=== PATIENT | male | born 1950 | race Two or more races ===

== ENCOUNTER 2024-09-10 15:09 | Inpatient (IN) | payer OTHER ==
[~2024-09-10] VITALS: Ht 167.6 cm; Wt 66.7 kg
[~2024-09-10 15:09] MED LIST: AMIT25TA19; CLON0.5T54; DOCU-94; GABA-1308; LAMO200T4; LISI-275; METH-1182; METO25TA5; NAPR-476; SIMV40TA18; TEMA30CA5; TRAM-411; [UNRECOGNIZED DRUG - CODE]
[2024-09-10 15:10] VITALS: RESP 18; O2SAT 100
[2024-09-10] MEDS: ATROPINE SULF 1 MG/10ml SYR IV ONE ×3 (15:39→18:45)
[2024-09-10] MEDS: ATROPINE SULFATE 1 MG/1 ML VIAL ONE (15:44)
[2024-09-10 15:49] LABS: Basophils # (auto) 0 10 ^3/uL (0-0.2); Eosinophils # (auto) 0 10 ^3/uL (0-0.8); Hematocrit 37.8 % (41.0-53.0); Hemoglobin 12.6 g/dL (13.5-17.5); Lymphocytes # (auto) 0.7 10 ^3/uL (0.4-5.4); Lymphocytes % (auto) 7.4 % (10.0-50.0); Mean Corpuscular Hemoglobin 31.7 pg (28.0-32.0); Mean Corpuscular Hgb Conc. 33.2 g/dL (32.0-36.0); Mean Corpuscular Volume 95.3 fL (80.0-100.0); Monocytes # (auto) 0.7 10 ^3/uL (0-1.3); Monocytes % (auto) 7.2 % (0.0-12.0); Neutrophils # (auto) 8.2 10 ^3/uL (1.6-8.6); Neutrophils % (auto) 85.4 % (37.0-80.0); Nucleated Red Blood Cells % 0.1 %; Platelet Count (auto) 79 10^3/uL (140-450); Red Blood Cells 3.97 10^6/uL (4.5-5.90); Red Cell Distribution Width 14.4 % (11.8-14.3); White Blood Cell 9.7 10^3/uL (4.4-10.8)
--- NOTE | 2024-09-10 15:55 | ED.PDOC ---
History of Present Illness HPI Comments 73 y/o M is BIBA for c/o lightheadedness, dizziness, nausea, and vomiting, today. Per EMS report, patient's spouse called on patient's behalf after endorsing symptoms for the past 3-4x days and, suddenly, began mumbling his speech, turning pale, and then sustaining a fall w/o injury or LOC, today. Patient, at time of assessment, informs onset of symptoms after consuming a "[employer]" at [place], while out with his , prior to [facility] along with additional endorsement of chills sensations, currently. EMS states on patient being bradycardic on scene and en route, with a rate within the 40's range, in addition to him having a blood glucose of 544 (patient reports being unable to take his insulin due to him vomiting). Patient denies any chest pain, shortness of breath, abdominal pain, fever, chills, or other associated symptoms or modifiers at this time. Per EMS, patient has a history of DM, HLD, HTN, WI, and CABG. Chief Complaint: Dizziness Time Seen by MD: 15:10 Reviewed Notes: Nurses Notes, Computer Equipment Repairer Notes, Medications, Allergies Allergies: Uncoded Allergies: TYPHOID (Allergy, Unknown, 09/10/24) Home Meds Reported Medications Venlafaxine Hcl (Venlafaxine Hcl Er) 75 Mg Tab 05/31/12 Tramadol Hcl (Rybix Odt) 50 Mg Tab 05/31/12 Temazepam (Restoril) 30 Mg Cap 05/31/12 Simvastatin (Simvastatin) 40 Mg Tab 05/31/12 Naproxen (Naproxen Dr) 500 Mg Tab 05/31/12 Metoprolol Tartrate (Metoprolol Tartrate) 25 Mg Tab 05/31/12 Methocarbamol (Methocarbamol) 750 Mg Tab 05/31/12 Lisinopril (Lisinopril) 5 Mg Tab 05/31/12 Lamotrigine (Lamictal Odt) 200 Mg Tab 05/31/12 Gabapentin (Gabapentin) 100 Mg Cap 05/31/12 Docusate Sodium (Colace) 100 Mg Cap 05/31/12 Clonazepam (Clonazepam Orally Disinte) 0.5 Mg Tab 05/31/12 Amitriptyline Hcl (Elavil) 25 Mg Tb 05/31/12 Information Source: Patient, Emergency Med Personnel Mode of Arrival: EMS Severity: Moderate Timing: Days Duration: Since onset Prehospital treatment: 12 Lead EKG, Accucheck, Tree Marker Past Medical History PAST MEDICAL HISTORY: DM (insulin dependent ), High Lipids, HTN, WI ( 2018) Surgical History: Appendectomy, CABG (2019) Family History Family History: Unobtainable Social History Smoker: Non-Smoker Alcohol: Denies ETOH Use Drugs: Denies Drug Use Lives In: Home All Other Systems: Reviewed and Negative (Comprehensive systems review obtained and negative except for what is stated in the HPI.) Physical Exam General Appearance: No Apparent Distress, Normal HEENT: Normal ENT Inspection, Pharynx Normal, TMs Normal Neck: Full Range of Motion, Non-Tender, Normal, Normal Inspection Respiratory: Chest Non-Tender, Lungs Clear, No Accessory Muscle Use, No Respiratory Distress, Normal Breath Sounds Cardiovascular: Bradycardia, No Edema, No JVD, No Murmur, No Gallop, Normal Per ipheral Pulses, Other (regular rhythm) Breast Exam: Deferred Gastrointestinal: No Organomegaly, Non Tender, No Pulsatile Mass, Normal Bowel Sounds, Soft Genitalia: Deferred Pelvic: Deferred Rectal: Deferred Extremities: No calf tenderness, Normal capillary refill, Normal inspection, Normal range of motion, Non-tender, No pedal edema Musculoskeletal : Apperance: Normal Neurologic: Alert, technologies division chair II-XII nml as Tested, No Motor Deficits, Normal Affect, Normal Mood, No Sensory Deficits Cerebellar Function: Normal Reflexes: Normal Skin: Dry, Normal Color, Warm Lymphatic: No Adenopathy Was a procedure done? Was a procedure done?: Yes Sedation Sedation?: No Informed consent obtained: No Central Line Recorder of insertion practice: Film Processing Shift Supervisor Occupation of label folder: Attending Physician Indication: Other (Transvenous Pacing) Room prepared for procedure: Yes Film Processing Shift Supervisor performed hand hygien: Yes Maximal sterile barrier precau: Mask/Eye shield, Sterlie gloves, Large sterlie drape Skin Preparation: Chlorhexidine gluconate Skin preparation completely dr: Yes Insertion site: Right, Internal jugular Central line catheter type: Other (Transvenous Pacer) Number of lumens: 1 Central line exchanged over a: Yes Antiseptic ointment applied to: Yes Post Assessment: Chest X-Ray, Proper placement, No Pneumothorax Informed consent obtained: No Risks/benefits/alt described: No Notes Patient with symptomatic bradycardia. Transvenous pacer was placed in the ER. Intubation Indication: Respiratory Insufficiency, Airway Protection Prep: Preoxygenation Pretreated with: Other (Versed) Medicated with: Other (Rocuronium) Intubation Approach: Orotracheal Intubation size: cm (8) Informed consent obtained: No Risks/benefits/alt described: No Differential Dx Considerations may include: anemia, viral syndrome, electrolyte imbalance, spoiled food, vertigo, sepsis, among others X-Ray, Labs, Meds, VS Vital Signs Date Time Temp Pulse Resp B/P (MAP) Pulse Ox O2 Delivery O2 Flow Rate FiO2 09/10/24 18:15 53 16 120/70 (87) 100 09/10/24 17:45 109 16 129/82 (98) 100 09/10/24 17:37 127/89 09/10/24 17:35 122/86 09/10/24 17:34 122/86 09/10/24 17:32 124/86 09/10/24 17:30 122 16 124/86 (99) 100 09/10/24 17:30 124/86 09/10/24 17:29 116/89 09/10/24 17:26 116/89 09/10/24 17:25 116/89 09/10/24 17:22 123/66 09/10/24 17:15 70 16 116/58 (77) 100 09/10/24 17:00 27 16 74/43 (53) 100 09/10/24 17:00 74/43 09/10/24 16:58 74/43 09/10/24 16:57 76/40 09/10/24 16:57 76/40 09/10/24 16:56 70/40 09/10/24 16:55 76/40 09/10/24 16:55 76/40 09/10/24 16:54 76/40 09/10/24 16:49 91/56 09/10/24 16:45 94 16 91/61 (71) 100 09/10/24 16:41 89 09/10/24 16:40 92 16 106/68 (81) 100 100 09/10/24 16:36 134/83 09/10/24 16:35 134/83 09/10/24 16:30 100 17 130/80 (97) 99 09/10/24 16:15 40 16 81/47 (58) 100 09/10/24 16:00 43 17 85/36 (52) 100 09/10/24 15:45 43 17 95/63 (74) 89 09/10/24 15:30 95 18 95/63 (74) 100 09/10/24 15:21 94 09/10/24 15:10 97.8 41 20 86/42 (57) 100 97.8 09/10/24 15:10 18 100 Room Air* 0 21 Lab Test 09/10/24 18:08 09/10/24 15:47 09/10/24 15:32 09/10/24 11:53 Range/Units Blood Gas Specimen Type Arterial Blood Gas Sample Site Left radial Blood Gas Patient Temperature 37.0 Arterial Blood Date Drawn [id number] Arterial Blood pH 7.275 L 7.350-7.450 Arterial Blood Partial Pressure CO2 32.7 L 35.0-48.0 mmHg Arterial Blood Partial Pressure O2 183.9 H 83.0-108.0 mmHg Arterial Blood HCO3 14.8 L 21.0-28.0 mmol/L Arterial Blood Oxygen Saturation 98.8 H 94.0-98.0 % Arterial Blood Base Excess -10.8 L -2.0-3.0 mmol/L Arterial Blood Oxyhemoglobin 98.2 H 94.0-98.0 % Arterial Blood Carboxyhemoglobin 0.3 L 0.5-1.5 % Arterial Blood Methemoglobin 0.3 0.0-1.5 % Bruno Test Modified Blood Gas Total Hemoglobin 12.90 L 13.5-17.5 g/dL Blood Gas Set Respiration Rate 16.0 Blood Gas Modality Vent - ac FiO2 % 60.0 Blood Gas Tidal Volume 500.0 Blood Gas PEEP or CPAP 5.0 Urine Color Yellow Yellow Urine Clarity Clear Clear Urine pH 5.0 5.0-9.0 Urine Specific [place] 1.019 1.001-1.035 Urine Protein Negative Negative Urine Ketones 1+ H Negative Urine Blood Negative Negative /uL Urine Nitrite Negative Negative Urine Bilirubin Negative Negative Urine Urobilinogen Normal Negative mg/dL Urine Leukocyte Esterase Negative Negative /uL Urine RBC 1 0 - 3 /hpf Urine Microscopic WBC 2 0-3 /HPF Urine Squamous Epithelial Cells Few <5 /hpf Urine Bacteria None seen None Seen /hpf Urine Hyaline Casts Many 0 - 2 /lpf Urine Mucus Few None Seen Urine Glucose 4+ H Normal mg/dL White Blood Count 9.7 4.4-10.8 10^3/uL Red Blood Count 3.97 L 4.5-5.90 10^6/uL Hemoglobin 12.6 L 13.5-17.5 g/dL Hematocrit 37.8 L 41.0-53.0 % Mean Corpuscular Volume 95.3 80.0-100.0 fL Mean Corpuscular Hemoglobin 31.7 28.0-32.0 pg Mean Corpuscular Hemoglobin Concent 33.2 32.0-36.0 g/dL Red Cell Distribution Width 14.4 H 11.8-14.3 % Platelet Count 79 L 140-450 10^3/uL Mean Platelet Volume 10.2 6.9-10.8 fL Neutrophils (%) (Auto) 85.4 H 37.0-80.0 % Lymphocytes (%) (Auto) 7.4 L 10.0-50.0 % Monocytes (%) (Auto) 7.2 0.0-12.0 % Eosinophils (%) (Auto) 0.0 0.0-7.0 % Basophils (%) (Auto) 0.0 0.0-2.0 % Neutrophils # (Auto) 8.2 1.6-8.6 10 ^3/uL Lymphocytes # (Auto) 0.7 0.4-5.4 10 ^3/uL Monocytes # (Auto) 0.7 0-1.3 10 ^3/uL Eosinophils # (Auto) 0 0-0.8 10 ^3/uL Basophils # (Auto) 0 0-0.2 10 ^3/uL Nucleated Red Blood Cells 0.1 % Platelet Estimate Decreased Red Blood Cell Morphology Normal Prothrombin Time 14.6 H 9.3-11.8 sec Prothrombin Time INR 1.43 H 0.9-1.15 Activated Partial Thromboplast Time 27.9 24.5-34.5 SEC Sodium Level 132 L 136-145 mmol/L Potassium Level 4.9 3.5-5.1 mmol/L Chloride Level 97 L 98-107 mmol/L Carbon Dioxide Level 19 L 20-31 mmol/L Anion Gap 16 H 5-15 Blood Urea Nitrogen 75 H 9-23 mg/dL Creatinine 2.25 H 0.700-1.30 mg/dL Glomerular Filtration Rate Calc 30 >90 mL/min BUN/Creatinine Ratio 33.3 H 10.0-20.0 Serum Glucose 540 *H 74-106 mg/dL Lactic Acid Level 8.7 *H 0.4-2.0 mmol/L Calcium Level 8.7 8.7-10.4 mg/dL Magnesium Level 2.6 1.6-2.6 mg/dL Total Bilirubin 2.2 H 0.2-1.0 mg/dL Aspartate Amino Transferase (AST) 865 H 13-40 U/L Alanine Aminotransferase (ALT) 805 H 7-40 U/L Alkaline Phosphatase 79 46-116 U/L Ammonia < 10 L 11-32 umol/L Troponin I High Sensitivity > 83680 *H </=54 ng/L Total Protein 6.0 5.7-8.2 g/dL Albumin 3.9 3.2-4.8 g/dL Triglycerides Level 92 < 150 mg/dL Cholesterol Level 87 < 200 mg/dL LDL Cholesterol 34 < 100 mg/dL HDL Cholesterol 35 L 40-59 mg/dL Beta-Hydroxybutyric Acid 0.325 < 0.4 mmol/L Thyroid Stimulating Hormone (TSH) 4.76 0.55-4.78 uIU/mL Hemoglobin A1c 7.8 H <5.7 % A1C Current Medications Medications (Trade) Dose Ordered Sig/Mervat Route Start Time Stop Time Status Last Admin Atropine Sulfate (Atropine Sulfate) 1 mg ONCE ONCE IV 09/10/24 15:35 09/10/24 15:43 DC 09/10/24 15:39 Rocuronium [place] 100 mg ONCE ONCE IV 09/10/24 16:30 09/10/24 16:40 DC 09/10/24 16:35 Midazolam HCl (Versed Injection) 10 mg ONCE ONCE IV 09/10/24 16:30 09/10/24 16:40 DC 09/10/24 16:34 Dopamine HCl/ Dextrose 250 ml @ 13.631 mls/ hr [id number] ONCE IV 09/10/24 16:45 09/11/24 11:05 09/10/24 16:49 Sodium Chloride 1,000 ml @ 1,000 mls/hr Q1H ONCE IV 09/10/24 16:45 09/10/24 17:44 DC 09/10/24 16:45 Epinephrine HCl 250 ml @ 7.5 mls/hr Q24H IV 09/10/24 17:00 09/10/24 16:54 Norepinephrine Bitartrate 250 ml @ 3.75 mls/hr Q24H IV 09/10/24 17:00 09/10/24 16:55 Atropine Sulfate (Atropine Sulfate) 1 mg ONCE ONCE IV 09/10/24 18:45 09/10/24 18:44 DC 09/10/24 16:48 Fentanyl Citrate 250 ml @ 2.5 mls/hr Q24H IV 09/10/24 19:00 09/10/24 16:36 Time of 1ST Reevaluation: 15:40 Reevaluation 1ST: Unchanged Patient Education/Counseling: Diagnosis, Treatment Family Education/Counseling: No Family Present Additional Information Previous medical encounters reviewed: May 31, 2012 encounter for black stool The following tests were ordered, and results were reviewed by me: CXR, EKG, ammonia, troponin, UA, lactic acid w/reflex, CMP, CBC Additional Information was gathered from interviewing the following independent historians: EMS I reviewed and agreed with the following test results read by other providers: CXR I discussed treatment and results with medical personnel and: Patient Departure 1 Departure Time of Disposition: 19:56 (Patient presented from home with symptomatic bradycardia. Patient was hypotensive becoming unresponsive. Patient then began aspirating. Patient was emergently intubated. Right IJ transvenous pacer was placed. Patient was placed appropriately. Patient was started on pressors. Discussed the case emergently with Dr. Galo who recommended once stabilized he will take the patient to dye lab technician. Patient went to dye lab technician) Impression: Primary Impression: Symptomatic bradycardia Additional Impressions: Acute chest pain Metabolic encephalopathy Cardiogenic shock Disposition: ADMITTED INPATIENT Admit to: ICU Condition: Critical Critical Care Note Critical Care Time?: Yes Critical care comment: Cardiogenic shock Authorized and Performed by: Lindsey Guardado MD Total critical care time: Approximately 122 minutes Due to a high probability of clinically significant, life threatening deterioration, the patient required my highest level of preparedness to intervene emergently and I personally spent this critical care time directly and personally managing the patient. This critical care time included obtaining a history; examining the patient; pulse oximetry; ordering and review of studies; arranging urgent treatment with development of a management plan; evaluation of patient's response to treatment; frequent reassessment; and, discussions with o ther providers. This critical care time was performed to assess and manage the high probability of imminent, life-threatening deterioration that could result in multi-organ failure. It was exclusive of separately billable procedures and treating other patients and teaching time. Please see my other sections and the rest of the note for further information on patient assessment and treatment. Stability Stability form required: No Heart Score Heart Score: Heart Score Response (Comments) Value History N/A 0 EKG N/A 0 Age N/A 0 Risk Factors N/A 0 Troponin N/A 0 Total 0 I personally scribed for LINDSEY GUARDADO MD ([email or web address]) on 09/10/24 at 15:55. Electronically submitted by Fran Pate ([email or web address]). LINDSEY GUARDADO MD Sep 10, 2024 15:55
[2024-09-10 15:56] LABS: Urine Bacteria None Seen /hpf (None Seen)
--- NOTE | 2024-09-10 15:59 | DVH ---
EXAM: XY CHEST PORTABLE TECHNIQUE: Single frontal chest radiograph CLINICAL HISTORY: sob COMPARISON: None Findings/Impression: Frontal chest radiograph demonstrates no acute osseous or superficial soft tissue abnormalities. The trachea is midline. The cardiac silhouette and mediastinum are within normal limits. No pneumothorax, pleural effusions, or consolidations.
[2024-09-10 16:07] LABS: Albumin 3.9 g/dL (3.2-4.8); Alkaline Phosphatase 79 U/L (46-116); Anion Gap 16 (5-15); BUN/Creatinine Ratio 33.3 (10.0-20.0); Potassium 4.9 mmol/L (3.5-5.1)
[2024-09-10 16:08] LABS: Alanine Aminotransferase 805 U/L (7-40); Aspartate Aminotransferase 865 U/L (13-40); Blood Urea Nitrogen 75 mg/dL (9-23); Calcium 8.7 mg/dL (8.7-10.4); Carbon Dioxide 19 mmol/L (20-31); Chloride 97 mmol/L (98-107); Sodium 132 mmol/L (136-145)
[2024-09-10 16:13] LABS: Bilirubin, Total 2.2 mg/dL (0.2-1.0); Glucose 540 mg/dL (74-106); Lactic Acid w/Reflex 8.7 mmol/L (0.4-2.0)
[2024-09-10 16:22] LABS: Urine Blood Negative /uL (Negative); Urine Clarity Clear (Clear); Urine Color Yellow (Yellow); Urine Hyaline Cast MANY /lpf (0 - 2); Urine Mucus FEW (None Seen); Urine Protein, UAD Negative (Negative); Urine Specific Gravity 1.019 (1.001-1.035); Urine Squamous Epithelial Cell FEW /hpf (<5); Urine Urobilinogen Normal (Negative); Urine WBC 2 /HPF (0-3)
[2024-09-10] MEDS: ROCURONIUM 10MG/ML 10ML VIAL IV ONE ×2 (16:27→16:35)
[2024-09-10] MEDS: SODIUM BICARB 8.4% 50Meq/50ml SYR INJ ONE (16:30)
[2024-09-10] MEDS: MIDAZOLAM DRIP 50 mg/50mL 50 ML IV ONE ×2 (16:34→19:33)
[2024-09-10] MEDS: MIDAZOLAM HCL 5 MG/ML-1ML VIAL IV ONE (16:34)
[2024-09-10] MEDS: fentaNYL Drip 2500mCg/250mlNS 250 ML IV ONE (16:36)
[2024-09-10] MEDS: fentaNYL Drip 2500mCg/250mlNS 250 ML IV SCH (16:36)
[2024-09-10] MEDS: DOPamine 1600MCG/ML D5W 250 ML IV ONE ×2 (16:39→16:49)
--- NOTE | 2024-09-10 16:41 | DVHINCON2 ---
Date Seen: Sep 10, 2024 Referring Physician MD Debby Reason for Consultation NSTEMI History of Present Illness This is a 73-year-old man who presented to the emergency room via EMS with a chief complaint of dizziness. At time of assessment, the patient was being endotracheally intubated, on single vasopressor, and chemically sedated. Information obtained from medical staff and who stated the patient has dete riorated including multiple events of dizziness, lightheadedness, chest pain, intermittent confusion, fall injuries, and seizure-like activity for the past week. States the patient was clenching over his chest and holding over his throat and jaw area which prompted her to call EMS. Prior to endotracheal intubation the patient displayed a sinus rhythm with intermittent bradycardia and sinus pauses for approximately 6 sec at a time for which the patient was initiated on an Epinephrine and Dopamine drip and a bedside temporary transvenous pacer placed by ED physician. He underwent multiple twelve lead electrocardiograms revealing a sinus rhythm with an associated right bundle branch block, left anterior fascicular block, and diffuse non-specific ST segment changes. Troponin levels were found >25,000 ng/L. Blood glucose level at 540 mg/dL. Dr. Guardado communicated directly with Dr. Galo, repairer controller tester STEMI, with recommendations for an urgent cardiac catheterization and coronary angiogram. Significant medical history includes coronary artery disease status post quadruple vessel coronary artery bypass graft in 2020 at [facility], hypertension, dyslipidemia, diabetes mellitus type 2, GERD, and chronic back pain. Past Medical History Past medical history reviewed. No other significant than mentioned above. Past Surgical History Quadruple vessel CABG, 2020 Family History Family history reviewed. Social History Denies the use of illicit drugs, alcohol, or tobacco use. Allergies: Uncoded Allergies: TYPHOID (Allergy, Unknown, 09/10/24) Home Meds Reported Medications Venlafaxine Hcl (Venlafaxine Hcl Er) 75 Mg Tab 05/31/12 Tramadol Hcl (Rybix Odt) 50 Mg Tab 05/31/12 Temazepam (Restoril) 30 Mg Cap 05/31/12 Simvastatin (Simvastatin) 40 Mg Tab 05/31/12 Naproxen (Naproxen Dr) 500 Mg Tab 05/31/12 Metoprolol Tartrate (Metoprolol Tartrate) 25 Mg Tab 05/31/12 Methocarbamol (Methocarbamol) 750 Mg Tab 05/31/12 Lisinopril (Lisinopril) 5 Mg Tab 05/31/12 Lamotrigine (Lamictal Odt) 200 Mg Tab 05/31/12 Gabapentin (Gabapentin) 100 Mg Cap 05/31/12 Docusate Sodium (Colace) 100 Mg Cap 05/31/12 Clonazepam (Clonazepam Orally Disinte) 0.5 Mg Tab 05/31/12 Amitriptyline Hcl (Elavil) 25 Mg Tb 05/31/12 Home Meds Home medications reviewed. Review of Systems Constitutional: No symptom reported Ears, Nose, & Throat: No symptom reported Eyes: No symptom reported Neurological: Dizziness, confusion Pulmonary/Respiratory: No symptom reported Cardiovascular: Chest pain Gastrointestinal: No symptom reported Genitourinary: No symptom reported Musculoskeletal: No symptom reported Skin: No symptom reported Psychiatric: No symptom reported Endocrine: No symptom reported Hemotologic/Lymphatic: No symptom reported Vital Signs Vital Signs Date Time Temp Pulse Resp B/P (MAP) Pulse Ox O2 Delivery O2 Flow Rate FiO2 09/10/24 15:21 94 09/10/24 15:10 97.8 20 86/42 (57) 100 97.8 Physical Exam General Appearance: Endotracheally intubated 100% FiO2. Chemically sedated. On multiple vasopressors Head Exam: Normal inspection Neck Exam: Normal inspection. Normal alignment Pulmonary/Respiratory: Clear bilateral breath sounds Cardiovascular/Chest: Regular rate and rhythm. S1, S2. Sinus rhythm with a associated RBBB, LAFB, and diffuse ischemia. No murmurs. No JVD. Peripheral Pulses: 2+ Radial (R). 2+ Radial (L). 2+ Pedal (R). 2+ Pedal (L) Abdominal Exam: Normal bowel sounds. Soft. Nontender. No hepatospenomegaly. No masses Ankle Exam: Negative ankle edema Lower extremities: Negative lower extremity edema Neuro/Mental Status: Chemically sedated Thoughts/Psych: Unable to assess Appearance: Withdrawn Skin Exam: Normal inspection. Normal color. Warm. Dry Labs/Diagnostic Data Labs Test 09/10/24 15:47 09/10/24 15:32 Range/Units Urine Color Yellow Yellow Urine Clarity Clear Clear Urine pH 5.0 5.0-9.0 Urine Specific [place] 1.019 1.001-1.035 Urine Protein Negative Negative Urine Ketones 1+ H Negative Urine Blood Negative Negative /uL Urine Nitrite Negative Negative Urine Bilirubin Negative Negative Urine Urobilinogen Normal Negative mg/dL Urine Leukocyte Esterase Negative Negative /uL Urine RBC 1 0 - 3 /hpf Urine Microscopic WBC 2 0-3 /HPF Urine Squamous Epithelial Cells Few <5 /hpf Urine Bacteria None seen None Seen /hpf Urine Hyaline Casts Many 0 - 2 /lpf Urine Mucus Few None Seen Urine Glucose 4+ H Normal mg/dL White Blood Count 9.7 4.4-10.8 10^3/uL Red Blood Count 3.97 L 4.5-5.90 10^6/uL Hemoglobin 12.6 L 13.5-17.5 g/dL Hematocrit 37.8 L 41.0-53.0 % Mean Corpuscular Volume 95.3 80.0-100.0 fL Mean Corpuscular Hemoglobin 31.7 28.0-32.0 pg Mean Corpuscular Hemoglobin Concent 33.2 32.0-36.0 g/dL Red Cell Distribution Width 14.4 H 11.8-14.3 % Platelet Count 79 L 140-450 10^3/uL Mean Platelet Volume 10.2 6.9-10.8 fL Neutrophils (%) (Auto) 85.4 H 37.0-80.0 % Lymphocytes (%) (Auto) 7.4 L 10.0-50.0 % Monocytes (%) (Auto) 7.2 0.0-12.0 % Eosinophils (%) (Auto) 0.0 0.0-7.0 % Basophils (%) (Auto) 0.0 0.0-2.0 % Neutrophils # (Auto) 8.2 1.6-8.6 10 ^3/uL Lymphocytes # (Auto) 0.7 0.4-5.4 10 ^3/uL Monocytes # (Auto) 0.7 0-1.3 10 ^3/uL Eosinophils # (Auto) 0 0-0.8 10 ^3/uL Basophils # (Auto) 0 0-0.2 10 ^3/uL Nucleated Red Blood Cells 0.1 % Sodium Level 132 L 136-145 mmol/L Potassium Level 4.9 3.5-5.1 mmol/L Chloride Level 97 L 98-107 mmol/L Carbon Dioxide Level 19 L 20-31 mmol/L Anion Gap 16 H 5-15 Blood Urea Nitrogen 75 H 9-23 mg/dL Creatinine 2.25 H 0.700-1.30 mg/dL Glomerular Filtration Rate Calc 30 >90 mL/min BUN/Creatinine Ratio 33.3 H 10.0-20.0 Serum Glucose 540 *H 74-106 mg/dL Lactic Acid Level 8.7 *H 0.4-2.0 mmol/L Calcium Level 8.7 8.7-10.4 mg/dL Total Bilirubin 2.2 H 0.2-1.0 mg/dL Aspartate Amino Transferase (AST) 865 H 13-40 U/L Alanine Aminotransferase (ALT) 805 H 7-40 U/L Alkaline Phosphatase 79 46-116 U/L Ammonia < 10 L 11-32 umol/L Troponin I High Sensitivity > 57583 *H </=54 ng/L Total Protein 6.0 5.7-8.2 g/dL Albumin 3.9 3.2-4.8 g/dL Assessment High-risk non ST-elevation myocardial infarction Sick sinus syndrome with severe bradycardia and sinus pauses s/p TV pacer Rule out progressive coronary artery disease Rule out structural heart disease Coronary artery disease status post quadruple CABG, 2020 Diabetes mellitus with diabetic ketoacidosis HX of hypertension Dyslipidemia Thrombocytopenia Likely AVA on CKD Plan/Recommendation (Dr. Galo) Dr. Guardado discussed case with Dr. Galo. Patient deemed to be a high risk NSTEMI for which he has been scheduled for an urgent cardiac catheterization and coronary angiogram at first available. All risks and benefits of the procedure were discussed with at bedside who agrees to proceed with intervention. Anticoagulation therapy held at this time given thrombocytopenia. We will obta in a transthoracic echocardiogram to evaluate cardiac function. In the meantime, continue vasopressors for hemodynamic support. Transvenous pacemaker set for a HR of 70 bpm. Obtain nephrology consult given likely AVA with high risk for KEVIN. Rest of plan per clinical course. Thank you for allowing us to participate in this patient's care. Please call if you have any questions or concerns. Critical care time: 73 min. This medical document was created using an electronic medical record system with voice recognition software and computerized dictation system. Although this document has been carefully reviewed, there might still be some phonetic and typographical errors. Occasional wrong-word or ``sound-alike substitutions may have occurred due to the inherent limitations of voice recognition software. These areas are purely typographical due to imperfections of the software programs and do not reflect any compromise in the patient's medical care. Please read the chart carefully and recognize, using context, where these substitutions have occurred. Plan discussed with: Spouse, Other NYHA Physical activity limitations: NA Date of Service: Sep 10, 2024 Billing Provider: GAYATHRI DOWNING Cardiology Common Codes: 16071-PIDAKOEV CARE 30-74 MIN GAYATHRI DOWNING Sep 10, 2024 16:41
[2024-09-10] MEDS: SODIUM CHLORIDE 0.9% 1,000 ML IV ONE ×2 (16:45→19:00)
--- NOTE | 2024-09-10 16:48 | ECG ---
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
[2024-09-10] MEDS: EPINEPHrine HCL 250 ML IV ONE (16:49)
[2024-09-10 16:53] LABS: Platelet Estimate Decreased; RBC Morphology Normal
[2024-09-10] MEDS: EPINEPHrine HCL 250 ML IV SCH (16:54)
[2024-09-10] MEDS: NOREPINEPHRINE 8 MG/250ML KIT 250 ML IV SCH (16:55)
[2024-09-10] MEDS: PHENYLEPHRINE IV 250 ML IV ONE (17:05)
--- NOTE | 2024-09-10 17:24 | DVH ---
EXAM: XY CHEST PORTABLE TECHNIQUE: Single frontal chest radiograph CLINICAL HISTORY: Post-intubation COMPARISON: XY CHEST PORTABLE on DOS: 09/10/24 Findings/Impression: Frontal chest radiograph demonstrates no acute osseous or superficial soft tissue abnormalities. Endotracheal tube terminates 5.2 cm from the raffi. The trachea is midline. The cardiac silhouette and mediastinum are within normal limits. No pneumothorax, pleural effusions, or consolidations.
[2024-09-10 17:26] LABS: Triglycerides 92 mg/dL (< 150)
[2024-09-10 17:27] LABS: LDL Cholesterol 34 mg/dL (< 100)
[2024-09-10 17:28] LABS: Cholesterol 87 mg/dL (< 200)
[2024-09-10 17:29] LABS: HDL Cholesterol 35 mg/dL (40-59)
[2024-09-10 17:34] LABS: INR 1.43 (0.9-1.15); Partial Thromboplastin Time 27.9 SEC (24.5-34.5); Prothrombin Time 14.6 sec (9.3-11.8)
--- NOTE | 2024-09-10 17:58 | DVHHP2 ---
History of Present Illness History of Present Illness 73 y/o M pmh dm, hld, htn, mi, cabg cc pt was brought in by ambulance cc per patient had chest pain he has been having chest pain for four years. But Tuesday they went to [employer] and he has a fist for lay she felt bad after eating the fish related but her was doing okay but he ended up eating one fistula laid in the later on the afternoon he ate the second one and 30 minutes after that he started vomiting he vomited all day Tuesday and Tuesday. He also started coughing violently on Tuesday. She also state he started cough in his morning with a weird sound and she was concerned she thought it was a dog but when she went to check on her he was putting his hand on his stroke and he was moving his tongue back and forth in his mouth. She was concerned so she called 911 for evaluation. When nursing was speaking with the patient he states he felt dizziness nausea and vomiting has been going on for Tuesday after he ate the fish for lay from [employer]. Patient was doing fine but later in the ER he had bradycardic and became hypotensive. So they intubated him for airway protection. He also was so bradycardia that he had to be trans paced. [place] [address] so Cardiology was called and we will sent directly to the [facility] lab[facility] but according to his he had questionable episode of falling. So she was concerned maybe he hit his head since patient has altered so they wanted to make sure CT scan of the brain showed no bleed which was negative. Patient was taken to the [facility] lab[facility] and we will be admitted to ICU after they had catheterization. When looking at labs CBC was unremarkable hemoglobin was 12.6 37.8 platelet count was [address] lactate was 8.7 ammonia was less than 10 troponin [place] 91120 TSH was 4.76 INR was 1.43 chest x-ray showed intubation. Past Medical History Diabetes hyperlipidemia hypertension [place] four years ago along with a CABG Past Surgical History Appendectomy and CABG Family History Unable to assess due to current mental status Past Social History Unable to assess due to current mental status Review of Systems Review of Systems Unable to assess due to current mental status intubated Respiratory: Cough Gastrointestinal: Nausea, Vomiting Allergies: Uncoded Allergies: TYPHOID (Allergy, Unknown, 09/10/24) Medications Current Medications Medications Dose Ordered Sig/Mervat Route Start Time Stop Time Status Last Admin Dose Admin Epinephrine HCl 250 ml @ 7.5 mls/hr Q24H IV 09/10/24 17:00 Norepinephrine Bitartrate 250 ml @ 3.75 mls/hr Q24H IV 09/10/24 17:00 Phenylephrine HCl 250 ml @ 30 mls/hr Q8H20M IV 09/10/24 17:15 Exam Vital Signs Vital Signs Date Time Temp Pulse Resp B/P (MAP) Pulse Ox O2 Delivery O2 Flow Rate FiO2 09/10/24 17:45 109 16 129/82 (98) 100 09/10/24 16:40 100 09/10/24 15:10 97.8 97.8 09/10/24 15:10 Room Air* 0 General Appearance: Other (Intubated) Respiratory: Other (Intubated lung sounds) Cardiovascular: Other (Bradycardia paced) Abdominal: Normal bowel sounds, Soft, No tenderness, No hepatospenomegaly, No masses Extremities: No clubbing, No cyanosis, No edema, Normal pulses, No tenderness/swelling Labs/Xrays Chest x-ray intubated at this time Labs Test 09/10/24 15:47 09/10/24 15:32 Range/Units Urine Color Yellow Yellow Urine Clarity Clear Clear Urine pH 5.0 5.0-9.0 Urine Specific [place] 1.019 1.001-1.035 Urine Protein Negative Negative Urine Ketones 1+ H Negative Urine Blood Negative Negative /uL Urine Nitrite Negative Negative Urine Bilirubin Negative Negative Urine Urobilinogen Normal Negative mg/dL Urine Leukocyte Esterase Negative Negative /uL Urine RBC 1 0 - 3 /hpf Urine Microscopic WBC 2 0-3 /HPF Urine Squamous Epithelial Cells Few <5 /hpf Urine Bacteria None seen None Seen /hpf Urine Hyaline Casts Many 0 - 2 /lpf Urine Mucus Few None Seen Urine Glucose 4+ H Normal mg/dL White Blood Count 9.7 4.4-10.8 10^3/uL Red Blood Count 3.97 L 4.5-5.90 10^6/uL Hemoglobin 12.6 L 13.5-17.5 g/dL Hematocrit 37.8 L 41.0-53.0 % Mean Corpuscular Volume 95.3 80.0-100.0 fL Mean Corpuscular Hemoglobin 31.7 28.0-32.0 pg Mean Corpuscular Hemoglobin Concent 33.2 32.0-36.0 g/dL Red Cell Distribution Width 14.4 H 11.8-14.3 % Platelet Count 79 L 140-450 10^3/uL Mean Platelet Volume 10.2 6.9-10.8 fL Neutrophils (%) (Auto) 85.4 H 37.0-80.0 % Lymphocytes (%) (Auto) 7.4 L 10.0-50.0 % Monocytes (%) (Auto) 7.2 0.0-12.0 % Eosinophils (%) (Auto) 0.0 0.0-7.0 % Basophils (%) (Auto) 0.0 0.0-2.0 % Neutrophils # (Auto) 8.2 1.6-8.6 10 ^3/uL Lymphocytes # (Auto) 0.7 0.4-5.4 10 ^3/uL Monocytes # (Auto) 0.7 0-1.3 10 ^3/uL Eosinophils # (Auto) 0 0-0.8 10 ^3/uL Basophils # (Auto) 0 0-0.2 10 ^3/uL Nucleated Red Blood Cells 0.1 % Platelet Estimate Decreased Red Blood Cell Morphology Normal Prothrombin Time 14.6 H 9.3-11.8 sec Prothrombin Time INR 1.43 H 0.9-1.15 Activated Partial Thromboplast Time 27.9 24.5-34.5 SEC Sodium Level 132 L 136-145 mmol/L Potassium Level 4.9 3.5-5.1 mmol/L Chloride Level 97 L 98-107 mmol/L Carbon Dioxide Level 19 L 20-31 mmol/L Anion Gap 16 H 5-15 Blood Urea Nitrogen 75 H 9-23 mg/dL Creatinine 2.25 H 0.700-1.30 mg/dL Glomerular Filtration Rate Calc 30 >90 mL/min BUN/Creatinine Ratio 33.3 H 10.0-20.0 Serum Glucose 540 *H 74-106 mg/dL Lactic Acid Level 8.7 *H 0.4-2.0 mmol/L Calcium Level 8.7 8.7-10.4 mg/dL Total Bilirubin 2.2 H 0.2-1.0 mg/dL Aspartate Amino Transferase (AST) 865 H 13-40 U/L Alanine Aminotransferase (ALT) 805 H 7-40 U/L Alkaline Phosphatase 79 46-116 U/L Ammonia < 10 L 11-32 umol/L Troponin I High Sensitivity > 91394 *H </=54 ng/L Total Protein 6.0 5.7-8.2 g/dL Albumin 3.9 3.2-4.8 g/dL Triglycerides Level 92 < 150 mg/dL Cholesterol Level 87 < 200 mg/dL LDL Cholesterol 34 < 100 mg/dL HDL Cholesterol 35 L 40-59 mg/dL Thyroid Stimulating Hormone (TSH) 4.76 0.55-4.78 uIU/mL Assessment/Plan Assessment/Plan Assessment/Plan nstemi metabolic encephalopathy needing intubation Acute sepsis Metabolic acidosis (sepsis likely from cardiogenic shock) needing intubation Acute lactic acidosis Severe leukocytosis Severe elevation in troponin consistent with NSTemi uncontrolled type 2 dm rule out dka acute thrombocytopenia chronic problems hld htn mi 4yrs ago cabg 4 yrs ago 1.Admit to intensive care unit 2.Breathing treatment as per respiratory, continue vent per abg curent abg shows metabolic acidosis ordered follow-up ABG, 3.Pain control management continue Versed drip 4.IV antibiotic management for sepsis source unknown ordered vanco and zosyn for now pt with elevated lactic and wbc elevated 5.Management of fluids and electrolytes, continue Aguayo catheter, OG tube strict IO's continue cont triple lumen, follow-up labs in am, ordered ivf ns for now 6.Consultation for cardiology post cath instruction per cards recs appears Dr. Galo will assist with procedure ct brain negative for bleed will start heparin for now monitor plt count currently low 79,000 cards consult follow recs for grossly elevated trop x3, will need to r/o NSTEMi pulmonary for vent management ordered heparin drip for now 7.Diagnostic test follow-up ordered echocardiogram fu results chest x-ray shows endotracheal tube in place ct brain negative for bleed pt send directly to [facility] 8.DVT prophylaxis, ordered heparin drip (will need to confirm with cards since thrombocytopenia) scd for now 9.Repeat labs now follow-up labs in a.m. ordered blood culture and lactic fu results order hemoglobin a1c in am ordered beta OH ordered accucheck q1h if with dka start of insulin drip 10.Continue with current medical management npo for now strict IO's 11.Treatment plan discussed and goals of care with and asuncion [id number] want full code for now Plan Admit to ICU Plan discussed with: Spouse, and son Plan discussed with: Spouse, Son Date of Service: Sep 10, 2024 Billing Provider: SADIE SARKAR DNP Common Visit Codes: 92440-[id number] INP/OBS CARE (HIGH), [id number] CARE 30- 74 MIN SADIE SARKAR DNP Sep 10, 2024 17:58
--- NOTE | 2024-09-10 17:58 | DVH ---
EXAM: XY CHEST XRAY 1 VIEW TECHNIQUE: Single frontal chest radiograph CLINICAL HISTORY: s/p transvenous pacemaker COMPARISON: XY CHEST PORTABLE on DOS: 09/10/24, XY CHEST PORTABLE on DOS: 09/10/24 Findings/Impression: Frontal chest radiograph demonstrates no acute osseous or superficial soft tissue abnormalities. Endotracheal tube terminates 3.5 cm from the raffi. Interval transvenous pacemaker terminates near t he right atrium. The trachea is midline. The cardiac silhouette and mediastinum are within normal limits. No pneumothorax, pleural effusions, or consolidations.
[2024-09-10 18:08] VITALS: BP 122/83; PULSE 107; RESP 16; O2SAT 98
[2024-09-10 18:15] LABS: Base Excess -10.8 mmol/L (-2.0-3.0)
--- NOTE | 2024-09-10 18:24 | DVH ---
EXAM: CT HEAD WITHOUT CONTRAST DATE OF SERVICE: 09/10/2024 05:52 PM ORDERING PHYSICIAN: LINDSEY VU REASON FOR EXAM: Confusion with fall injuries TECHNIQUE: COMPARISON: None FINDINGS: There is very slight cortical atrophy. There is no midline shift or focal mass effect the h ippocampal structures are symmetric there is no intracranial fluid collection or signs of hemorrhage. Midline structures are unremarkable Paranasal sinuses and mastoid air cells are clear calvarium is intact IMPRESSION: 1. . Mild cortical atrophy otherwise unremarkable study
[2024-09-10] MEDS: MIDAZOLAM HCL 10 ML IV ONE (18:40)
[2024-09-10] MEDS: NOREPINEPHRINE 8 MG/250ML KIT 250 ML IV ONE ×2 (18:41→21:15)
[2024-09-10] MEDS: LIDOCAINE 2%HCL (LOCAL ANESTH.) INJ 20ML MDV ONE ×2 (18:45→20:41)
[2024-09-10] MEDS: PHENYLEPHRINE IV 250 ML IV SCH (18:50)
--- NOTE | 2024-09-10 18:56 | ECG ---
[facility] Test Date: 2024-09-10 Test Time: 16:41:35 Pat Name: FABIO KNUTSON Department: ED Room: [address] [place] [address] Gender: M [employer]: AUREA : 1950 Requested By: SADIE SARKAR Order Number: [id number] Reading MD: Piter Peacock Measurements Intervals [place] Rate: 89 P: 18 AK: 170 QRS: -88 QRSD: 177 T: 97 QT: 468 QTc: 570 Interpretive Statements Sinus rhythm RBBB and LAFB Electronically Signed On 09-13-2024 20:40:50 PDT by Piter Peacock Please click the below link to view image of tracing.
[2024-09-10] MEDS: PIPERACILLIN-TAZOB 3.375GM 100 ML IV ONE (19:00)
[2024-09-10] MEDS ORDERED: DEXTROSE (50%) 50ML SYRG IV PRN (19:00)
[2024-09-10] MEDS ORDERED: VANCOMYCIN PER PHARMACY 0 MG IV SCH (19:00)
[2024-09-10] MEDS ORDERED: NITROGLYCERIN 0.4 MG SL TAB SL PRN (19:00)
[2024-09-10] MEDS: VANCOMYCIN 1GM/200ML PM 250 ML IV ONE ×2 (19:30→20:41)
[2024-09-10] MEDS: VANCOMYCIN HCL 1000 MG VL ONE ×2 (20:41→22:17)
--- NOTE | 2024-09-10 21:50 | DVHOP ---
DATE OF SURGERY: 09/10/2024 TECHNIQUE PERFORMED: * Emergency case. * Management of conscious sedation. * Fluoroscopic guidance and supervision. * Fluoroscopic guided insertion of a 6-[place] Islander arterial line from the right femoral artery. * Left heart catheterization. * Left ventriculogram. * [place] selective left and right coronary angiography. * Ascending aortogram. * Selective venous bypass graft angiography x3. * Venous bypass graft angiography to right coronary artery -- posterior descending artery. * Left subclavian vein angiography. * Left internal mammary artery angiography and right iliofemoral artery angiography, arteriotomy and Angio-Seal of the right coronary artery. * Right femoral venous central line placement. * Insertion of transcutaneous transvenous temporary pacemaker wire from right femoral vein to the right ventricle. COMPLICATIONS: None. ASSISTANTS: Assisted by Akil Garcia. Other assistants are Faith Jimenez Adriana. INDICATIONS: The patient to have an acute myocardial infarction, troponin 25,000. DESCRIPTION OF PROCEDURE: The patient have complete heart block, heart rate dropping down to 20. The patient was put on dopamine drip and dobutamine drip. Inotropic support was given. Atropine IV was given, stabilized, brought to labor specialist. Family informed. Indication, risks and benefits discussed. Right femoral artery had been punctured. A 6-[place] Islander arterial line also had been placed in a standard manner. Under fluoroscopy and at the end of the procedure, we also put a right femoral venous line 6-[place] Islander. Initially, we put a JL4 catheter and the left coronary angio done. With the help of a JR4 catheter, able to do the bypass graft angiography to posterior descending artery. With the help of similar catheter, went into the left subclavian, left subclavian angiography was done. Internal mammary angiography was done and we have put AL1 catheter. After putting the AL1 catheter, we noted that it did not go into any of the stump even, so now we did pigtail catheter. Complete left heart catheterization had been done. The left ventriculogram was done in the right anterior oblique view, total of 15 mL dye. Post-LV gram, left ventricular angiography had been performed with the help of pull-through technique. Aortic pressure was also performed. Procedure completed. Right iliofemoral artery angiography was done. CONCLUSION: * There is a left main which is 90% plus blocked in the mid region. * Left anterior descending artery 100% blocked in the mid region. * The patient's circumflex artery has an ostial stenosis in the range of 80%. The obtuse marginal artery completely blocked down. * The right coronary artery completely blocked down. descending artery is open. * The posterolateral branch arising from distal region of the right coronary artery has 90% narrowed, but ISHMAEL grade III flow has been noted. * The patient's left internal mammary artery graft to left anterior descending artery is widely open. * The bypass graft to obtuse marginal artery had been 100% blocked down. * The left ventricular ejection fraction is in the range of 15%, dilated left ventricle, severe global hypokinesis. PLAN OF ACTION: At this time, the patient needs a permanent pacemaker. He is not a candidate for any coronary intervention at this time and I think we were able to secure his electricity and we are going to put a permanent pacemaker wire, which I discussed with almost more than 10 family members waiting in lobby. He understands very well and I with the risks and benefits. Reid Galo MD MP/FAREED/ROBERT/MAUREEN TID: [id number] RECEIPT: [id number] MTDD
[2024-09-10] MEDS ORDERED: ATROPINE SULF 1 MG/10ml SYR IM ONE (22:44)
[2024-09-10 23:15] VITALS: BP 108/49; PULSE 62; RESP 16; O2SAT 98
--- NOTE | 2024-09-10 23:20 | DVH ---
CHEST RADIOGRAPH Indication: S/P PACEMAKER Technique: Single frontal view of the chest was obtained COMPARISON: XY CHEST XRAY 1 VIEW on DOS: 09/10/24, XY CHEST PORTABLE on DOS: 09/10/24, XY CHEST PORTABLE on DOS: 09/10/24 FINDINGS: Lines and Tubes: Interval insertion of dual-lead pacemaker overlying left chest wall with leads proj ecting over right atrium and ventricle. ETT in satisfactory position. Lungs: Clear Pleura: No effusion.No pneumothorax. Cardiomediastinal contours: Unremarkable Bones: Sternotomy. IMPRESSION: No acute abnormality demonstrated.
--- NOTE | 2024-09-10 23:28 | DVHOP ---
DATE OF SURGERY: 09/10/2024 TECHNIQUE PERFORMED: * Emergency case. * Left subclavian venography. * Ultrasound of the left subclavian vein. * Implantation of a dual chamber permanent pacemaker from the left subclavian region ([employer]tr[employer] device MRI proof). * Fluoroscopic guidance and supervision and management of conscious sedation, interrogation of the device. COMPLICATIONS: None. ASSISTANTS: Assisted by Kei Tanner Janice, and Kristen. The procedure done at approximately after 8:00 p.m. on 09/10/2024. INDICATIONS: The patient has complete heart block, heart rate dropping down to 20, patient was put on dopamine drip and also the Levophed drip and the patient was given doses of atropine and also temporary pacemaker wire was also placed. 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 Left chest was thoroughly cleaned with soap and Betadine and lidocaine was given. Ultrasound was done. Left subclavian venography was done under aseptic precaution under local anesthesia, the left subclavicular line was obtained. Wire was passed, needle was removed. Incision was made 2 inches horizontally. Subsequently, now we have put a 9-Turkmen venous sheath, difficult to get in, so we put a Cook dilator. Subsequently, we changed to Amplatz wire. Subsequently, we were able to get a 9-Turk[place] venous sheath. Dilator was removed and subsequently now we tried to put a ventricular lead. Ventricular lead was difficult to get in there, so now we put to the 9-Turkmen long venous sheath. Subsequently, the ventricular lead was put into the ventricle, screwed in very well at the lower portion of the interventricular septum. Sensing and capturing very well. Subsequently, we put a 7-Turkmen long venous sheath and the patient's atrial lead was passed, adjusted in a standard manner, screwed in very well. Both atrial and ventricular leads functioning very well. Both have been individually sutured with the help of the Ethibond and subsequently now we also put a pulse generator, screwed in very well, and put under the subpectoralis groove. The whole area was thoroughly cleaned with antibiotic solution, antibiotic vancomycin powder applied. Antibiotic sleeve was applied. Subsequently, with the help of 2-0 Vicryl followed by 3-0, the whole wound had been very well sutured for 2 times with the same suture. Subsequently, we also put a staple was applied. Tincture of benzoin, Steri-Strip, Telfa, Op-Site applied. Procedure went well without any complication. Levophed and dopamine have been turned off. We have following a report available at this time the patient's right atrial P-wave is 1.9, pacing impedance 589, threshold is 1.2 volt at 0.4 milliseconds. The R-wave is 6.3, impedance 608, the patient's threshold is 1.25 at 0.4 millisecond. Procedure went well. 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 Reid Galo MD MP/LUCÍA TID: [id number] RECEIPT: [id number]
[2024-09-10 23:30] VITALS: BP 109/42; PULSE 61; PULSE 80; RESP 16; RESP 20; TEMP 99.9; O2SAT 100; O2SAT 99
[2024-09-10 23:45] VITALS: BP 105/52; PULSE 60; RESP 17; TEMP 99.5; O2SAT 100
[2024-09-10] MEDS: MIDAZOLAM DRIP 50 mg/50mL 50 ML IV SCH (23:48)
--- NOTE | 2024-09-10 23:50 | DVH ---
CHEST RADIOGRAPH Indication: s/p permanent pacemaker r/o pneumothorx Technique: Single frontal view of the chest was obtained Comparison: XY CHEST PORTABLE on DOS: 09/10/24, XY CHEST XRAY 1 VIEW on DOS: 09/10/24, XY CHEST PORTABLE on DOS: 09/10/24 FINDINGS: Patient has a bipolar pacemaker with leads in standard positions. Heart size remains within normal limits there is prominent interstitium and prominent pulmonary vasculature endotracheal tube is just below the clavicles level of the aortic arch. Patient has had open thoracotomy.. There is a l eft pacer pads over the left lung base IMPRESSION: Mild pulmonary vascular congestion endotracheal tube is level of the aortic arch 1.
--- NOTE | 2024-09-10 23:55 | DVHINCON2 ---
Date Seen: Sep 10, 2024 Referring Physician MD Debby Reason for Consultation NSTEMI History of Present Illness This is a 73-year-old male with a significant medical history of coronary artery disease status post quadruple vessel coronary artery bypass graft in 2020 at [facility], hypertension, dyslipidemia, diabetes mellitus type 2, GERD, and chronic back pain who presented to the ED by EMS with complaints of di zziness. At time of assessment, the patient was endotracheally intubated, on single vasopressor, and chemically sedated. Information was obtained from medical staff and who stated the patient has deteriorated including multiple events of dizziness, lightheadedness, chest pain, intermittent confusion, fall injuries, and seizure-like activity for the past week. States the patient was clenching over his chest and holding over his throat and jaw area which prompted her to call EMS. Prior to endotracheal intubation the patient displayed a sinus rhythm with intermittent bradycardia and sinus pauses for approximately 6 sec at a time for which the patient was initiated on an Epinephrine and Dopamine drip and a bedside temporary transvenous pacer placed by ED physician. He underwent multiple twelve lead electrocardiograms revealing a sinus rhythm with an associated right bundle branch block, left anterior fascicular block, and diffuse non-specific ST segment changes. Troponin levels were found >25,000 ng/L. Blood glucose level at 540 mg/dL. Code STEMI was called. Patient will be going for urgent cardiac catheterization and coronary angiogram. Past Medical History Past medical history reviewed. No other significant than mentioned above. Past Surgical History Past medical history reviewed. No other significant than mentioned above. Allergies: Uncoded Allergies: TYPHOID (Allergy, Unknown, 09/10/24) Home Meds Reported Medications Venlafaxine Hcl (Venlafaxine Hcl Er) 75 Mg Tab 05/31/12 Tramadol Hcl (Rybix Odt) 50 Mg Tab 05/31/12 Temazepam (Restoril) 30 Mg Cap 05/31/12 Simvastatin (Simvastatin) 40 Mg Tab 05/31/12 Naproxen (Naproxen Dr) 500 Mg Tab 05/31/12 Metoprolol Tartrate (Metoprolol Tartrate) 25 Mg Tab 05/31/12 Methocarbamol (Methocarbamol) 750 Mg Tab 05/31/12 Lisinopril (Lisinopril) 5 Mg Tab 05/31/12 Lamotrigine (Lamictal Odt) 200 Mg Tab 05/31/12 Gabapentin (Gabapentin) 100 Mg Cap 05/31/12 Docusate Sodium (Colace) 100 Mg Cap 05/31/12 Clonazepam (Clonazepam Orally Disinte) 0.5 Mg Tab 05/31/12 Amitriptyline Hcl (Elavil) 25 Mg Tb 05/31/12 Current Medications Current Medications Medications (Trade) Dose Ordered Sig/Mervat Route PRN Reason Start Time Stop Time Status Last Admin Epinephrine HCl 250 ml @ 7.5 mls/hr Q24H IV 09/10/24 17:00 09/10/24 16:54 Norepinephrine Bitartrate 250 ml @ 3.75 mls/hr Q24H IV 09/10/24 17:00 09/10/24 16:55 Phenylephrine HCl 250 ml @ 30 mls/hr Q8H20M IV 09/10/24 17:15 Fentanyl Citrate 250 ml @ 2.5 mls/hr Q24H IV 09/10/24 19:00 09/10/24 16:36 Nitroglycerin (Ntrostat Sublingual) 0.4 mg Q5MINP PRN SL FOR CHEST PAIN 09/10/24 19:00 Diagnostic Test (Pha) (Accu-Chek Comfort Curve T) 1 strip Q1HR 09/10/24 19:00 Insulin Human Regular (InsuLIN R) Q6HR SC 09/11/24 00:00 Dextrose 50 ml UD PRN IV Blood Sugar LESS THAN 60 09/10/24 19:00 Midazolam HCl 50 ml @ 1 mls/hr Q24H IV 09/10/24 19:00 Vancomycin HCl 0 ml @ 0 mls/hr UD IV 09/10/24 19:00 Piperacillin Sod/ Tazobactam Sod 100 ml @ 25 mls/hr Q8H IV 09/11/24 03:00 Review of Systems Constitutional: No symptom reported Ears, Nose, & Throat: No symptom reported Eyes: No symptom reported Neurological: Dizziness, confusion Pulmonary/Respiratory: No symptom reported Cardiovascular: Chest pain Gastrointestinal: No symptom reported Genitourinary: No symptom reported Musculoskeletal: No symptom reported Skin: No symptom reported Psychiatric: No symptom reported Endocrine: No symptom reported Hemotologic/Lymphatic: No symptom reported Vital Signs Vital Signs Date Time Temp Pulse Resp B/P (MAP) Pulse Ox O2 Delivery O2 Flow Rate FiO2 09/10/24 18:15 53 16 120/70 (87) 100 09/10/24 16:40 100 09/10/24 15:10 97.8 97.8 09/10/24 15:10 Room Air* 0 Physical Exam GENERAL: Ill appearing, intubated on ventilator. EYES: PERRL, EOMI. Anicteric. HENT: Moist mucous membranes. LUNGS: Clear to auscultation bilaterally. CARDIOVASCULAR: Regular rate and rhythm. ABDOMEN: Soft, non-tender and non-distended. EXTREMITIES: No edema. NEUROLOGIC: Chemically sedated. SKIN: Warm, dry. Labs/Diagnostic Data Labs Test 09/10/24 18:08 09/10/24 15:47 09/10/24 15:32 09/10/24 11:53 Range/Units Blood Gas Specimen Type Arterial Blood Gas Sample Site Left radial Blood Gas Patient Temperature 37.0 Arterial Blood Date Drawn [id number] Arterial Blood pH 7.275 L 7.350-7.450 Arterial Blood Partial Pressure CO2 32.7 L 35.0-48.0 mmHg Arterial Blood Partial Pressure O2 183.9 H 83.0-108.0 mmHg Arterial Blood HCO3 14.8 L 21.0-28.0 mmol/L Arterial Blood Oxygen Saturation 98.8 H 94.0-98.0 % Arterial Blood Base Excess -10.8 L -2.0-3.0 mmol/L Arterial Blood Oxyhemoglobin 98.2 H 94.0-98.0 % Arterial Blood Carboxyhemoglobin 0.3 L 0.5-1.5 % Arterial Blood Methemoglobin 0.3 0.0-1.5 % Bruno Test Modified Blood Gas Total Hemoglobin 12.90 L 13.5-17.5 g/dL Blood Gas Set Respiration Rate 16.0 Blood Gas Modality Vent - ac FiO2 % 60.0 Blood Gas Tidal Volume 500.0 Blood Gas PEEP or CPAP 5.0 Urine Color Yellow Yellow Urine Clarity Clear Clear Urine pH 5.0 5.0-9.0 Urine Specific [place] 1.019 1.001-1.035 Urine Protein Negative Negative Urine Ketones 1+ H Negative Urine Blood Negative Negative /uL Urine Nitrite Negative Negative Urine Bilirubin Negative Negative Urine Urobilinogen Normal Negative mg/dL Urine Leukocyte Esterase Negative Negative /uL Urine RBC 1 0 - 3 /hpf Urine Microscopic WBC 2 0-3 /HPF Urine Squamous Epithelial Cells Few <5 /hpf Urine Bacteria None seen None Seen /hpf Urine Hyaline Casts Many 0 - 2 /lpf Urine Mucus Few None Seen Urine Glucose 4+ H Normal mg/dL White Blood Count 9.7 4.4-10.8 10^3/uL Red Blood Count 3.97 L 4.5-5.90 10^6/uL Hemoglobin 12.6 L 13.5-17.5 g/dL Hematocrit 37.8 L 41.0-53.0 % Mean Corpuscular Volume 95.3 80.0-100.0 fL Mean Corpuscular Hemoglobin 31.7 28.0-32.0 pg Mean Corpuscular Hemoglobin Concent 33.2 32.0-36.0 g/dL Red Cell Distribution Width 14.4 H 11.8-14.3 % Platelet Count 79 L 140-450 10^3/uL Mean Platelet Volume 10.2 6.9-10.8 fL Neutrophils (%) (Auto) 85.4 H 37.0-80.0 % Lymphocytes (%) (Auto) 7.4 L 10.0-50.0 % Monocytes (%) (Auto) 7.2 0.0-12.0 % Eosinophils (%) (Auto) 0.0 0.0-7.0 % Basophils (%) (Auto) 0.0 0.0-2.0 % Neutrophils # (Auto) 8.2 1.6-8.6 10 ^3/uL Lymphocytes # (Auto) 0.7 0.4-5.4 10 ^3/uL Monocytes # (Auto) 0.7 0-1.3 10 ^3/uL Eosinophils # (Auto) 0 0-0.8 10 ^3/uL Basophils # (Auto) 0 0-0.2 10 ^3/uL Nucleated Red Blood Cells 0.1 % Platelet Estimate Decreased Red Blood Cell Morphology Normal Prothrombin Time 14.6 H 9.3-11.8 sec Prothrombin Time INR 1.43 H 0.9-1.15 Activated Partial Thromboplast Time 27.9 24.5-34.5 SEC Sodium Level 132 L 136-145 mmol/L Potassium Level 4.9 3.5-5.1 mmol/L Chloride Level 97 L 98-107 mmol/L Carbon Dioxide Level 19 L 20-31 mmol/L Anion Gap 16 H 5-15 Blood Urea Nitrogen 75 H 9-23 mg/dL Creatinine 2.25 H 0.700-1.30 mg/dL Glomerular Filtration Rate Calc 30 >90 mL/min BUN/Creatinine Ratio 33.3 H 10.0-20.0 Serum Glucose 540 *H 74-106 mg/dL Lactic Acid Level 8.7 *H 0.4-2.0 mmol/L Calcium Level 8.7 8.7-10.4 mg/dL Magnesium Level 2.6 1.6-2.6 mg/dL Total Bilirubin 2.2 H 0.2-1.0 mg/dL Aspartate Amino Transferase (AST) 865 H 13-40 U/L Alanine Aminotransferase (ALT) 805 H 7-40 U/L Alkaline Phosphatase 79 46-116 U/L Ammonia < 10 L 11-32 umol/L Troponin I High Sensitivity > 42123 *H </=54 ng/L Total Protein 6.0 5.7-8.2 g/dL Albumin 3.9 3.2-4.8 g/dL Triglycerides Level 92 < 150 mg/dL Cholesterol Level 87 < 200 mg/dL LDL Cholesterol 34 < 100 mg/dL HDL Cholesterol 35 L 40-59 mg/dL Beta-Hydroxybutyric Acid 0.325 < 0.4 mmol/L Thyroid Stimulating Hormone (TSH) 4.76 0.55-4.78 uIU/mL Hemoglobin A1c 7.8 H <5.7 % A1C Assessment High-risk non ST-elevation myocardial infarction. Sick sinus syndrome with severe bradycardia and sinus pauses s/p TV pacer. Rule out progressive coronary artery disease. Rule out structural heart disease. Coronary artery disease status post quadruple CABG, 2020. Diabetes mellitus with diabetic ketoacidosis. HX of hypertension. Dyslipidemia. Thrombocytopenia. Likely AVA on CKD. Plan/Recommendation I agree with your ongoing assessment and care of plan. Patient has been seen by Trice Boyer NP on my behalf. We have discussed the plan with the patient. I discussed the case with Dr. Guardado. Patient deemed to be a high risk NSTEMI for which he has been scheduled for an urgent cardiac catheterization and coronary angiogram at first available. All risks and benefits of the procedure were discussed with at bedside who agrees to proceed with intervention. Anticoagulation therapy held at this time given thrombocytopenia. We will obtain a transthoracic echocardiogram to evaluate cardiac function. In the meantime, continue vasopressors for hemodynamic support. Transvenous pacemaker set for a HR of 70 bpm. Obtain nephrology consult given likely AVA with high risk for KEVIN. Additional plan as per the hospital course. Plan discussed with: Other NYHA Physical activity limitations: NA Date of Service: Sep 10, 2024 Billing Provider: AVELINO GREWAL MD Cardiology Common Codes: [id number] INP/OBS CARE (High), [id number] CARE 30-74 MIN AVELINO GREWAL MD Sep 10, 2024 23:55
[2024-09-11] VITALS (109 sets, daily range): BP systolic 80–173; BP diastolic 20–86; PULSE 60–105; RESP 13–22; TEMP 94.3–100.9; O2SAT 98–100
[2024-09-11] MEDS: ACCU-CHEK COMFORT CURVE STRIP VI SCH ×3 (00:17→12:21)
[2024-09-11] MEDS: InsuLIN REG 1unit/0.01ml Soln (100units/ml) SC SCH ×3 (00:26→12:23)
[2024-09-11] MEDS ORDERED: DEXTROSE (50%) 50ML SYRG IV PRN ×2 (00:45→10:00)
[2024-09-11] MEDS: INSULIN LANTUS (GLARGINE) 1 /0.01ml (100units/ml) SC ONE (01:03)
[2024-09-11] MEDS: FUROSEMIDE 20 MG/2 ML VIAL IV ONE (02:12)
[2024-09-11] MEDS: PIPERACILLIN-TAZOB 3.375GM 100 ML IV SCH (03:00)
[2024-09-11 03:55] LABS: Basophils # (auto) 0 10 ^3/uL (0-0.2); Basophils % (auto) 0.1 % (0.0-2.0); Eosinophils # (auto) 0 10 ^3/uL (0-0.8); Hematocrit 33.9 % (41.0-53.0); Hemoglobin 11.7 g/dL (13.5-17.5); Lymphocytes # (auto) 0.8 10 ^3/uL (0.4-5.4); Lymphocytes % (auto) 7.1 % (10.0-50.0); Mean Corpuscular Hemoglobin 32.6 pg (28.0-32.0); Mean Corpuscular Hgb Conc. 34.6 g/dL (32.0-36.0); Mean Corpuscular Volume 94.1 fL (80.0-100.0); Monocytes # (auto) 0.7 10 ^3/uL (0-1.3); Monocytes % (auto) 6.3 % (0.0-12.0); Neutrophils # (auto) 9.4 10 ^3/uL (1.6-8.6); Neutrophils % (auto) 86.5 % (37.0-80.0); Nucleated Red Blood Cells % 0.5 %; Platelet Count (auto) 70 10^3/uL (140-450); White Blood Cell 10.8 10^3/uL (4.4-10.8)
[2024-09-11 04:07] LABS: Chloride 100 mmol/L (98-107); Potassium 4.1 mmol/L (3.5-5.1)
[2024-09-11 04:08] LABS: Anion Gap 12 (5-15); Calcium 8.1 mg/dL (8.7-10.4); Carbon Dioxide 22 mmol/L (20-31); Sodium 134 mmol/L (136-145)
[2024-09-11 04:16] LABS: BUN/Creatinine Ratio 38.8 (10.0-20.0); Blood Urea Nitrogen 78 mg/dL (9-23)
[2024-09-11 04:18] LABS: Glucose 497 mg/dL (74-106)
[2024-09-11 04:24] LABS: Lactic Acid w/Reflex 3.7 mmol/L (0.4-2.0)
[2024-09-11] MEDS ORDERED: FUROSEMIDE 40 MG/4 ML VIAL IV SCH (06:00)
[2024-09-11] MEDS: FUROSEMIDE 20 MG/2 ML VIAL IV SCH (06:09)
[2024-09-11 07:27] LABS: Base Excess -5.5 mmol/L (-2.0-3.0)
[2024-09-11] MEDS ORDERED: cefTRIAXone 1GM/50ML D5W 50 ML IV SCH (09:00)
--- NOTE | 2024-09-11 10:11 | DVHPN2 ---
Consult Progress Note Date Seen: Sep 11, 2024 Subjective Other Systems: No overnight cardiac events. Reported weak pedal pulses Objective vital signs Vital Sign Date Time Temp Pulse Resp B/P (MAP) Pulse Ox O2 Delivery O2 Flow Rate FiO2 09/11/24 09:15 96.6 80 17 121/37 (65) 100 205.9 09/11/24 08:00 Mechanical Ventilator+ 30 30 09/10/24 15:10 0 Total Intake and Output 09/10/24 09/10/24 09/11/24 15:00 23:00 07:00 Intake Total 1000 ml 158.0 ml Output Total 700 ml Balance 1000 ml -542.0 ml medications Current Medications Medications Dose Ordered Sig/Mervat Route Start Time Stop Time Status Last Admin Dose Admin Epinephrine HCl 250 ml @ 7.5 mls/hr Q24H IV 09/10/24 17:00 09/10/24 16:54 11.25 MLS/HR Norepinephrine Bitartrate 250 ml @ 3.75 mls/hr Q24H IV 09/10/24 17:00 09/11/24 02:34 3.75 MLS/HR Phenylephrine HCl 250 ml @ 30 mls/hr Q8H20M IV 09/10/24 17:15 Fentanyl Citrate 250 ml @ 2.5 mls/hr Q24H IV 09/10/24 19:00 09/10/24 16:36 2.5 MLS/HR Nitroglycerin 0.4 mg Q5MINP PRN SL 09/10/24 19:00 Midazolam HCl 50 ml @ 1 mls/hr Q24H IV 09/10/24 19:00 09/10/24 23:48 6 MLS/HR Vancomycin HCl 0 ml @ 0 mls/hr UD IV 09/10/24 19:00 Piperacillin Sod/ Tazobactam Sod 100 ml @ 25 mls/hr Q8H IV 09/11/24 03:00 09/11/24 03:00 25 MLS/HR Insulin Glargine 25 units HS SC 09/11/24 22:00 Diagnostic Test (Pha) 1 strip IQ4HR 09/11/24 04:00 09/11/24 07:39 1 STRIP Insulin Human Regular IQ4HR SC 09/11/24 04:00 09/11/24 07:45 10 UNITS Dextrose 50 ml UD PRN IV 09/11/24 00:45 Ceftriaxone Sodium 50 ml @ 100 mls/hr DAILY@09 IV 09/11/24 09:00 Hold Furosemide 20 mg TID IV 09/11/24 06:00 09/11/24 06:09 20 MG Examination: GENERAL:Abnormal, LUNGS:Abnormal (Endotracheally intubated 30% FiO2), CVS:Abnormal (Paced rhythm. On single-vasopressor), MSK:Abnormal (RUE swelling), NEURO:Abnormal (Chemically sedated) laboratory and microbiology Laboratory Tests 09/11/24 03:15 Test 09/11/24 03:15 Range/Units Serum Glucose 497 *H 74-106 mg/dL Problem List/Assessment/Plan Problem List/Assessment/Plan High-risk non ST-elevation myocardial infarction with progressive coronary artery disease Sick sinus syndrome with severe bradycardia and sinus pauses s/p TV pacemaker s/p permanent dual-chamber pacemaker Coronary artery disease status post quadruple CABG, 2020 Diabetes mellitus with diabetic ketoacidosis Rule out structural heart disease HX of hypertension Dyslipidemia Thrombocytopenia Elevated LFTs Likely AVA on CKD Plan/Recommendation (Dr. Galo) Continue with transthoracic echocardiogram to evaluate cardiac function, preliminary LVEF 10-15% by visual estimate. Obtain a bilateral lower extremity arterial duplex given reported diminished pedal pulses. Obtain a RUE venous US rule out DVT. Continue vasopressor for hemodynamic support. Preload reduction as tolerated. DVT/VTE prophylaxis: SCDs. Hold antiplatelet/anticoagulation given thrombocytopenia. The patient may be a candidate for a pacemaker upgrade to ICD given decreased LV function. Continue Nephrology recommendations. Rest of plan per clinical course. Thank you for allowing us to participate in this patient's care. Please call if you have any questions or concerns. Critical care time: 35 min. This medical document was created using an electronic medical record system with voice recognition software and computerized dictation system. Although this document has been carefully reviewed, there might still be some phonetic and typographical errors. Occasional wrong-word or ``sound-alike substitutions may have occurred due to the inherent limitations of voice recognition software. These areas are purely typographical due to imperfections of the software programs and do not reflect any compromise in the patient's medical care. Please read the chart carefully and recognize, using context, where these substitutions have occurred. Plan discussed with: Other Date of Service: Sep 11, 2024 Billing Provider: GAYATHRI DOWNING Cardiology Common Codes: [id number] INP/OBS CARE (High) GAYATHRI DOWNING Sep 11, 2024 10:11
[2024-09-11] MEDS: PANTOPRAZOLE 40 MG/10 ML VIAL INJ IV ONE (10:15)
[2024-09-11 10:42] LABS: Magnesium 2.9 mg/dL (1.6-2.6)
[2024-09-11] MEDS: INSULIN LANTUS (GLARGINE) 1 /0.01ml (100units/ml) SC SCH (11:02)
--- NOTE | 2024-09-11 11:38 | DVHPNRES ---
Progress Note Date Seen: Sep 11, 2024 Resident Creating Document: ISAIAH CARIAS RESIDENT Medical Necessity Reason Pt with a Central, PICC or Fol: Yes The following are medically ne: Central Line, Aguayo Catheter Subjective Review of Systems This is a 73-year-old male who was brought into the ED with chief complain of chest pain, dizziness, lightheadedness, vomiting, mumbling speech. Past Medical History: Diabetes, hyperlipidemia, hypertension, CABG- quad vessel. Past Surgical History: Appendectomy and CABG, vocal cord surgery one month ago Past Social History: Quit smoking 22 years ago, was a heavy smoker for 15 years. She also quit drinking 22 year, unknown alcohol intake. Denied illicit drug use. Lives at home with the spouse. Home medications: Amitriptyline, clonazepam, docusate, gabapentin, lamotrigine, lisinopril 5 mg, methocarbamol, metoprolol 25 mg, naproxen 500 mg, simvastatin 40 mg, temazepam, tramadol, venlafaxine Patient was initially brought in by ambulance, history was gathered per . She stated that the patient has been experiencing lightheadedness, dizziness, nausea, vomiting for the last 3-4 days. She also stated that she has been falling frequently for the last couple of months. She also stated that he has been experiencing chest pain since he had the CABG procedure in 2020. However in the last couple of days this chest pain became unbearable. Z that the patient was also experiencing coughing, having chills. When she brought her to the hospital she noticed that his speech was mumbling. stated that the patient has a start any new medications in the last 4-6 weeks and denied any sick contacts in the last month. However the patient was indeed sick with the influenza a couple of weeks ago. stated that the patient has a bright red blood in the stools. In the ER patient was found to be bradycardic, hypotensive, he was also altered, they had to intubate him due to airway protection and they also started him on vasopressors, dopamine. Patient was having sinus rhythm with intermittent bradycardia episodes which will lead to sinus pauses up to 6 seconds. A transvenous pacer was also placed.Patient was taken to the laboratory animal facility supervisor, angiogram was done, diffuse vessel disease was appreciated, no stents placed. Permanent pacemaker was placed. Objective vital signs Vital Sign Date Time Temp Pulse Resp B/P (MAP) Pulse Ox O2 Delivery O2 Flow Rate FiO2 09/11/24 10:01 81 16 121/38 (65) 100 30 09/11/24 09:15 96.6 205.9 09/11/24 08:00 Mechanical Ventilator+ 09/10/24 15:10 0 Total Intake and Output 09/10/24 09/10/24 09/11/24 15:00 23:00 07:00 Intake Total 1000 ml 158.0 ml Output Total 700 ml Balance 1000 ml -542.0 ml medications Current Medications Medications Dose Ordered Sig/Mervat Route Start Time Stop Time Status Last Admin Dose Admin Norepinephrine Bitartrate 250 ml @ 3.75 mls/hr Q24H IV 09/10/24 17:00 09/11/24 02:34 3.75 MLS/HR Fentanyl Citrate 250 ml @ 2.5 mls/hr Q24H IV 09/10/24 19:00 09/10/24 16:36 2.5 MLS/HR Nitroglycerin 0.4 mg Q5MINP PRN SL 09/10/24 19:00 Midazolam HCl 50 ml @ 1 mls/hr Q24H IV 09/10/24 19:00 09/10/24 23:48 6 MLS/HR Vancomycin HCl 0 ml @ 0 mls/hr UD IV 09/10/24 19:00 Insulin Glargine 25 units HS SC 09/11/24 22:00 Furosemide 20 mg TID IV 09/11/24 06:00 09/11/24 06:09 20 MG Insulin Glargine 14 units DAILY@1000 SC 09/11/24 10:00 09/11/24 11:02 14 UNITS Diagnostic Test (Pha) 1 strip Q6HR 09/11/24 12:00 Insulin Human Regular Q6HR SC 09/11/24 12:00 Dextrose 50 ml UD PRN IV 09/11/24 10:15 Cefepime HCl 50 ml @ 12.5 mls/hr Q12HR IV 09/11/24 22:00 UNV Pantoprazole Sodium 40 mg DAILY IV 09/12/24 10:00 Examination Physical examination as below: General: Mechanically ventilated, intubated HEENT: Head is normocephalic and atraumatic. Pupils are sluggish Neck: Supple with no cervical lymphadenopathy. Heart: Regular rate without murmur, rub, or gallop. Surgical side due to pacemaker placement on left side, no signs of infections Lungs: Mild diffuse crackles Abdomen: No external sign of injury. Bowel sounds are present. Abdomen is soft, nontender. Extremities: Faint peripheral pulses. There is no clubbing, no cyanosis, and no edema. Skin: No rash. Neurologic: Sedated laboratory and microbiology Laboratory Tests 09/11/24 03:15 Test 09/11/24 03:15 Range/Units Serum Glucose 497 *H 74-106 mg/dL Labs and/or images reviewed: Labs reviewed by me, Image(s) reviewed by me Problem List/Assessment/Plan Problem List/Assessment/Plan Neurology #Metabolic encephalopathy Head CT unremarkable Cardiovascular #Acute on chronic systolic CHF #Cardiogenic shock #Sick sinus syndrome status post permanent pacemaker placement, [employer] #CAD, status post CABG #Ischemic cardiomyopathy #History of hypertension #NSTEMI type 1 #Dyslipidemia #Possible PAD #Superficial venous thrombosis on right cephalic vein Lasix 20 mg IV t.i.d. Gave an extra dose of 40mg iv once Pending echo Arterial duplex ultrasound ordered, pending Pulmonology #Acute hypoxic respiratory failure, on mechanical ventilator #Pneumonia, Gram-positive versus Gram-negative, aspiration pneumonia Cefepime IV Vancomycin IV MV: FIO2: 30% TV: 500 RR: 16 PEEP: 5 Pending cultures Nephrology #AVA due to VMN, likely hemodynamically mediated IV fluids given Continue Lasix Endocrinology #Type 2 diabetes mellitus, uncontrolled SSI aggressive q.6 hours Lantus 14 units q.a.m. Gastroenterology #Transaminitis, likely liver shock Monitor H/o GERD Protonix IV Start tube feedings: Nepro Hematology and Oncology #Anemia normocytic normochromic #Thrombocytopenia, moderate Monitor Infectious Disease #Septic shock #Lactic acidosis #Pneumonia, Gram-positive versus Gram-negative, aspiration pneumonia Pending pancultures On cefepime and vancomycin Dermatology x Psychiatry History of depression DVT ppx Held Lovenox due to thrombocytopenia PUD ppx Protonix Drips Levophed Fentanyl Versed Lines Right femoral line, 09/10/24, placed Right IJ TLC on 09/11/24 ET tube, 09/10/24 Aguayo, 09/10/24 Updated patient's family member on current status Goals of care were discussed for over 30 minutes. FULL CODE. Critical care time spent outside of procedures: 91 mins Case was discussed with Dr. Aparicio Plan discussed with: Spouse, Other (RN) My Orders My Orders Orders - ISAIAH CARIAS RESIDENT Procedure Category Date Status Time Insulin Lantus PHA 09/11/24 In Process (Glargine) (Lantus) 10:00 Lactic Acid W/ Reflex LAB 09/11/24 Logged Order 09:48 Covid19 Antigen Arlet LAB 09/11/24 Logged Rapid Influenza A&B LAB 09/11/24 Logged 09:48 Glucose Blood PHA 09/11/24 In Process (Accu-Chek Comfort 12:00 Insulin R (Human) PHA 09/11/24 In Process (Insulin R) 12:00 Dextrose 50% Syringe PHA 09/11/24 In Process 10:15 Cefepime 1gm/ 50ml PHA 09/11/24 Logged (Maxipime 1gm/50ml) 22:00 Pantoprazole PHA 09/12/24 In Process (Protonix) 10:00 Iron Panel LAB 09/11/24 In Process 10:04 Ferritin LAB 09/11/24 In Process 10:04 Drug Screen LAB 09/11/24 Logged 10:04 Urine Bacterial LESLY 09/11/24 Logged Culture 10:04 Chest Portable XY 09/11/24 Taken 10:04 Acute Hepatitis Panel LAB 09/11/24 Logged 10:24 Hepatitis C Antibody LAB 09/11/24 Logged 10:24 Hepatic Panel LAB 09/11/24 In Process 10:24 Strict I & O TUNG 09/11/24 In Process 10:43 Stool Occult Blood LAB 09/11/24 Logged 10:53 LIVER US 09/11/24 Logged 10:53 Date of Service: Sep 11, 2024 Billing Provider: MARC APARICIO MD Common Visit Codes: [id number] CARE 30-74 MIN, [id number] CARE-EACH +30MIN ISAIAH CARIAS RESIDENT Sep 11, 2024 11:37 MARC APARICIO MD Sep 12, 2024 16:44
[2024-09-11 11:44] LABS: % Iron Saturation 34.9 % (20-55)
[2024-09-11 11:45] LABS: Albumin 3.5 g/dL (3.2-4.8); Total Protein 5.8 g/dL (5.7-8.2)
[2024-09-11 11:49] LABS: Bilirubin, Direct 1.1 mg/dL (<0.3); Bilirubin, Total 2.4 mg/dL (0.2-1.0)
--- NOTE | 2024-09-11 11:58 | DVH ---
EXAM: XY CHEST PORTABLE Indication: sob Technique: Single frontal view of the chest was obtained Comparison: XY CHEST XRAY 1 VIEW on DOS: 09/10/24, XY CHEST PORTABLE on DOS: 09/10/24, XY CHEST XRAY 1 EW on DOS: 09/10/24, XY CHEST PORTABLE on DOS: 09/10/24, XY CHEST PORTABLE on DOS: 09/10/24 FINDINGS: Lines and Tubes: Endotracheal tube projects 3.6 cm above the raffi. Cardiac pacemaker projects over left chest wall. Lungs: Pulmonary vascular congestion. Pleura: No effusion. No pneumothorax. Cardiomediastinal contours: Unremarkable Bones: No acute osseous abnormality. IMPRESSION: Pulmonary vascular congestion.
[2024-09-11] MEDS: CALCIUM ACETATE 667 MG CAP PO SCH (12:00)
[2024-09-11] MEDS ORDERED: ACCU-CHEK COMFORT CURVE STRIP VI SCH (12:00)
[2024-09-11] MEDS ORDERED: InsuLIN REG 1unit/0.01ml Soln (100units/ml) SC SCH (12:00)
--- NOTE | 2024-09-11 13:03 | DVH ---
INDICATION: transaminitis TECHNIQUE: Multiple real-time sonographic images were obtained of the right upper quadrant. COMPARISON: None FINDINGS: The liver demonstrates heterogeneous echotexture without focal mass lesions. The liver reza ures 15cm. There is no intrahepatic or extrahepatic ductal dilatation. The common duct measures 10 mm. The gallbladder is without evidence of stone or sludge. The gallbladder wall measures 0.2 mm and is within normal limits. The right kidney measures 9 cm. The right kidney is normal in contour, size, and shape. The echogeni city is normal. There is no hydronephrosis. The pancreas is not well visualized due to overlying bowel gas. IMPRESSION: No sonographic evidence of gallstones or acute cholecystitis. Hepatic steatosis
[2024-09-11] MEDS: VANCOMYCIN 500mg/100mL 100 ML IV ONE (13:16)
--- NOTE | 2024-09-11 13:34 | DVH ---
BILATERAL Lower Extremity Arterial Duplex Date: 09/11/2024 10:26 AM Clinical History: Weak pedal pulses r/o PAD Comparison: None Technique: Duplex Doppler evaluation including color Doppler and spectral/pulsed waveform analysis of the lower extremity arteries was performed. Finding: RIGHT: Peak systolic velocities are as follows: [employer] not visualized due to central. Deep femoral not visualized due to central line. SFA not visualized due to central line. SFA mid-portion 47 cm/s SFA distal 46 cm/s Popliteal 44 cm/s Posterior tibial 48 cm/s Dorsalis pedis 31 cm/s The waveforms are within normal limits. 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 REFERENCE VALUES, [facility]) vascular Imaging Lab Criteria: Peak systolic velocity ranges (in cm/sec) are as follows: <150 cm/s - <20 % stenosis 150-200 cm/s - 20-49% stenosis 200-300 cm/s - 50-75% stenosis >300 cm/s -> 75% stenosis There is atherosclerotic vascular disease of the bilateral lower extremities. IMPRESSION: Evaluation is limited as right common femoral artery, right deep femoral artery, right proximal super ficial femoral artery could not be evaluated due to central line. No obvious evidence of hemodynamica lly significant stenosis or occlusion in the right lower extremity. There is no evidence for peripheral vascular insufficiency in the left lower extremity. No significant focal stenosis is identified.
--- NOTE | 2024-09-11 13:34 | DVH ---
Upper Extremity Venous Duplex Clinical History: Swelling r/o DVT Comparison: None Technique: Duplex Doppler evaluation of the venous system of the RIGHT lower neck and upper extremity including color Doppler and spectral/pulsed waveform analysis was performed. Findings: The internal jugular vein demonstrates appropriate compressibility and waveform variability. The subclavian vein is patent on color Doppler evaluation without intraluminal thrombus and demonstra funmilayo waveform variability. The visualized portion of the brachiocephalic vein is patent on color Doppler evaluation without intr aluminal thrombus and demonstrates waveform variability. The axillary vein demonstrates appropriate compressibility and waveform variability. The brachial veins demonstrate appropriate compressibility and patency on Doppler evaluation. The basilic vein demonstrates appropriate compressibility and patency on Doppler evaluation. The cephalic vein is not compressible.. Impression: Thrombus in the right cephalic vein is visualized.
[2024-09-11 13:43] LABS: INR 1.66 (0.9-1.15); Partial Thromboplastin Time 32.5 SEC (24.5-34.5); Prothrombin Time 16.7 sec (9.3-11.8)
[2024-09-11 14:02] LABS: Lactic Acid w/Reflex 2.6 mmol/L (0.4-2.0)
[2024-09-11] MEDS: FUROSEMIDE 40 MG/4 ML VIAL IV ONE (15:02)
--- NOTE | 2024-09-11 15:21 | ECG ---
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
--- NOTE | 2024-09-11 15:45 | DVHCONRES ---
Date Seen: Sep 11, 2024 Resident Creating Document: PILAR ERICKSON RESIDENT Referring Physician Trice Boyer NP Reason for Consultation AVA on CKD s/p [facility] History of Present Illness 53-year-old male patient with known history of coronary artery disease status post CABG x4 in 2020, hypertension, type 2 diabetes, dyslipidemia, GERD who presented to the emergency department with a chief complaint of dizziness and intermittent episodes of confusion. History was obtained from the who reports the symptoms were progressively getting worse for the past week. Upon arrival to the emergency department the patient was hypotensive and bradycardic, experienced sinus pauses lasting 6 seconds for which the patient underwent a bedside transvenous pacemaker for presumed sick sinus syndrome. EKG showed sinus rhythm with RBBB and LAD FT and diffuse non ST changes. Troponins was critically elevated more [place] [id number] concerning for high risk NSTEMI . Blood glucose was also elevated >500 and lactic acidat 8.7 on admission now trending down to 2.6. Patient is currently in the ICU and remains intubated and sedated. Nephrology was consulted due to acute kidney injury, after the patient's evaluation we recommend continue IV fluids cautiously and continue monitoring renal function post angiogram closely. Monitor urine output, strict I&Os. Monitor for electrolytes especially potassium, magnesium and phosphorous Continue monitoring glucose levels, currently improving Patient presents hyperphosphatemia which is mild likely due to AVA, consider phosphate binder if phosphorus level continue raising up or if the patient develops hypercalcemia symptoms. Recheck ionized calcium phosphorus, magnesium daily. Continue monitoring LFTs and lactate daily. Past Medical History coronary artery disease status post CABG x4 in 2020, hypertension, type 2 diabetes, dyslipidemia, GERD Past Surgical History Sick sinus syndrome with severe bradycardia and sinus pauses s/p TV pacemaker s/p permanent dual-chamber pacemaker Coronary artery disease status post quadruple CABG, 2020 Allergies: Uncoded Allergies: TYPHOID (Allergy, Unknown, 09/10/24) Home Meds Reported Medications Venlafaxine Hcl (Venlafaxine Hcl Er) 75 Mg Tab 05/31/12 Tramadol Hcl (Rybix Odt) 50 Mg Tab 05/31/12 Temazepam (Restoril) 30 Mg Cap 05/31/12 Simvastatin (Simvastatin) 40 Mg Tab 05/31/12 Naproxen (Naproxen Dr) 500 Mg Tab 05/31/12 Metoprolol Tartrate (Metoprolol Tartrate) 25 Mg Tab 05/31/12 Methocarbamol (Methocarbamol) 750 Mg Tab 05/31/12 Lisinopril (Lisinopril) 5 Mg Tab 05/31/12 Lamotrigine (Lamictal Odt) 200 Mg Tab 05/31/12 Gabapentin (Gabapentin) 100 Mg Cap 05/31/12 Docusate Sodium (Colace) 100 Mg Cap 05/31/12 Clonazepam (Clonazepam Orally Disinte) 0.5 Mg Tab 05/31/12 Amitriptyline Hcl (Elavil) 25 Mg Tb 05/31/12 Current Medications Current Medications Medications (Trade) Dose Ordered Sig/Mervat Route PRN Reason Start Time Stop Time Status Last Admin Epinephrine HCl 250 ml @ 7.5 mls/hr Q24H IV 09/10/24 17:00 09/11/24 10:23 DC 09/10/24 16:54 Norepinephrine Bitartrate 250 ml @ 3.75 mls/hr Q24H IV 09/10/24 17:00 09/11/24 02:34 Phenylephrine HCl 250 ml @ 30 mls/hr Q8H20M IV 09/10/24 17:15 09/11/24 10:23 DC Fentanyl Citrate 250 ml @ 2.5 mls/hr Q24H IV 09/10/24 19:00 09/10/24 16:36 Nitroglycerin (Ntrostat Sublingual) 0.4 mg Q5MINP PRN SL FOR CHEST PAIN 09/10/24 19:00 Diagnostic Test (Pha) (Accu-Chek Comfort Curve T) 1 strip Q1HR 09/10/24 19:00 09/11/24 00:56 DC 09/11/24 00:17 Insulin Human Regular (InsuLIN R) Q6HR SC 09/11/24 00:00 09/11/24 00:56 DC 09/11/24 00:26 Dextrose 50 ml UD PRN IV Blood Sugar LESS THAN 60 09/10/24 19:00 09/11/24 00:57 DC Midazolam HCl 50 ml @ 1 mls/hr Q24H IV 09/10/24 19:00 09/10/24 23:48 Vancomycin HCl 0 ml @ 0 mls/hr UD IV 09/10/24 19:00 Piperacillin Sod/ Tazobactam Sod 100 ml @ 25 mls/hr Q8H IV 09/11/24 03:00 09/11/24 10:14 DC 09/11/24 03:00 Insulin Glargine (Lantus) 25 units HS SC 09/11/24 22:00 Diagnostic Test (Pha) (Accu-Chek Comfort Curve T) 1 strip IQ4HR 09/11/24 04:00 09/11/24 10:14 DC 09/11/24 07:39 Insulin Human Regular (InsuLIN R) IQ4HR SC 09/11/24 04:00 09/11/24 10:14 DC 09/11/24 07:45 Dextrose 50 ml UD PRN IV Blood Sugar LESS THAN 60 09/11/24 00:45 09/11/24 10:14 DC Ceftriaxone Sodium 50 ml @ 100 mls/hr DAILY@09 IV 09/11/24 09:00 09/11/24 10:14 DC Furosemide (Lasix Injection) 20 mg TID IV 09/11/24 06:00 09/11/24 02:10 DC Furosemide (Lasix Injection) 20 mg TID IV 09/11/24 06:00 09/11/24 13:42 Diagnostic Test (Pha) (Accu-Chek Comfort Curve T) 1 strip Q6HR 09/11/24 12:00 09/11/24 10:14 DC Insulin Human Regular (InsuLIN R) Q6HR SC 09/11/24 12:00 09/11/24 10:14 DC Dextrose 50 ml UD PRN IV Blood Sugar LESS THAN 60 09/11/24 10:00 09/11/24 10:14 DC Insulin Glargine (Lantus) 14 units DAILY@1000 SC 09/11/24 10:00 09/11/24 11:02 Diagnostic Test (Pha) (Accu-Chek Comfort Curve T) 1 strip Q6HR 09/11/24 12:00 09/11/24 12:21 Insulin Human Regular (InsuLIN R) Q6HR SC 09/11/24 12:00 09/11/24 12:23 Dextrose 50 ml UD PRN IV Blood Sugar LESS THAN 60 09/11/24 10:15 Cefepime HCl 50 ml @ 12.5 mls/hr Q12HR IV 09/11/24 22:00 Pantoprazole Sodium (Protonix) 40 mg DAILY IV 09/12/24 10:00 Calcium Acetate (Phoslo Capsule) 667 mg TIDWMEALS PO 09/11/24 12:00 Vital Signs Vital Signs Date Time Temp Pulse Resp B/P (MAP) Pulse Ox O2 Delivery O2 Flow Rate FiO2 09/11/24 14:22 88 16 105/35 (58) 100 30 09/11/24 14:15 100.0 212.0 09/11/24 14:00 Mechanical Ventilator+ 09/10/24 15:10 0 Physical Exam General: on mechanical ventilation, sedated and intubated HEENT: Pupils are sluggish Heart: Regular rate , paced rhythm without murmur, rub, or gallop. Lungs: Mild diffuse crackles Abdomen: No external sign of injury. Bowel sounds are present. Abdomen is soft, nontender. Extremities: Faint peripheral pulses. There is no clubbing, no cyanosis, and no edema. Neurologic: Sedated Labs/Diagnostic Data Labs Test 09/11/24 13:01 09/11/24 12:19 09/11/24 10:35 09/11/24 07:16 Range/Units Prothrombin Time 16.7 H 9.3-11.8 sec Prothrombin Time INR 1.66 H 0.9-1.15 Activated Partial Thromboplast Time 32.5 24.5-34.5 SEC Lactic Acid Level 2.6 *H 0.4-2.0 mmol/L POC Glucose 251 H 70-106 mg/dl Iron Level 82 65-175 ug/dL Total Iron Binding Capacity 235 L 250-425 ug/dL Percent Iron Saturation 34.9 20-55 % Total Bilirubin 2.4 H 0.2-1.0 mg/dL Direct Bilirubin 1.1 H <0.3 mg/dL Aspartate Amino Transferase (AST) 2380 H 13-40 U/L Alanine Aminotransferase (ALT) 2861 H 7-40 U/L Alkaline Phosphatase 84 46-116 U/L Total Protein 5.8 5.7-8.2 g/dL Albumin 3.5 3.2-4.8 g/dL Vitamin D 25-Hydroxy 43.0 30.0-100 ng/mL Blood Gas Specimen Type Arterial Blood Gas Sample Site Right radial Blood Gas Patient Temperature 37.0 Arterial Blood Date Drawn [id number] Arterial Blood pH 7.391 7.350-7.450 Arterial Blood Partial Pressure CO2 31.0 L 35.0-48.0 mmHg Arterial Blood Partial Pressure O2 102.6 83.0-108.0 mmHg Arterial Blood HCO3 18.4 L 21.0-28.0 mmol/L Arterial Blood Oxygen Saturation 97.1 94.0-98.0 % Arterial Blood Base Excess -5.5 L -2.0-3.0 mmol/L Arterial Blood Oxyhemoglobin 96.6 94.0-98.0 % Arterial Blood Carboxyhemoglobin 0.2 L 0.5-1.5 % Arterial Blood Methemoglobin 0.3 0.0-1.5 % Bruno Test Modified Blood Gas Total Hemoglobin 12.30 L 13.5-17.5 g/dL Blood Gas Set Respiration Rate 16.0 Blood Gas Modality Vent - ac FiO2 % 30.0 Blood Gas Tidal Volume 500.0 Blood Gas PEEP or CPAP 5.0 Test 09/11/24 03:15 09/10/24 15:47 09/10/24 15:32 09/10/24 11:53 Range/Units White Blood Count 10.8 4.4-10.8 10^3/uL Red Blood Count 3.60 L 4.5-5.90 10^6/uL Hemoglobin 11.7 L 13.5-17.5 g/dL Hematocrit 33.9 #L 41.0-53.0 % Mean Corpuscular Volume 94.1 80.0-100.0 fL Mean Corpuscular Hemoglobin 32.6 H 28.0-32.0 pg Mean Corpuscular Hemoglobin Concent 34.6 32.0-36.0 g/dL Red Cell Distribution Width 14.0 11.8-14.3 % Platelet Count 70 L 140-450 10^3/uL Mean Platelet Volume 9.4 6.9-10.8 fL Neutrophils (%) (Auto) 86.5 H 37.0-80.0 % Lymphocytes (%) (Auto) 7.1 L 10.0-50.0 % Monocytes (%) (Auto) 6.3 0.0-12.0 % Eosinophils (%) (Auto) 0.0 0.0-7.0 % Basophils (%) (Auto) 0.1 0.0-2.0 % Neutrophils # (Auto) 9.4 H 1.6-8.6 10 ^3/uL Lymphocytes # (Auto) 0.8 0.4-5.4 10 ^3/uL Monocytes # (Auto) 0.7 0-1.3 10 ^3/uL Eosinophils # (Auto) 0 0-0.8 10 ^3/uL Basophils # (Auto) 0 0-0.2 10 ^3/uL Nucleated Red Blood Cells 0.5 % Sodium Level 134 L 136-145 mmol/L Potassium Level 4.1 3.5-5.1 mmol/L Chloride Level 100 98-107 mmol/L Carbon Dioxide Level 22 20-31 mmol/L Anion Gap 12 5-15 Blood Urea Nitrogen 78 H 9-23 mg/dL Creatinine 2.01 H 0.700-1.30 mg/dL Glomerular Filtration Rate Calc 34 >90 mL/min BUN/Creatinine Ratio 38.8 H 10.0-20.0 Serum Glucose 497 *H 74-106 mg/dL Calcium Level 8.1 L 8.7-10.4 mg/dL Phosphorus Level 5.2 H 2.4-5.1 mg/dL Magnesium Level 2.9 H 1.6-2.6 mg/dL Creatine Kinase 1056 H 46-171 U/L Troponin I High Sensitivity > 51688 *H </=54 ng/L B-Type Natriuretic Peptide 3744.56 0-100 pg/mL Parathyroid Hormone (Intact) 154.1 H 18.4-80.1 pg/mL Random Vancomycin Level 13.6 H 5-10 ug/mL Urine Color Yellow Yellow Urine Clarity Clear Clear Urine pH 5.0 5.0-9.0 Urine Specific [place] 1.019 1.001-1.035 Urine Protein Negative Negative Urine Ketones 1+ H Negative Urine Blood Negative Negative /uL Urine Nitrite Negative Negative Urine Bilirubin Negative Negative Urine Urobilinogen Normal Negative mg/dL Urine Leukocyte Esterase Negative Negative /uL Urine RBC 1 0 - 3 /hpf Urine Microscopic WBC 2 0-3 /HPF Urine Squamous Epithelial Cells Few <5 /hpf Urine Bacteria None seen None Seen /hpf Urine Hyaline Casts Many 0 - 2 /lpf Urine Mucus Few None Seen Urine Glucose 4+ H Normal mg/dL Platelet Estimate Decreased Red Blood Cell Morphology Normal Ammonia < 10 L 11-32 umol/L Triglycerides Level 92 < 150 mg/dL Cholesterol Level 87 < 200 mg/dL LDL Cholesterol 34 < 100 mg/dL HDL Cholesterol 35 L 40-59 mg/dL Beta-Hydroxybutyric Acid 0.325 < 0.4 mmol/L Thyroid Stimulating Hormone (TSH) 4.76 0.55-4.78 uIU/mL Hemoglobin A1c 7.8 H <5.7 % A1C Assessment Assessment: # Acute kidney injury likely multifactorial due to hypoperfusion state due to Cardiogenic shock #Contrast induced nephropathy #Lactic acidosis #?CK elevation likely due to mild rhabdomyolysis #Acute on chronic heart failure exacerbation #Hyperphosphatemia likely due to acute kidney injury #Hypocalcemia #Transaminitis likely shock liver due to ? Ischemic hepatitis due to poor perfusion #Uncontrolled type 2 diabetes #Superficial venous thrombosis on right cephalic vein #Acute hypoxic respiratory failure, on mechanical ventilator #Pneumonia, Gram-positive versus Gram-negative, aspiration pneumonia #Anemia normocytic normochromic #Thrombocytopenia, moderate #Metabolic encephalopathy #Sick sinus syndrome status post permanent pacemaker placement, [employer] #CAD, status post CABG Plan: Continue IV fluids cautiously Maintain map over 65 to preserved renal function Avoid nephrotoxic medication Trend daily renal panel, urine output and lactate Monitor liver function tests Hyperphosphatemia likely due to acute kidney injury no need for binders unless continue rising or developed hypocalcemia symptoms Hypocalcemia likely related to phosphate retention and high PTH, monitor for now Discussed with Dr. Benson Goals of care discussed with the patient for 21 minutes Code status: Full code Patient seen and examined by myself today around with the medicine resident, I agree with the assessment and plan Plan discussed with: Spouse PILAR ERICKSON RESIDENT Sep 11, 2024 15:45 COLEMAN BENSON MD Sep 12, 2024 09:46
[2024-09-11 16:18] LABS: COVID19 ANTIGEN SOFIA FIA NEGATIVE (NEGATIVE); Rapid Influenza A Negative (Negative); Rapid Influenza B Negative (Negative)
[2024-09-11 16:40] LABS: Protein, Urine 33.5 mg/dL (1-14)
[2024-09-11 16:43] LABS: Creatinine, Urine 51.07 mg/dL (30.0-125.0); Urine Protein/Creatinine Ratio 0.66
[2024-09-11 16:47] LABS: Phencyclidine Screen, Urine Neg (NEGATIVE)
[2024-09-11 16:48] LABS: Amphetamine Screen, Urine Neg (NEGATIVE); Barbiturate Scree,Urine Neg (NEGATIVE); Benzodiazephine Screen, Urine Pos (NEGATIVE); Cannabinoid Screen, Urine Neg (NEGATIVE); Cocaine Screen, Urine Neg (NEGATIVE); Opiate Scree,Urine Pos (NEGATIVE)
--- NOTE | 2024-09-11 17:01 | DVHPN2 ---
Consult Progress Note Date Seen: Sep 11, 2024 Subjective Other Systems: Patient was seen and evaluated in follow up in the ICU. Patient is intubated and sedated on ventilator. 30% Fi02. Patient is s/p cardiac cath, temporary trans venous pacemaker, permanent dual chamber pacemaker implanted. Covid is negative. LA 2.6, Troponin 404 > 433. Creatinine kinase 1056, BUN 78, Ski Edge Painter 2.01, AST 2380, ALT 2861. UDS is pending. Objective vital signs Vital Sign Date Time Temp Pulse Resp B/P (MAP) Pulse Ox O2 Delivery O2 Flow Rate FiO2 09/11/24 16:00 89 09/11/24 16:00 100.4 15 117/59 (78) 100 212.7 09/11/24 16:00 30 09/11/24 16:00 Mechanical Ventilator+ 09/10/24 15:10 0 Total Intake and Output 09/10/24 09/10/24 09/11/24 15:00 23:00 07:00 Intake Total 1000 ml 158.0 ml Output Total 700 ml Balance 1000 ml -542.0 ml medications Current Medications Medications Dose Ordered Sig/Mervat Route Start Time Stop Time Status Last Admin Dose Admin Norepinephrine Bitartrate 250 ml @ 3.75 mls/hr Q24H IV 09/10/24 17:00 09/11/24 02:34 3.75 MLS/HR Fentanyl Citrate 250 ml @ 2.5 mls/hr Q24H IV 09/10/24 19:00 09/10/24 16:36 2.5 MLS/HR Nitroglycerin 0.4 mg Q5MINP PRN SL 09/10/24 19:00 Midazolam HCl 50 ml @ 1 mls/hr Q24H IV 09/10/24 19:00 09/10/24 23:48 6 MLS/HR Vancomycin HCl 0 ml @ 0 mls/hr UD IV 09/10/24 19:00 Insulin Glargine 25 units HS SC 09/11/24 22:00 Furosemide 20 mg TID IV 09/11/24 06:00 09/11/24 13:42 20 MG Insulin Glargine 14 units DAILY@1000 SC 09/11/24 10:00 09/11/24 11:02 14 UNITS Diagnostic Test (Pha) 1 strip Q6HR 09/11/24 12:00 09/11/24 12:21 1 STRIP Insulin Human Regular Q6HR SC 09/11/24 12:00 09/11/24 12:23 12 UNITS Dextrose 50 ml UD PRN IV 09/11/24 10:15 Cefepime HCl 50 ml @ 12.5 mls/hr Q12HR IV 09/11/24 22:00 Pantoprazole Sodium 40 mg DAILY IV 09/12/24 10:00 Calcium Acetate 667 mg TIDWMEALS PO 09/11/24 12:00 Examination: GENERAL:Abnormal (Ill appearing, intubated on ventilator), HEENT:Normal, NECK:Normal, LUNGS:Abnormal (Decreased breath sounds), ABDOMEN:Normal, SKIN:Normal, NEURO:Abnormal (Chemically sedated.) laboratory and microbiology Laboratory Tests 09/11/24 03:15 Test 09/11/24 03:15 Range/Units Serum Glucose 497 *H 74-106 mg/dL Problem List/Assessment/Plan Problem List/Assessment/Plan Problem List/Assessment/Plan High-risk non ST-elevation myocardial infarction with progressive coronary artery disease. Sick sinus syndrome with severe bradycardia and sinus pauses s/p TV pacemaker s/p permanent dual-chamber pacemaker. Coronary artery disease status post quadruple CABG, 2020. Diabetes mellitus with diabetic ketoacidosis. Rule out structural heart disease. History of hypertension. Dyslipidemia. Thrombocytopenia. Elevated LFTs. Likely AVA on CKD. Plan/Recommendation Continued all current supportive medical care. Patient has been seen by Trice Boyer NP on my behalf. We have discussed the plan with the patient. Continue with transthoracic echocardiogram to evaluate cardiac function, preliminary LVEF 10-15% by visual estimate. Obtain a bilateral lower extremity arterial duplex given reported diminished pedal pulses. Obtain a RUE venous US rule out DVT. Continue vasopressor for hemodynamic support. Preload reduction as tolerated. DVT/VTE prophylaxis: SCDs. Hold antiplatelet/anticoagulation given thrombocytopenia. The patient may be a candidate for a pacemaker upgrade to ICD given decreased LV function. Continue Nephrology recommendations. Additional plan as per the hospital course. Plan discussed with: Other Date of Service: Sep 11, 2024 Billing Provider: AVELINO GREWAL MD Cardiology Common Codes: 57355-AAKZMLH INP/OBS CARE (High), 18968-[id number] CARE 30-74 MIN AVELINO RGEWAL MD Sep 11, 2024 17:01
--- NOTE | 2024-09-11 17:21 | DVH ---
EXAM: XY CHEST PORTABLE TECHNIQUE: Single frontal chest radiograph CLINICAL HISTORY: NGT VERIFICATION COMPARISON: XY CHEST PORTABLE on DOS: 09/11/24, XY CHEST XRAY 1 VIEW on DOS: 09/10/24, XY CHEST PORTABLE on DOS: 09/10/24 Findings/Impression: Frontal chest radiograph demonstrates no acute osseous or superficial soft tissue abnormalities. Endotracheal tube terminates 2.9 cm from the raffi. Enteric tube is seen descending down into the st omach with the distal tip not visualized. The trachea is midline. The cardiac silhouette and mediastinum are within normal limits. No pneumothorax, pleural effusions, or consolidations.
[2024-09-11] MEDS ORDERED: ACETAMINOPHEN 325 MG TAB PO ONE (17:30)
--- NOTE | 2024-09-11 19:01 | DVH ---
CHEST RADIOGRAPH Indication: central line placemement Technique: Single frontal view of the chest was obtained Comparison: XY CHEST PORTABLE on DOS: 09/11/24, XY CHEST PORTABLE on DOS: 09/11/24, XY CHEST XRAY 1 VIEW on DOS: 09/10/24 FINDINGS: There is a right-sided central venous line with tip in the superior vena cava at the right atrial caval junction. Patient has a bipolar pacemaker with leads in the right atrium and right ventricle. Patient appears o f had a coronary artery bypass graft Endotracheal tube at the level of the clavicles. There is a left-sided pacer paddle. There is a probable left basilar effusion. There is pulmonary vascular congestion. IMPRESSION: 1. Central venous line is in good position. There is pulmonary vascular congestion probable effusion in the left lung base
--- NOTE | 2024-09-11 20:36 | DVHNC2 ---
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 Lopez) Indication: Hypotension Room prepared for procedure: Yes Respooler performed hand hygien: Yes Maximal sterile barrier precau: Mask/Eye shield, Sterile gown, Cap, Sterlie gloves, Large sterlie drape Skin Preparation: Providine iodine Skin preparation completely dr: Yes Insertion site: Right, Internal jugular Central line catheter type: [id number] dialysis Number of lumens: 3 Central line exchanged over a: Yes Antiseptic ointment applied to: Yes Post Assessment: Chest X-Ray, Proper placement, No Pneumothorax Informed consent obtained: Yes Risks/benefits/alt described: Yes Notes Supervised by Dr. Aparicio Date of Service: Sep 11, 2024 Billing Provider: MARC APARICIO MD Common Visit Codes: PROCEDURE ONLY Procedure Codes: 47001-TQSBNP NON-TUNNEL CV CATH ISAIAH CARIAS Sep 11, 2024 20:36 MARC APARICIO MD Sep 15, 2024 20:23
[2024-09-11] MEDS: DEXTROSE (50%) 50ML SYRG IV PRN (20:39)
[2024-09-11] MEDS: CEFEPIME 1GM/ 50ML 50 ML IV SCH (21:52)
[2024-09-11] MEDS ORDERED: INSULIN LANTUS (GLARGINE) 1 /0.01ml (100units/ml) SC SCH (22:00)
[2024-09-12] VITALS (104 sets, daily range): BP systolic 84–157; BP diastolic 17–54; PULSE 68–91; RESP 15–22; TEMP 98.4–100.3; O2SAT 99–100
[2024-09-12] MEDS: Nepro With Carb Steady 1 Liter Bottle GT SCH (00:46)
[2024-09-12 03:58] LABS: Basophils # (auto) 0 10 ^3/uL (0-0.2); Basophils % (auto) 0.1 % (0.0-2.0); Eosinophils # (auto) 0 10 ^3/uL (0-0.8); Neutrophils # (auto) 8.9 10 ^3/uL (1.6-8.6)
[2024-09-12 04:00] LABS: Hemoglobin 12.5 g/dL (13.5-17.5); Lymphocytes # (auto) 0.8 10 ^3/uL (0.4-5.4); Lymphocytes % (auto) 7.9 % (10.0-50.0); Mean Corpuscular Hemoglobin 31.7 pg (28.0-32.0); Mean Corpuscular Hgb Conc. 33.9 g/dL (32.0-36.0); Mean Corpuscular Volume 93.6 fL (80.0-100.0); Monocytes # (auto) 0.7 10 ^3/uL (0-1.3); Monocytes % (auto) 7.1 % (0.0-12.0); Neutrophils % (auto) 84.9 % (37.0-80.0); Nucleated Red Blood Cells % 1.7 %; Platelet Count (auto) 58 10^3/uL (140-450); Red Blood Cells 3.95 10^6/uL (4.5-5.90); Red Cell Distribution Width 14.5 % (11.8-14.3); White Blood Cell 10.5 10^3/uL (4.4-10.8)
[2024-09-12 04:12] LABS: Alkaline Phosphatase 77 U/L (46-116); Anion Gap 8 (5-15); BUN/Creatinine Ratio 57.3 (10.0-20.0); Carbon Dioxide 27 mmol/L (20-31); Sodium 143 mmol/L (136-145)
[2024-09-12 04:13] LABS: Albumin 3.2 g/dL (3.2-4.8)
[2024-09-12 04:37] LABS: Alanine Aminotransferase 2416 U/L (7-40); Aspartate Aminotransferase 1426 U/L (13-40); Blood Urea Nitrogen 67 mg/dL (9-23); Calcium 8.4 mg/dL (8.7-10.4); Chloride 108 mmol/L (98-107); Glucose 112 mg/dL (74-106); Magnesium 2.8 mg/dL (1.6-2.6); Potassium 3.3 mmol/L (3.5-5.1); Total Protein 5.4 g/dL (5.7-8.2)
--- NOTE | 2024-09-12 05:29 | DVH ---
EXAM: XR Chest, 1 View CLINICAL INDICATION: sob TECHNIQUE: Frontal view of the chest. COMPARISON: XY CHEST PORTABLE on DOS: 09/11/24, XY CHEST PORTABLE on DOS: 09/11/24, XY CHEST PORTABLE o n DOS: 09/11/24, XY CHEST XRAY 1 VIEW on DOS: 09/10/24, XY CHEST PORTABLE on DOS: 09/10/24 FINDINGS: LUNGS AND PLEURAL SPACES: Bibasilar atelectasis or pneumonia. Pulmonary venous congestion. No pne umothorax. HEART: Unremarkable. No cardiomegaly. MEDIASTINUM: Unremarkable. Normal mediastinal contour. BONES/JOINTS: Unremarkable. No acute fracture. TUBES, LINES AND DEVICES: Right internal jugular central venous catheter tip in the superior vena c claude. The endotracheal tube (ETT) is in satisfactory position. Enteric tube tip in the stomach. Lef t-sided cardiac pacemaker. OTHER FINDINGS: . . .. IMPRESSION: 1. Bibasilar atelectasis or pneumonia. 2. Pulmonary venous congestion.
[2024-09-12] MEDS: POTASSIUM CHL 20MEQ/50ML 50 ML IV ONE (06:08)
[2024-09-12 07:10] LABS: Base Excess -2.6 mmol/L (-2.0-3.0)
[2024-09-12] MEDS: PANTOPRAZOLE 40 MG/10 ML VIAL INJ IV SCH (10:31)
[2024-09-12 10:45] LABS: Hepatitis A Ab IgM Negative; Hepatitis B Core IgM Negative (Negative); Hepatitis B Surface Antigen Negative (Negative); Hepatitis C Antibody Negative (Negative)
[2024-09-12] MEDS: VANCOMYCIN 750MG KIT 100 ML IV ONE (12:23)
[2024-09-12] MEDS: POTASSIUM EFFERVESENT TAB 25 MEQ GT ONE (13:00)
[2024-09-12] MEDS ORDERED: DEXTROSE (50%) 50ML SYRG IV PRN (13:00)
[2024-09-12] MEDS: CEFEPIME 1GM/ 50ML 50 ML IV SCH (17:02)
[2024-09-12] MEDS: ACCU-CHEK COMFORT CURVE STRIP VI SCH (17:02)
[2024-09-12] MEDS: InsuLIN REG 1unit/0.01ml Soln (100units/ml) SC SCH (17:10)
--- NOTE | 2024-09-12 17:18 | DVHPN2 ---
Progress Note Date Seen: Sep 12, 2024 Resident Creating Document: PILAR ERICKSON RESIDENT Medical Necessity Reason Pt with a Central, PICC or Fol: Yes The following are medically ne: Central Line, Aguayo Catheter Subjective Review of Systems Patient is seen and examined at bedside, currently intubated under mechanical ventilation with the ongoing sedative and vasopressor support. Improving renal function and electrolyte status. No further diagnostic workup indicated at this time, we recommend to continue current supportive management and recommend primary team to continue monitoring labs and hemodynamic status. Patient reports: No new complaints Changes from previous H/P or p: No Changes Other Systems: Patient seen and examined by myself today in follow-up with the medicine resident, I agree with the assessment and plan Objective vital signs Vital Sign Date Time Temp Pulse Resp B/P (MAP) Pulse Ox O2 Delivery O2 Flow Rate FiO2 09/12/24 16:15 121/22 09/12/24 16:00 30 09/12/24 16:00 72 09/12/24 16:00 16 100 Mechanical Ventilator+ 09/12/24 15:15 98.9 98.9 09/10/24 15:10 0 Total Intake and Output 09/11/24 09/11/24 09/12/24 14:59 22:59 06:59 Intake Total 298.75 ml 289.75 ml 447.75 ml Output Total 1150 ml 975 ml Balance 298.75 ml -860.25 ml -527.25 ml medications Current Medications Medications Dose Ordered Sig/Mervat Route Start Time Stop Time Status Last Admin Dose Admin Norepinephrine Bitartrate 250 ml @ 3.75 mls/hr Q24H IV 09/10/24 17:00 09/12/24 08:05 18.75 MLS/HR Fentanyl Citrate 250 ml @ 2.5 mls/hr Q24H IV 09/10/24 19:00 09/12/24 02:31 10 MLS/HR Nitroglycerin 0.4 mg Q5MINP PRN SL 09/10/24 19:00 Midazolam HCl 50 ml @ 1 mls/hr Q24H IV 09/10/24 19:00 09/12/24 12:42 3 MLS/HR Vancomycin HCl 0 ml @ 0 mls/hr UD IV 09/10/24 19:00 Furosemide 20 mg TID IV 09/11/24 06:00 09/12/24 14:00 20 MG Pantoprazole Sodium 40 mg DAILY IV 09/12/24 10:00 09/12/24 10:31 40 MG Calcium Acetate 667 mg TIDWMEALS PO 09/11/24 12:00 09/12/24 17:02 667 MG Enteral Nutritional Formula 1,000 ml 30ML/HR GT 09/11/24 17:30 09/12/24 00:46 1,000 ML Diagnostic Test (Pha) 1 strip Q6HR 09/12/24 18:00 09/12/24 17:02 1 STRIP Insulin Human Regular Q6HR SC 09/12/24 18:00 09/12/24 17:10 6 UNITS Dextrose 50 ml UD PRN IV 09/12/24 13:00 Cefepime HCl 50 ml @ 12.5 mls/hr Q8H IV 09/12/24 18:00 09/12/24 17:02 12.5 MLS/HR Examination General: Patient intubated, sedated on mechanical ventilation. Cardiovascular: Paced rhythm, regular rate no murmurs rubs or gallops. Peripheral pulses are present but diminished in lower extremities. Respiratory: Intubated, breath sounds present bilaterally. GI: Abdomen soft, nondistended. : Aguayo catheter in place Extremities: Bilateral upper extremity swelling noted, pitting edema present no erythema or warmth. laboratory and microbiology Laboratory Tests 09/12/24 11:30 09/12/24 03:18 Test 09/12/24 03:18 Range/Units Serum Glucose 112 #H 74-106 mg/dL Microbiology Date/Time Source Procedure Growth Status 09/11/24 14:54 Voided Urine Urine Culture - Preliminary Resulted 09/10/24 23:47 Blood Blood Culture - Preliminary NO GROWTH AFTER 24 HOURS OF INCUBATION. Resulted 09/10/24 23:30 Nose MRSA Screen - Final Complete 09/10/24 23:16 Sputum Gram Stain - Final Resulted 09/10/24 23:16 Sputum Respiratory Culture - Preliminary Resulted Problem List/Assessment/Plan Problem List/Assessment/Plan # Acute kidney injury likely multifactorial due to hypoperfusion state due to Cardiogenic shock #Contrast induced nephropathy #Acute on chronic heart failure exacerbation #Transaminitis likely shock liver due to ? Ischemic hepatitis due to poor perfusion #Uncontrolled type 2 diabetes #Superficial venous thrombosis on right cephalic vein #Acute hypoxic respiratory failure, on mechanical ventilator #Pneumonia, Gram-positive versus Gram-negative, aspiration pneumonia #Anemia normocytic normochromic #Thrombocytopenia, moderate #Metabolic encephalopathy s/p intubation #Sick sinus syndrome status post permanent pacemaker placement #CAD, status post CABG Plan: Continue IV fluids cautiously Maintain map over 65 to preserved renal function Avoid nephrotoxic medication Trend daily renal panel, urine output and lactate Monitor liver function tests Recommend primary team to continue monitoring labs and hemodynamics status. No further diagnostic workup indicated, we are signing off at this time. Discussed with Dr. Benson Goals of care discussed with the patient for 21 minutes Code status: Full code Plan discussed with: Spouse Dietary Evaluation Review Comments: 1. Current TF nepro support pt's estimated needs 89% pro, and 92% energy if running FS. 2. Reassess protein and energy needs when pt is off vent. Expected Outcomes/Goals: maintain wt, PILAR ERICKSON RESIDENT Sep 12, 2024 17:18 COLEMAN BENSON MD Sep 13, 2024 10:14
--- NOTE | 2024-09-12 17:38 | DVHPN2 ---
Progress Note - Dictate Date Seen: Sep 12, 2024 Medical Necessity Reason Pt with a Central, PICC or Fol: Yes The following are medically ne: Central Line, Aguayo Catheter Subjective Patient was seen and evaluated in follow up in the ICU. Patient is intubated and sedated on ventilator. 30% FiO2. K 3.3, BUN 67, CA 8.4, AST 1426, ALT 2416. Chest x-ray shows bibasilar atelectasis or pneumonia, pulmonary venous congestion. BLE arterial duplex evaluation is limited as right common femoral artery, right deep femoral artery, right proximal superficial femoral artery could not be evaluated due to central line. No obvious evidence of hemodynamically significant stenosis or occlusion in the right lower extremity. There is no evidence for peripheral vascular insufficiency in the left lower extremity. No significant focal stenosis is identified. Upper Extremity Venous Duplex showed a thrombus in the right cephalic vein is visualized. Liver US: no sonographic evidence of gallstones or acute cholecystitis. Hepatic steatosis vital signs Vital Sign Date Time Temp Pulse Resp B/P (MAP) Pulse Ox O2 Delivery O2 Flow Rate FiO2 09/12/24 12:42 130/27 09/12/24 12:02 71 16 100 30 09/12/24 06:00 Mechanical Ventilator+ 09/12/24 04:00 98.4 98.4 09/10/24 15:10 0 Total Intake and Output 09/11/24 09/11/24 09/12/24 15:00 23:00 07:00 Intake Total 215.00 ml 318.00 ml 442.50 ml Output Total 1150 ml 975 ml Balance 215.00 ml -832.00 ml -532.50 ml medications Current Medications Medications Dose Ordered Sig/Mervat Route Start Time Stop Time Status Last Admin Dose Admin Norepinephrine Bitartrate 250 ml @ 3.75 mls/hr Q24H IV 09/10/24 17:00 09/12/24 08:05 18.75 MLS/HR Fentanyl Citrate 250 ml @ 2.5 mls/hr Q24H IV 09/10/24 19:00 09/12/24 02:31 10 MLS/HR Nitroglycerin 0.4 mg Q5MINP PRN SL 09/10/24 19:00 Midazolam HCl 50 ml @ 1 mls/hr Q24H IV 09/10/24 19:00 09/12/24 12:42 3 MLS/HR Vancomycin HCl 0 ml @ 0 mls/hr UD IV 09/10/24 19:00 Furosemide 20 mg TID IV 09/11/24 06:00 09/12/24 06:02 20 MG Insulin Glargine 14 units DAILY@1000 SC 09/11/24 10:00 09/11/24 11:02 14 UNITS Cefepime HCl 50 ml @ 12.5 mls/hr Q12HR IV 09/11/24 22:00 09/12/24 10:50 12.5 MLS/HR Pantoprazole Sodium 40 mg DAILY IV 09/12/24 10:00 09/12/24 10:31 40 MG Calcium Acetate 667 mg TIDWMEALS PO 09/11/24 12:00 09/12/24 12:28 667 MG Enteral Nutritional Formula 1,000 ml 30ML/HR GT 09/11/24 17:30 09/12/24 00:46 1,000 ML Diagnostic Test (Pha) 1 strip Q6HR 09/12/24 18:00 Insulin Human Regular Q6HR SC 09/12/24 18:00 Dextrose 50 ml UD PRN IV 09/12/24 13:00 objective GENERAL: Intubated on ventilator. EYES: PERRL, EOMI. Anicteric. HENT: Moist mucous membranes. LUNGS: Decreased breath sounds. CARDIOVASCULAR: Regular rate and rhythm. ABDOMEN: Soft, nontender and nondistended. EXTREMITIES: No edema. SKIN: Warm, dry. laboratory and microbiology Laboratory Tests 09/12/24 11:30 09/12/24 03:18 Test 09/12/24 03:18 Range/Units Serum Glucose 112 #H 74-106 mg/dL Problem List High-risk non ST-elevation myocardial infarction. Sick sinus syndrome with severe bradycardia and sinus pauses s/p TV pacer. Coronary artery disease status post quadruple CABG, 2020. Diabetes mellitus with diabetic ketoacidosis. History of hypertension. Dyslipidemia. Thrombocytopenia. Likely AVA on CKD. Metabolic encephalopathy. Lactic acidosis. Hyperphosphatemia. Hypocalcemia. Transaminitis. Superficial venous thrombosis on right cephalic vein. Acute hypoxic respiratory failure, on mechanical ventilator. Pneumonia. Anemia normocytic normochromic. Assessment/Plan Continued all current supportive medical care. IV antibiotics as ordered. Diuretics with Lasix. Nitro SL. Vasopressors for hemodynamic support. GI prophylactics. Additional plan as per the hospital course. Critical care time of 45 minutes provided to include time spent evaluation of patient at bedside, when appropriate patient/family education for diagnosis, treatment plan, review of pertinent medical information and discussion of care with specialty providers and PCP. Mechanical ventilator parameters, treatment and adjustments have personally been reviewed by me and treatment plan by industrial maintenance instructor has also been reviewed. Plan discussed with: Other AVELINO GREWAL MD Sep 12, 2024 13:21
--- NOTE | 2024-09-12 19:46 | DVHPNRES ---
Progress Note Date Seen: Sep 12, 2024 Resident Creating Document: ISAIAH CARIAS RESIDENT Medical Necessity Reason Pt with a Central, PICC or Fol: Yes The following are medically ne: Central Line, Aguayo Catheter Subjective Review of Systems On my assessment, patient was seen and examined at bedside. Currently on mechanical ventilator. Levo at 6. On sedation and analgesia. Objective vital signs Vital Sign Date Time Temp Pulse Resp B/P (MAP) Pulse Ox O2 Delivery O2 Flow Rate FiO2 09/12/24 19:11 109/20 09/12/24 18:30 73 16 100 30 09/12/24 18:00 Mechanical Ventilator+ 09/12/24 17:30 98.4 98.4 09/10/24 15:10 0 Total Intake and Output 09/11/24 09/11/24 09/12/24 15:00 23:00 07:00 Intake Total 215.00 ml 318.00 ml 442.50 ml Output Total 1150 ml 975 ml Balance 215.00 ml -832.00 ml -532.50 ml medications Current Medications Medications Dose Ordered Sig/Mervat Route Start Time Stop Time Status Last Admin Dose Admin Norepinephrine Bitartrate 250 ml @ 3.75 mls/hr Q24H IV 09/10/24 17:00 09/12/24 08:05 18.75 MLS/HR Fentanyl Citrate 250 ml @ 2.5 mls/hr Q24H IV 09/10/24 19:00 09/12/24 02:31 10 MLS/HR Nitroglycerin 0.4 mg Q5MINP PRN SL 09/10/24 19:00 Midazolam HCl 50 ml @ 1 mls/hr Q24H IV 09/10/24 19:00 09/12/24 12:42 3 MLS/HR Vancomycin HCl 0 ml @ 0 mls/hr UD IV 09/10/24 19:00 Furosemide 20 mg TID IV 09/11/24 06:00 09/12/24 14:00 20 MG Pantoprazole Sodium 40 mg DAILY IV 09/12/24 10:00 09/12/24 10:31 40 MG Calcium Acetate 667 mg TIDWMEALS PO 09/11/24 12:00 09/12/24 17:02 667 MG Enteral Nutritional Formula 1,000 ml 30ML/HR GT 09/11/24 17:30 09/12/24 00:46 1,000 ML Diagnostic Test (Pha) 1 strip Q6HR 09/12/24 18:00 09/12/24 17:02 1 STRIP Insulin Human Regular Q6HR SC 09/12/24 18:00 09/12/24 17:10 6 UNITS Dextrose 50 ml UD PRN IV 09/12/24 13:00 Cefepime HCl 50 ml @ 12.5 mls/hr Q8H IV 09/12/24 18:00 09/12/24 17:02 12.5 MLS/HR Examination Physical examination as below: General: Mechanically ventilated, intubated HEENT: Head is normocephalic and atraumatic. Pupils are sluggish Neck: Supple with no cervical lymphadenopathy. Heart: Regular rate without murmur, rub, or gallop. Surgical side due to pacemaker placement on left side, no signs of infections Lungs: Mild diffuse crackles Abdomen: No external sign of injury. Bowel sounds are present. Abdomen is soft, nontender. Extremities: Faint peripheral pulses. There is no clubbing, no cyanosis, and no edema. Skin: No rash. Neurologic: Sedated laboratory and microbiology Laboratory Tests 09/12/24 11:30 09/12/24 03:18 Test 09/12/24 03:18 Range/Units Serum Glucose 112 #H 74-106 mg/dL Microbiology Date/Time Source Procedure Growth Status 09/11/24 17:24 Blood Blood Culture - Preliminary NO GROWTH AFTER 24 HOURS OF INCUBATION. Resulted 09/11/24 14:54 Voided Urine Urine Culture - Preliminary Resulted 09/10/24 23:30 Nose MRSA Screen - Final Complete 09/10/24 23:16 Sputum Gram Stain - Final Resulted 09/10/24 23:16 Sputum Respiratory Culture - Preliminary Resulted Labs and/or images reviewed: Labs reviewed by me, Image(s) reviewed by me Problem List/Assessment/Plan Problem List/Assessment/Plan Neurology #Metabolic encephalopathy Head CT unremarkable Cardiovascular #Acute on chronic systolic CHF #Cardiogenic shock #Sick sinus syndrome status post permanent pacemaker placement, [employer] #CAD, status post CABG #Ischemic cardiomyopathy #History of hypertension #NSTEMI type 1 #Dyslipidemia #Possible PAD #Superficial venous thrombosis on right cephalic vein Lasix 20 mg IV t.i.d. Gave an extra dose of 40mg iv once Pending echo Arterial duplex ultrasound ordered, pending Pulmonology #Acute hypoxic respiratory failure, on mechanical ventilator #Pneumonia, Gram-positive versus Gram-negative, aspiration pneumonia Cefepime IV Vancomycin IV MV: FIO2: 30% TV: 500 RR: 16 PEEP: 5 Pending cultures CPAP trial tomorrow 09/12/24 Nephrology #AVA due to VMN, likely hemodynamically mediated IV fluids given Continue Lasix Endocrinology #Type 2 diabetes mellitus, uncontrolled SSI mod q.6 hours dc Lantus 14 units q.a.m. Gastroenterology #Transaminitis, likely liver shock Monitor H/o GERD Protonix IV Start tube feedings: Nepro Hematology and Oncology #Anemia normocytic normochromic #Thrombocytopenia, moderate Monitor Infectious Disease #Septic shock #Lactic acidosis #Pneumonia, Gram-positive versus Gram-negative, aspiration pneumonia Pending pancultures On cefepime and vancomycin Dermatology x Psychiatry History of depression DVT ppx Held Lovenox due to thrombocytopenia PUD ppx Protonix Drips Levophed 6 Fentanyl Versed will start precedex Lines Right femoral line, 09/10/24, placed Right IJ TLC on 09/11/24 ET tube, 09/10/24 Aguayo, 09/10/24 Updated patient's family member on current status Goals of care were discussed for over 30 minutes. FULL CODE. Critical care time spent outside of procedures: 84 mins Case was discussed with Dr. Aparicio Plan discussed with: Spouse, Other (RN) My Orders My Orders Orders - ISAIAH CARIAS RESIDENT Procedure Category Date Status Time Chest Portable XY 09/12/24 Resulted 04:00 Abg W/ Co-Ox RT 09/12/24 Logged 04:00 Glucose Blood PHA 09/12/24 In Process (Accu-Chek Comfort 18:00 Insulin R (Human) PHA 09/12/24 In Process (Insulin R) 18:00 Dextrose 50% Syringe PHA 09/12/24 In Process 13:00 Cefepime 1gm/ 50ml PHA 09/12/24 In Process (Maxipime 1gm/50ml) 18:00 Code Status CODE 09/12/24 Transmitted 19:24 Dietary Evaluation Review Comments: 1. Current TF nepro support pt's estimated needs 89% pro, and 92% energy if running FS. 2. Reassess protein and energy needs when pt is off vent. Expected Outcomes/Goals: maintain wt, Date of Service: Sep 12, 2024 Billing Provider: MARC APARICIO MD Common Visit Codes: 11547-[id number] CARE 30-74 MIN, [id number] CARE-EACH +30MIN ISAIAH CARIAS RESIDENT Sep 12, 2024 19:46 MARC APARICIO MD Sep 13, 2024 15:39
[2024-09-13] VITALS (108 sets, daily range): BP systolic 88–147; BP diastolic 19–77; PULSE 60–74; RESP 11–23; TEMP 97.6–99; O2SAT 99–100
[2024-09-13] MEDS: DEXMEDETOMIDINE HCL IN D5W 100 ML IV SCH (01:48)
[2024-09-13 04:04] LABS: Basophils # (auto) 0 10 ^3/uL (0-0.2); Eosinophils # (auto) 0.1 10 ^3/uL (0-0.8); Eosinophils % (auto) 0.6 % (0.0-7.0); Mean Corpuscular Volume 93.4 fL (80.0-100.0)
[2024-09-13 04:06] LABS: Basophils % (auto) 0.5 % (0.0-2.0); Hemoglobin 11.5 g/dL (13.5-17.5); Lymphocytes # (auto) 1.2 10 ^3/uL (0.4-5.4); Lymphocytes % (auto) 12.8 % (10.0-50.0); Mean Corpuscular Hemoglobin 32.6 pg (28.0-32.0); Mean Corpuscular Hgb Conc. 34.9 g/dL (32.0-36.0); Monocytes # (auto) 0.6 10 ^3/uL (0-1.3); Monocytes % (auto) 6.7 % (0.0-12.0); Neutrophils # (auto) 7.3 10 ^3/uL (1.6-8.6); Neutrophils % (auto) 79.4 % (37.0-80.0); Nucleated Red Blood Cells % 0.3 %; Platelet Count (auto) 61 10^3/uL (140-450); Red Blood Cells 3.53 10^6/uL (4.5-5.90); White Blood Cell 9.1 10^3/uL (4.4-10.8)
[2024-09-13 04:22] LABS: Anion Gap 7 (5-15); Carbon Dioxide 31 mmol/L (20-31); Potassium 3.8 mmol/L (3.5-5.1)
[2024-09-13 04:32] LABS: Blood Urea Nitrogen 59 mg/dL (9-23); Calcium 8.3 mg/dL (8.7-10.4); Chloride 108 mmol/L (98-107); Glucose 110 mg/dL (74-106); Magnesium 2.8 mg/dL (1.6-2.6); Sodium 146 mmol/L (136-145)
[2024-09-13 04:47] LABS: BUN/Creatinine Ratio 62.8 (10.0-20.0)
--- NOTE | 2024-09-13 06:07 | DVH ---
EXAM: XR Chest, 1 View CLINICAL INDICATION: INTUBATED TECHNIQUE: Frontal view of the chest. COMPARISON: XY CHEST PORTABLE on DOS: 09/12/24, XY CHEST PORTABLE on DOS: 09/11/24, XY CHEST PORTABLE o n DOS: 09/11/24, XY CHEST PORTABLE on DOS: 09/11/24, XY CHEST PORTABLE on DOS: 09/10/24 FINDINGS: LUNGS AND PLEURAL SPACES: Pulmonary venous congestion. No consolidation. No pneumothorax. HEART: Unremarkable. No cardiomegaly. MEDIASTINUM: Unremarkable. Normal mediastinal contour. BONES/JOINTS: Unremarkable. No acute fracture. TUBES, LINES AND DEVICES: Stable tubes and lines. Left-sided cardiac pacemaker. OTHER FINDINGS: . . .. IMPRESSION: Pulmonary venous congestion.
[2024-09-13 07:18] LABS: Base Excess 4.7 mmol/L (-2.0-3.0)
[2024-09-13] MEDS: POTASSIUM EFFERVESENT TAB 25 MEQ GT ONE (08:20)
[2024-09-13] MEDS: FUROSEMIDE 40 MG/4 ML VIAL IV ONE (08:21)
--- NOTE | 2024-09-13 10:49 | DVHPNRES ---
Progress Note Date Seen: Sep 13, 2024 Resident Creating Document: ISAIAH CARIAS RESIDENT Medical Necessity Reason Pt with a Central, PICC or Fol: Yes The following are medically ne: Central Line, Aguayo Catheter Subjective Review of Systems On my assessment, patient was seen and examined at bedside. Currently on mechanical ventilator. Levo at 4. On sedation and analgesia, we will wane him off. he failed cpap trial today 09/13/24 Objective vital signs Vital Sign Date Time Temp Pulse Resp B/P (MAP) Pulse Ox O2 Delivery O2 Flow Rate FiO2 09/13/24 09:25 60 16 103/27 (52) 100 30 09/13/24 08:00 Mechanical Ventilator+ 09/13/24 07:30 97.6 97.6 Total Intake and Output 09/12/24 09/12/24 09/13/24 15:00 23:00 07:00 Intake Total 287.75 ml 725.25 ml 416.25 ml Output Total 1000 ml 920 ml Balance 287.75 ml -274.75 ml -503.75 ml medications Current Medications Medications Dose Ordered Sig/Mervat Route Start Time Stop Time Status Last Admin Dose Admin Norepinephrine Bitartrate 250 ml @ 3.75 mls/hr Q24H IV 09/10/24 17:00 09/13/24 00:07 15 MLS/HR Fentanyl Citrate 250 ml @ 2.5 mls/hr Q24H IV 09/10/24 19:00 09/12/24 02:31 10 MLS/HR Nitroglycerin 0.4 mg Q5MINP PRN SL 09/10/24 19:00 Midazolam HCl 50 ml @ 1 mls/hr Q24H IV 09/10/24 19:00 09/12/24 12:42 3 MLS/HR Furosemide 20 mg TID IV 09/11/24 06:00 09/13/24 06:10 20 MG Pantoprazole Sodium 40 mg DAILY IV 09/12/24 10:00 09/13/24 09:56 40 MG Calcium Acetate 667 mg TIDWMEALS PO 09/11/24 12:00 09/13/24 08:21 667 MG Enteral Nutritional Formula 1,000 ml 30ML/HR GT 09/11/24 17:30 09/12/24 00:46 1,000 ML Diagnostic Test (Pha) 1 strip Q6HR 09/12/24 18:00 09/13/24 06:11 1 STRIP Insulin Human Regular Q6HR SC 09/12/24 18:00 09/13/24 00:16 2 UNITS Dextrose 50 ml UD PRN IV 09/12/24 13:00 Cefepime HCl 50 ml @ 12.5 mls/hr Q8H IV 09/12/24 18:00 09/13/24 10:02 12.5 MLS/HR Examination Physical examination as below: General: Mechanically ventilated, intubated HEENT: Head is normocephalic and atraumatic. Pupils are sluggish Neck: Supple with no cervical lymphadenopathy. Heart: Regular rate without murmur, rub, or gallop. Surgical side due to pacemaker placement on left side, no signs of infections Lungs: Mild diffuse crackles Abdomen: No external sign of injury. Bowel sounds are present. Abdomen is soft, nontender. Extremities: Faint peripheral pulses. There is no clubbing, no cyanosis, and no edema. Skin: No rash. Neurologic: Sedated laboratory and microbiology Laboratory Tests 09/13/24 03:25 Test 09/13/24 03:25 Range/Units Serum Glucose 110 H 74-106 mg/dL Microbiology Date/Time Source Procedure Growth Status 09/11/24 17:24 Blood Blood Culture - Preliminary NO GROWTH AFTER 24 HOURS OF INCUBATION. Resulted 09/11/24 14:54 Voided Urine Urine Culture - Preliminary Resulted 09/10/24 23:30 Nose MRSA Screen - Final Complete 09/10/24 23:16 Sputum Gram Stain - Final Resulted 09/10/24 23:16 Sputum Respiratory Culture - Preliminary Resulted Labs and/or images reviewed: Labs reviewed by me, Image(s) reviewed by me Problem List/Assessment/Plan Problem List/Assessment/Plan Neurology #Metabolic encephalopathy Head CT unremarkable Cardiovascular #Acute on chronic systolic CHF #Cardiogenic shock #Sick sinus syndrome status post permanent pacemaker placement, [employer] #CAD, status post CABG #Ischemic cardiomyopathy #History of hypertension #NSTEMI type 1 #Dyslipidemia #Possible PAD #Superficial venous thrombosis on right cephalic vein Lasix 20 mg IV t.i.d. Gave an extra dose of 40mg iv once Pending echo Arterial duplex ultrasound ordered, unremarkable Pulmonology #Acute hypoxic respiratory failure, on mechanical ventilator #Pneumonia, Gram-positive versus Gram-negative, aspiration pneumonia Cefepime IV DC Vancomycin IV MV: FIO2: 30% TV: 500 RR: 16 PEEP: 5 Pending cultures CPAP trial today 09/12/24, failed, repeat tomorrow Nephrology #AVA due to VMN, likely hemodynamically mediated IV fluids given Continue Lasix Endocrinology #Type 2 diabetes mellitus, uncontrolled SSI mod q.6 hours dc Lantus 14 units q.a.m. Gastroenterology #Transaminitis, likely liver shock Monitor H/o GERD Protonix IV Start tube feedings: Nepro Hematology and Oncology #Anemia normocytic normochromic #Thrombocytopenia, moderate Monitor Infectious Disease #Septic shock #Lactic acidosis #Pneumonia, Gram-positive versus Gram-negative, aspiration pneumonia Pending pancultures, no growth On cefepime Dermatology x Psychiatry History of depression DVT ppx Held Lovenox due to thrombocytopenia PUD ppx Protonix Drips Levophed 6 Fentanyl Versed will start precedex Lines Right femoral line, 09/10/24, placed Right IJ TLC on 09/11/24 ET tube, 09/10/24 Aguayo, 09/10/24 Updated patient's family member on current status Goals of care were discussed for over 30 minutes. FULL CODE. Critical care time spent outside of procedures: 84 mins Case was discussed with Dr. Aparicio Plan discussed with: Spouse, Other (RN) My Orders My Orders Orders - ISAIAH CARIAS RESIDENT Procedure Category Date Status Time Glucose Blood PHA 09/12/24 In Process (Accu-Chek Comfort 18:00 Insulin R (Human) PHA 09/12/24 In Process (Insulin R) 18:00 Dextrose 50% Syringe PHA 09/12/24 In Process 13:00 Cefepime 1gm/ 50ml PHA 09/12/24 In Process (Maxipime 1gm/50ml) 18:00 Code Status CODE 09/12/24 Transmitted 19:24 Abg W/ Co-Ox RT 09/13/24 Logged 04:00 Dietary Evaluation Review Comments: 1. Current TF nepro support pt's estimated needs 89% pro, and 92% energy if running FS. 2. Reassess protein and energy needs when pt is off vent. Expected Outcomes/Goals: maintain wt, Date of Service: Sep 13, 2024 Billing Provider: MARC APARICIO MD Common Visit Codes: [id number] CARE 30-74 MIN, [id number] CARE-EACH +30MIN ISAIAH CARIAS RESIDENT Sep 13, 2024 10:49 MARC APARICIO MD Sep 15, 2024 20:33
[2024-09-13] MEDS: LORazepam 2MG/ML-1ML VIAL ONE (15:50)
[2024-09-13] MEDS ORDERED: LORazepam 2MG/ML-1ML VIAL IV PRN (16:00)
[2024-09-13] MEDS: LORazepam 2MG/ML-1ML VIAL IV PRN (16:26)
--- NOTE | 2024-09-13 16:40 | DVHSR ---
APPROVED REPORT EXAM: Two-dimensional and M-mode echocardiogram with Doppler and color Doppler. Blood Pressure: 114/29 mmHg INDICATION NSTEMI Surgery/Intervention Pacemaker: RISK [employer]CTORS Height: 5'6", Weight: 157 DIMENSIONS LVDd5.8 (3.8-5.7cm)LA (2D)4.0 (1.9-4.0cm)Aortic Root3.8 (2.0-3.7cm) LVDs5.5 (2.5-4.0cm)LA (MM) (1.9-4.0cm)Aortic Cusp Exc1.7 (1.5-2.0cm) EF (%) 10.0 (55-70%)Rt. Atrium4.6 (1.9-4.0cm)Asc. Aorta3.2 cm IVSd1.1 (0.7-1.1cm)RV (D)4.2 (1.8-2.4cm) PWd0.8 (0.7-1.1cm) Mitral Valve MitralMitral Stenosis E wave0.41m/sMV Mean GR.mmHg A wave0.61m/sMV Peak GR.mmHg E/A ratio0.72D MVAcm2 DECEL [id number] 1/2 Timems Aortic Valve Aortic ValveAortic Stenosis V10.50m/Bright Mean GR.mmHg V20.89m/Bright Peak GR.3mmHg LVOT Diameter2.3 (1.8-2.4cm)Doppler AVA2.33cm2 2D AVA2.56cm2 AI P 1/2 [id number] Pulmonic Valve V20.52m/s Tricuspid Valve TR Velocity2.30m/s [id number] Other Information Quality : Technically LimitedRhythm : Technically limited study due to body habitus. Conclusion Technically good study. Sinus rhythm. First-degree AV block. Biatrial enlargement. Biventricular enlargement. Aortic root enlargement. Dilation of the sinuses of Valsalva. Mild aortic sclerosis. Mild thickening of the posterior mitral leaflet. Left ventricular function is diminished. EF is approximately 10% with severe global hypokinesis. Ma rkedly diminished right ventricular function as well. Doppler reveals mild pulmonic insufficiency. Moderate tricuspid regurgitation. No pericardial effusion masses or vegetations.
--- NOTE | 2024-09-13 23:05 | DVHPN2 ---
Progress Note - Dictate Date Seen: Sep 13, 2024 Medical Necessity Reason Pt with a Central, PICC or Fol: Yes The following are medically ne: Central Line, Aguayo Catheter Subjective Patient was seen and evaluated in follow up in the ICU. Patient is intubated and sedated on ventilator. 30% FiO2. Patient on Levophed drip. Patient failed CPAP trial today. NA 146, CL 108, BUN 59, CA 8.3. Chest x-ray shows pulmonary venous congestion. vital signs Vital Sign Date Time Temp Pulse Resp B/P (MAP) Pulse Ox O2 Delivery O2 Flow Rate FiO2 09/13/24 11:30 63 18 119/37 (64) 100 09/13/24 10:00 30 09/13/24 10:00 Mechanical Ventilator+ 09/13/24 07:30 97.6 97.6 Total Intake and Output 09/12/24 09/12/24 09/13/24 15:00 23:00 07:00 Intake Total 287.75 ml 725.25 ml 430.95 ml Output Total 1000 ml 920 ml Balance 287.75 ml -274.75 ml -489.05 ml medications Current Medications Medications Dose Ordered Sig/Mervat Route Start Time Stop Time Status Last Admin Dose Admin Norepinephrine Bitartrate 250 ml @ 3.75 mls/hr Q24H IV 09/10/24 17:00 09/13/24 00:07 15 MLS/HR Fentanyl Citrate 250 ml @ 2.5 mls/hr Q24H IV 09/10/24 19:00 09/12/24 02:31 10 MLS/HR Nitroglycerin 0.4 mg Q5MINP PRN SL 09/10/24 19:00 Midazolam HCl 50 ml @ 1 mls/hr Q24H IV 09/10/24 19:00 09/12/24 12:42 3 MLS/HR Furosemide 20 mg TID IV 09/11/24 06:00 09/13/24 06:10 20 MG Pantoprazole Sodium 40 mg DAILY IV 09/12/24 10:00 09/13/24 09:56 40 MG Calcium Acetate 667 mg TIDWMEALS PO 09/11/24 12:00 09/13/24 08:21 667 MG Enteral Nutritional Formula 1,000 ml 30ML/HR GT 09/11/24 17:30 09/12/24 00:46 1,000 ML Diagnostic Test (Pha) 1 strip Q6HR 09/12/24 18:00 09/13/24 06:11 1 STRIP Insulin Human Regular Q6HR SC 09/12/24 18:00 09/13/24 00:16 2 UNITS Dextrose 50 ml UD PRN IV 09/12/24 13:00 Cefepime HCl 50 ml @ 12.5 mls/hr Q8H IV 09/12/24 18:00 09/13/24 10:02 12.5 MLS/HR objective GENERAL: Intubated on ventilator. EYES: PERRL, EOMI. Anicteric. HENT: Moist mucous membranes. LUNGS: Decreased breath sounds. CARDIOVASCULAR: Regular rate and rhythm. ABDOMEN: Soft, nontender and nondistended. EXTREMITIES: No edema. SKIN: Warm, dry. laboratory and microbiology Laboratory Tests 09/13/24 03:25 Test 09/13/24 03:25 Range/Units Serum Glucose 110 H 74-106 mg/dL Problem List High-risk non ST-elevation myocardial infarction. Sick sinus syndrome with severe bradycardia and sinus pauses s/p TV pacer. Coronary artery disease status post quadruple CABG, 2020. Diabetes mellitus with diabetic ketoacidosis. History of hypertension. Dyslipidemia. Thrombocytopenia. Likely AVA on CKD. Metabolic encephalopathy. Lactic acidosis. Hyperphosphatemia. Hypocalcemia. Transaminitis. Superficial venous thrombosis on right cephalic vein. Acute hypoxic respiratory failure, on mechanical ventilator. Pneumonia. Anemia normocytic normochromic. Assessment/Plan Continued all current supportive medical care. IV antibiotics as ordered. Diuretics with Lasix. Nitro SL. Vasopressors for hemodynamic support. GI prophylactics. Additional plan as per the hospital course. Critical care time of 45 minutes provided to include time spent evaluation of patient at bedside, when appropriate patient/family education for diagnosis, treatment plan, review of pertinent medical information and discussion of care with specialty providers and PCP. Mechanical ventilator parameters, treatment and adjustments have personally been reviewed by me and treatment plan by time cycle operator has also been reviewed. Dietary Evaluation Review Comments: 1. Current TF nepro support pt's estimated needs 89% pro, and 92% energy if running FS. 2. Reassess protein and energy needs when pt is off vent. Expected Outcomes/Goals: maintain wt, Plan discussed with: Other AVELINO GREWAL MD Sep 13, 2024 11:44
[2024-09-14] VITALS (105 sets, daily range): BP systolic 51–182; BP diastolic 19–132; PULSE 60–84; RESP 12–26; TEMP 97.2–99.1; O2SAT 89–100
[2024-09-14 04:30] LABS: Eosinophils # (auto) 0.1 10 ^3/uL (0-0.8); Hemoglobin 11.8 g/dL (13.5-17.5); Nucleated Red Blood Cells % 0.1 %
[2024-09-14 04:33] LABS: Basophils # (auto) 0.1 10 ^3/uL (0-0.2); Basophils % (auto) 0.8 % (0.0-2.0); Eosinophils % (auto) 0.6 % (0.0-7.0); Hematocrit 33.1 % (41.0-53.0); Lymphocytes # (auto) 1.2 10 ^3/uL (0.4-5.4); Lymphocytes % (auto) 11.8 % (10.0-50.0); Mean Corpuscular Hemoglobin 33.5 pg (28.0-32.0); Mean Corpuscular Hgb Conc. 35.6 g/dL (32.0-36.0); Monocytes # (auto) 0.7 10 ^3/uL (0-1.3); Monocytes % (auto) 6.9 % (0.0-12.0); Neutrophils # (auto) 7.9 10 ^3/uL (1.6-8.6); Neutrophils % (auto) 79.9 % (37.0-80.0); Platelet Count (auto) 55 10^3/uL (140-450); Red Blood Cells 3.52 10^6/uL (4.5-5.90); Red Cell Distribution Width 14.1 % (11.8-14.3); White Blood Cell 9.9 10^3/uL (4.4-10.8)
[2024-09-14 04:52] LABS: Alkaline Phosphatase 85 U/L (46-116); Anion Gap 8 (5-15); BUN/Creatinine Ratio 54.8 (10.0-20.0); Calcium 8.7 mg/dL (8.7-10.4); Carbon Dioxide 30 mmol/L (20-31); Potassium 3.8 mmol/L (3.5-5.1)
[2024-09-14 05:09] LABS: Alanine Aminotransferase 2065 U/L (7-40); Albumin 3.1 g/dL (3.2-4.8); Aspartate Aminotransferase 795 U/L (13-40); Bilirubin, Total 1.9 mg/dL (0.2-1.0); Blood Urea Nitrogen 46 mg/dL (9-23); Chloride 109 mmol/L (98-107); Glucose 173 mg/dL (74-106); Magnesium 2.7 mg/dL (1.6-2.6); Sodium 147 mmol/L (136-145); Total Protein 5.3 g/dL (5.7-8.2)
--- NOTE | 2024-09-14 05:45 | DVH ---
EXAM: XR Chest, 1 View CLINICAL INDICATION: sob TECHNIQUE: Frontal view of the chest. COMPARISON: XY CHEST PORTABLE on DOS: 09/13/24, XY CHEST PORTABLE on DOS: 09/12/24, XY CHEST PORTABLE on DOS: 09/11/24, XY CHEST PORTABLE on DOS: 09/11/24, XY CHEST PORTABLE on DOS: 09/11/24 FINDINGS: LUNGS AND PLEURAL SPACES: Left basilar atelectasis or pneumonia. No pneumothorax. HEART: Unremarkable. No cardiomegaly. MEDIASTINUM: Unremarkable. Normal mediastinal contour. BONES/JOINTS: Unremarkable. No acute fracture. TUBES, LINES AND DEVICES: Right internal jugular central venous catheter tip in the superior vena c claude. The endotracheal tube (ETT) is in satisfactory position. Enteric tube tip in the stomach. OTHER FINDINGS: . . .. IMPRESSION: Left basilar atelectasis or pneumonia.
--- NOTE | 2024-09-14 10:24 | MEDREC ---
[facility] Intervention Section I [facility] Intervention: Dose optimization(PK/PD) (The Final Sputum culture showed Pseudomonas aeruginosa. Patient is receving Cefepime 1 g q8h. Please consider increaseing Cefepime dose to 2 g iv q8h for Pneumonia treatment) KONRAD CLEMONS [facility] Sep 14, 2024 10:24
[2024-09-14 11:12] LABS: Base Excess 6.6 mmol/L (-2.0-3.0)
[2024-09-14] MEDS: PROPOFOL 100 ML IV ONE (11:36)
--- NOTE | 2024-09-14 12:04 | DVHPN2 ---
Progress Note - Dictate Date Seen: Sep 14, 2024 Medical Necessity Reason Pt with a Central, PICC or Fol: Yes The following are medically ne: Central Line, Aguayo Catheter Subjective Patient was seen and evaluated in follow up in the ICU. Patient is intubated and sedated on ventilator. FiO2 unchanged. Patient is afebrile. NA 147, CL 109, BUN 46, GLUC 222, AST 795, ALT 2065. Chest x-ray shows left basilar atelectasis or pneumonia. vital signs Vital Sign Date Time Temp Pulse Resp B/P (MAP) Pulse Ox O2 Delivery O2 Flow Rate FiO2 09/14/24 10:40 74 26 130/67 (88) 92 30 09/14/24 08:00 Mechanical Ventilator+ 09/14/24 07:15 98.6 98.6 Total Intake and Output 09/13/24 09/13/24 09/14/24 15:00 23:00 07:00 Intake Total 178.850 ml 163.950 ml 235.900 ml Output Total 1500 ml 650 ml Balance 178.850 ml -1336.050 ml -414.100 ml medications Current Medications Medications Dose Ordered Sig/Mervat Route Start Time Stop Time Status Last Admin Dose Admin Norepinephrine Bitartrate 250 ml @ 3.75 mls/hr Q24H IV 09/10/24 17:00 09/13/24 21:47 7.5 MLS/HR Fentanyl Citrate 250 ml @ 2.5 mls/hr Q24H IV 09/10/24 19:00 09/12/24 02:31 10 MLS/HR Nitroglycerin 0.4 mg Q5MINP PRN SL 09/10/24 19:00 Pantoprazole Sodium 40 mg DAILY IV 09/12/24 10:00 09/14/24 09:54 40 MG Enteral Nutritional Formula 1,000 ml 30ML/HR GT 09/11/24 17:30 09/12/24 00:46 1,000 ML Diagnostic Test (Pha) 1 strip Q6HR 09/12/24 18:00 09/14/24 06:23 1 STRIP Insulin Human Regular Q6HR SC 09/12/24 18:00 09/14/24 06:23 6 UNITS Dextrose 50 ml UD PRN IV 09/12/24 13:00 Lorazepam 1 mg Q6HP PRN IV 09/13/24 15:45 09/14/24 07:47 1 MG Lorazepam 1 mg Q8HP PRN IV 09/13/24 16:00 UNV Furosemide 20 mg BIDD IV 09/14/24 18:00 Cefepime/Dextrose 50 ml @ 12.5 mls/hr Q8H IV 09/14/24 18:00 objective GENERAL: Intubated on ventilator. EYES: PERRL, EOMI. Anicteric. HENT: Moist mucous membranes. LUNGS: Decreased breath sounds. CARDIOVASCULAR: Regular rate and rhythm. ABDOMEN: Soft, nontender and nondistended. EXTREMITIES: No edema. SKIN: Warm, dry. laboratory and microbiology Laboratory Tests 09/14/24 03:30 Test 09/14/24 03:30 Range/Units Serum Glucose 173 H 74-106 mg/dL Problem List High-risk non ST-elevation myocardial infarction. Sick sinus syndrome with severe bradycardia and sinus pauses s/p TV pacer. Coronary artery disease status post quadruple CABG, 2020. Diabetes mellitus with diabetic ketoacidosis. History of hypertension. Dyslipidemia. Thrombocytopenia. Likely AVA on CKD. Metabolic encephalopathy. Lactic acidosis. Hyperphosphatemia. Hypocalcemia. Transaminitis. Superficial venous thrombosis on right cephalic vein. Acute hypoxic respiratory failure, on mechanical ventilator. Pneumonia. Anemia normocytic normochromic. Assessment/Plan Continued all current supportive medical care. IV antibiotics as ordered. Diuretics with Lasix. Nitro SL. Vasopressors for hemodynamic support. GI prophylactics. Additional plan as per the hospital course. Critical care time of 45 minutes provided to include time spent evaluation of patient at bedside, when appropriate patient/family education for diagnosis, treatment plan, review of pertinent medical information and discussion of care with specialty providers and PCP. Mechanical ventilator parameters, treatment and adjustments have personally been reviewed by me and treatment plan by lpc has also been reviewed. Dietary Evaluation Review Comments: 1. Current TF nepro support pt's estimated needs 89% pro, and 92% energy if running FS. 2. Reassess protein and energy needs when pt is off vent. Expected Outcomes/Goals: maintain wt, Plan discussed with: Other AVELINO GREWAL MD Sep 14, 2024 11:29
--- NOTE | 2024-09-14 13:34 | DVHPNRES ---
Progress Note Date Seen: Sep 14, 2024 Resident Creating Document: ISAIAH CARIAS RESIDENT Medical Necessity Reason Pt with a Central, PICC or Fol: Yes The following are medically ne: Central Line, Aguayo Catheter Subjective Review of Systems On my assessment, patient was seen and examined at bedside. Currently on mechanical ventilator. Levo at 4. On sedation and analgesia, we will wane him off. he failed cpap trial today again 09/14/24 switched cefepime to zosyn given possible MOBILE UNIT ASSISTANT side effects from cefepime Objective vital signs Vital Sign Date Time Temp Pulse Resp B/P (MAP) Pulse Ox O2 Delivery O2 Flow Rate FiO2 09/14/24 13:00 60 16 112/30 (57) 100 09/14/24 12:45 99.1 99.1 09/14/24 12:41 30 09/14/24 12:00 Mechanical Ventilator+ Total Intake and Output 09/13/24 09/13/24 09/14/24 15:00 23:00 07:00 Intake Total 178.850 ml 163.950 ml 235.900 ml Output Total 1500 ml 650 ml Balance 178.850 ml -1336.050 ml -414.100 ml medications Current Medications Medications Dose Ordered Sig/Mervat Route Start Time Stop Time Status Last Admin Dose Admin Norepinephrine Bitartrate 250 ml @ 3.75 mls/hr Q24H IV 09/10/24 17:00 09/13/24 21:47 7.5 MLS/HR Fentanyl Citrate 250 ml @ 2.5 mls/hr Q24H IV 09/10/24 19:00 09/12/24 02:31 10 MLS/HR Nitroglycerin 0.4 mg Q5MINP PRN SL 09/10/24 19:00 Pantoprazole Sodium 40 mg DAILY IV 09/12/24 10:00 09/14/24 09:54 40 MG Enteral Nutritional Formula 1,000 ml 30ML/HR GT 09/11/24 17:30 09/12/24 00:46 1,000 ML Diagnostic Test (Pha) 1 strip Q6HR 09/12/24 18:00 09/14/24 12:00 1 STRIP Insulin Human Regular Q6HR SC 09/12/24 18:00 09/14/24 06:23 6 UNITS Dextrose 50 ml UD PRN IV 09/12/24 13:00 Lorazepam 1 mg Q6HP PRN IV 09/13/24 15:45 09/14/24 07:47 1 MG Lorazepam 1 mg Q8HP PRN IV 09/13/24 16:00 UNV Furosemide 20 mg BIDD IV 09/14/24 18:00 Cefepime/Dextrose 50 ml @ 12.5 mls/hr Q8H IV 09/14/24 18:00 Lactulose 30 ml DAILYPRN PRN PO 09/14/24 11:30 Examination Physical examination as below: General: Mechanically ventilated, intubated HEENT: Head is normocephalic and atraumatic. Pupils are sluggish Neck: Supple with no cervical lymphadenopathy. Heart: Regular rate without murmur, rub, or gallop. Surgical side due to pacemaker placement on left side, no signs of infections Lungs: Mild diffuse crackles Abdomen: No external sign of injury. Bowel sounds are present. Abdomen is soft, nontender. Extremities: Faint peripheral pulses. There is no clubbing, no cyanosis, and no edema. Skin: No rash. Neurologic: Sedated laboratory and microbiology Laboratory Tests 09/14/24 03:30 Test 09/14/24 03:30 Range/Units Serum Glucose 173 H 74-106 mg/dL Microbiology Date/Time Source Procedure Growth Status 09/11/24 17:24 Blood Blood Culture - Preliminary NO GROWTH AFTER 48 HOURS OF INCUBATION. Resulted 09/11/24 14:54 Voided Urine Urine Culture - Final Complete 09/10/24 23:30 Nose MRSA Screen - Final Complete 09/10/24 23:16 Sputum Gram Stain - Final Complete 09/10/24 23:16 Respiratory Culture - Final Pseudomonas aeruginosa Complete Labs and/or images reviewed: Labs reviewed by me, Image(s) reviewed by me Problem List/Assessment/Plan Problem List/Assessment/Plan Neurology #Metabolic encephalopathy Head CT unremarkable Cardiovascular #Acute on chronic systolic CHF #Cardiogenic shock #Sick sinus syndrome status post permanent pacemaker placement, [employer] #CAD, status post CABG #Ischemic cardiomyopathy #History of hypertension #NSTEMI type 1 #Dyslipidemia #Possible PAD #Superficial venous thrombosis on right cephalic vein Lasix 20 mg IV b.i.d. Pending echo Arterial duplex ultrasound ordered, unremarkable Pulmonology #Acute hypoxic respiratory failure, on mechanical ventilator #Pneumonia, Gram-positive versus Gram-negative, aspiration pneumonia DC Cefepime IV given possible MOBILE UNIT ASSISTANT side effects, Continue zosyn iv MV: FIO2: 30% TV: 500 RR: 16 PEEP: 5 Pending cultures CPAP trial today 09/14/24, failed, repeat tomorrow Nephrology #AVA due to VMN, likely hemodynamically mediated IV fluids given Continue Lasix Endocrinology #Type 2 diabetes mellitus, uncontrolled SSI mod q.6 hours dc Lantus 14 units q.a.m. Gastroenterology #Transaminitis, likely liver shock Monitor H/o GERD Protonix IV Start tube feedings: Nepro Hematology and Oncology #Anemia normocytic normochromic #Thrombocytopenia, moderate Monitor Infectious Disease #Septic shock #Lactic acidosis #Pneumonia, Gram-positive versus Gram-negative, aspiration pneumonia Pending pancultures, no growth On cefepime Dermatology x Psychiatry History of depression DVT ppx Held Lovenox due to thrombocytopenia PUD ppx Protonix Drips Levophed 6 Fentanyl prop Lines Right femoral line, 09/10/24, placed Right IJ TLC on 09/11/24 ET tube, 09/10/24 Aguayo, 09/10/24 Updated patient's family member on current status Goals of care were discussed for over 30 minutes. FULL CODE. Critical care time spent outside of procedures: 84 mins Case was discussed with Dr. Hinton Plan discussed with: Spouse, Other (RN) My Orders My Orders Orders - ISAIAH CARIAS RESIDENT Procedure Category Date Status Time Abg W/ Co-Ox RT 09/13/24 Logged 15:00 Cpap Trial For Am ORDERS 09/14/24 Transmitted 04:00 Chest Portable XY 09/14/24 Resulted 04:00 Abg W/ Co-Ox RT 09/14/24 Logged 04:00 Furosemide Injection PHA 09/14/24 In Process (Lasix Injection) 18:00 Cefepime 2gm/50ml PHA 09/14/24 In Process 18:00 Lactulose Oral PHA 09/14/24 In Process 11:30 Dietary Evaluation Review Comments: 1. Current TF nepro support pt's estimated needs 89% pro, and 92% energy if running FS. 2. Reassess protein and energy needs when pt is off vent. Expected Outcomes/Goals: maintain wt, ISAIAH CARIAS RESIDENT Sep 14, 2024 13:34
[2024-09-14] MEDS: PROPOFOL 100 ML IV SCH (16:34)
[2024-09-14] MEDS: LACTULOSE 20Gm/30ML SOLN PO PRN (17:37)
[2024-09-14] MEDS: CEFEPIME 2GM/50ML 50 ML IV SCH (17:37)
[2024-09-14] MEDS: FUROSEMIDE 20 MG/2 ML VIAL IV SCH (17:38)
[2024-09-14] MEDS: PIPERACILLIN-TAZOB 3.375GM 100 ML IV SCH (23:10)
[2024-09-15] VITALS (109 sets, daily range): BP systolic 78–129; BP diastolic 19–75; PULSE 60–129; RESP 11–23; TEMP 97.8–100.4; O2SAT 88–100
[2024-09-15 04:37] LABS: Alkaline Phosphatase 84 U/L (46-116); Anion Gap 9 (5-15); BUN/Creatinine Ratio 37.6 (10.0-20.0); Bilirubin, Total 1.1 mg/dL (0.2-1.0); Carbon Dioxide 27 mmol/L (20-31); Potassium 3.7 mmol/L (3.5-5.1)
[2024-09-15 04:41] LABS: Albumin 2.6 g/dL (3.2-4.8); Aspartate Aminotransferase 409 U/L (13-40); Blood Urea Nitrogen 32 mg/dL (9-23); Calcium 8.2 mg/dL (8.7-10.4); Chloride 111 mmol/L (98-107); Glucose 236 mg/dL (74-106); Magnesium 2.9 mg/dL (1.6-2.6); Sodium 147 mmol/L (136-145)
[2024-09-15 04:49] LABS: Alanine Aminotransferase 1376 U/L (7-40)
[2024-09-15 05:22] LABS: Basophils # (auto) 0 10 ^3/uL (0-0.2); Basophils % (auto) 0.1 % (0.0-2.0); Eosinophils # (auto) 0.2 10 ^3/uL (0-0.8); Eosinophils % (auto) 1.7 % (0.0-7.0); Hematocrit 33.2 % (41.0-53.0); Hemoglobin 11.1 g/dL (13.5-17.5); Lymphocytes # (auto) 1.1 10 ^3/uL (0.4-5.4); Lymphocytes % (auto) 12.1 % (10.0-50.0); Mean Corpuscular Hemoglobin 31.7 pg (28.0-32.0); Mean Corpuscular Hgb Conc. 33.4 g/dL (32.0-36.0); Monocytes # (auto) 0.9 10 ^3/uL (0-1.3); Monocytes % (auto) 9.6 % (0.0-12.0); Neutrophils # (auto) 7.2 10 ^3/uL (1.6-8.6); Neutrophils % (auto) 76.5 % (37.0-80.0); Nucleated Red Blood Cells % 0.1 %; Platelet Count (auto) 54 10^3/uL (140-450); Red Blood Cells 3.49 10^6/uL (4.5-5.90); Red Cell Distribution Width 14.6 % (11.8-14.3); White Blood Cell 9.4 10^3/uL (4.4-10.8)
--- NOTE | 2024-09-15 06:41 | DVH ---
INDICATION: sob TECHNIQUE: Frontal view of the chest. COMPARISON: XY CHEST PORTABLE on DOS: 09/14/24, XY CHEST PORTABLE on DOS: 09/13/24, XY CHEST PORTABLE o n DOS: 09/12/24, XY CHEST PORTABLE on DOS: 09/11/24, XY CHEST PORTABLE on DOS: 09/11/24, XY CHEST PORTABLE on DOS: 09/14/24 FINDINGS: LUNGS AND PLEURAL SPACES: Left basilar atelectasis or pneumonia. No pneumothorax. HEART: Unremarkable. No cardiomegaly. MEDIASTINUM: Unremarkable. Normal mediastinal contour. BONES/JOINTS: Unremarkable. No acute fracture. TUBES, LINES AND DEVICES: Right internal jugular central venous catheter tip in the superior vena c claude. The endotracheal tube (ETT) is in satisfactory position. Enteric tube tip in the stomach. IMPRESSION: Left basilar atelectasis or pneumonia.
--- NOTE | 2024-09-15 10:19 | DVHPN2 ---
Subjective Patient was encephalopathic Reviewed: Care Plan, H&P, Labs, Medications Changes from previous H/P or p: No Changes General: Per HPI Respiratory: Cough Gastrointestinal: Nausea, Vomiting Objective Vitals Vital Signs Date Time Temp Pulse Resp B/P (MAP) Pulse Ox O2 Delivery O2 Flow Rate FiO2 09/15/24 08:00 30 09/15/24 08:00 71 16 100 Mechanical Ventilator+ 09/15/24 07:00 109/40 (63) 09/15/24 04:00 98.8 98.8 Intake/Output Intake and Output 09/15/24 07:00 Intake Total 1284.050 ml Output Total 1450 ml Balance -165.950 ml Intake Oral 30 ml IV Total 921.050 ml Tube Feeding 333 ml Output Urine Total 1450 ml General Appearance: Other (Encephalopathic) HEENT: Atraumatic, PERRLA Lungs: Clear to auscultation, Normal air movement Cardiovascular: Normal S1, Normal S2 Musculoskeletal: Normal sensory function, Normal motor function Neuro: Other (Unable to assess) Skin: Dry, Intact Psych/Mental Status: Other (Delirious) Medications Current Medications Medications Dose Ordered Sig/Mervat Route Start Time Stop Time Status Last Admin Dose Admin Norepinephrine Bitartrate 250 ml @ 3.75 mls/hr Q24H IV 09/10/24 17:00 09/14/24 17:52 7.5 MLS/HR Fentanyl Citrate 250 ml @ 2.5 mls/hr Q24H IV 09/10/24 19:00 09/14/24 17:41 2.5 MLS/HR Nitroglycerin 0.4 mg Q5MINP PRN SL 09/10/24 19:00 Pantoprazole Sodium 40 mg DAILY IV 09/12/24 10:00 09/14/24 09:54 40 MG Enteral Nutritional Formula 1,000 ml 30ML/HR GT 09/11/24 17:30 09/14/24 17:53 1,000 ML Diagnostic Test (Pha) 1 strip Q6HR 09/12/24 18:00 09/15/24 06:04 1 STRIP Insulin Human Regular Q6HR SC 09/12/24 18:00 09/15/24 06:03 6 UNITS Dextrose 50 ml UD PRN IV 09/12/24 13:00 Lorazepam 1 mg Q6HP PRN IV 09/13/24 15:45 09/14/24 07:47 1 MG Lorazepam 1 mg Q8HP PRN IV 09/13/24 16:00 UNV Furosemide 20 mg BIDD IV 09/14/24 18:00 09/15/24 05:57 20 MG Lactulose 30 ml DAILYPRN PRN PO 09/14/24 11:30 09/14/24 17:37 30 ML Propofol 100 ml @ 2.046 mls/ hr Q24H IV 09/14/24 15:15 09/14/24 19:02 10.23 MLS/HR Piperacillin Sod/ Tazobactam Sod 100 ml @ 25 mls/hr Q8HR IV 09/14/24 22:00 09/15/24 05:53 25 MLS/HR Laboratory Results Laboratory Tests 09/15/24 04:02 Chemistry Test 09/15/24 04:02 Albumin 2.6 g/dL (3.2-4.8) L Calcium Level 8.2 mg/dL (8.7-10.4) L Magnesium Level 2.9 mg/dL (1.6-2.6) H Total Protein 5.0 g/dL (5.7-8.2) L LFT Test 09/15/24 04:02 Alanine Aminotransferase (ALT) 1376 U/L (7-40) H Alkaline Phosphatase 84 U/L (46-116) Aspartate Amino Transferase (AST) 409 U/L (13-40) H Total Bilirubin 1.1 mg/dL (0.2-1.0) H Urinalysis Test 09/10/24 15:47 09/11/24 14:54 Urine Color Yellow (Yellow) Urine Clarity Clear (Clear) Urine pH 5.0 (5.0-9.0) Urine Specific [place] 1.019 (1.001-1.035) Urine Protein Negative (Negative) Urine Ketones 1+ (Negative) H Urine Blood Negative /uL (Negative) Urine Nitrite Negative (Negative) Urine Bilirubin Negative (Negative) Urine Urobilinogen Normal mg/dL (Negative) Urine Leukocyte Esterase Negative /uL (Negative) Urine RBC 1 /hpf (0 - 3) Urine Microscopic WBC 2 /HPF (0-3) Urine Squamous Epithelial Cells Few /hpf (<5) Urine Bacteria None seen /hpf (None Seen) Urine Hyaline Casts Many /lpf (0 - 2) Urine Mucus Few (None Seen) Urine Glucose 4+ mg/dL (Normal) H Urine Osmolality 480 mOsm/kg Urine Creatinine 51.07 mg/dL (30.0-125.0) Urine Protein/Creatinine Ratio 0.66 Urine Sodium 37 mmol/L (40-220) L Urine Total Protein 33.5 mg/dL (1-14) H Blood Gas Results Test 09/14/24 11:09 Arterial Blood pH 7.581 (7.350-7.450) FiO2 % 30.0 Microbiology Microbiology Date/Time Source Procedure Growth Status 09/11/24 17:24 Blood Blood Culture - Preliminary NO GROWTH AFTER 72 HOURS OF INCUBATION. Resulted 09/11/24 14:54 Voided Urine Urine Culture - Final Complete 09/10/24 23:30 Nose MRSA Screen - Final Complete 09/10/24 23:16 Sputum Gram Stain - Final Complete 09/10/24 23:16 Respiratory Culture - Final Pseudomonas aeruginosa Complete Labs and/or images reviewed: Labs reviewed by me, Image(s) reviewed by me Assessment/Plan Assessment/Plan Impression: -NSTEMI type 1 -history of coronary artery disease with CABG with multiple grafts down -acute on chronic systolic heart failure with ejection fraction 10% -acute hypoxic respiratory failure with mechanical ventilation -community-acquired pneumonia with Pseudomonas aeruginosa -acute metabolic encephalopathy versus delirium -sick sinus syndrome, status post pacemaker implant -cardiogenic shock Plan: -spontaneous breathing trial once appropriate. Patient continues to have signs of acute delirium -continue current ventilator settings. Pulmonology on board -continue antibiotic therapy with Zosyn -left arm to sling -continue bronchodilators -IV diuresis -weaned off vasopressors -PUD/DVT prophylaxis -repeat labs, chest x-ray, ABG in a.m. -plan of care discussed with patient's family were bedside. Critical care time spent with patient discussing and formulating plan of care: 40 minutes. This does not include time spent performing procedures. This medical document was created using an electronic medical record system with myhubation system. Although this document has been carefully reviewed, there may still be some phonetic and typographical errors. These areas are purely typographical due to imperfections of the software programs, and do not reflect any compromise in the patient's medical care. Plan discussed with: Patient, Other (RN) Date of Service: Sep 15, 2024 Billing Provider: SUJTAA HERNANDEZ NP Common Visit Codes: 97011-[id number] CARE 30-74 MIN SUJATA HERNANDEZ NP Sep 15, 2024 10:18
[2024-09-15 10:58] LABS: Base Excess 6.6 mmol/L (-2.0-3.0)
--- NOTE | 2024-09-15 12:11 | DVHPN2 ---
Progress Note - Dictate Date Seen: Sep 15, 2024 Medical Necessity Reason Pt with a Central, PICC or Fol: Yes The following are medically ne: Central Line, Aguayo Catheter Subjective Patient seen and examined Overnight events reviewed vital signs Vital Sign Date Time Temp Pulse Resp B/P (MAP) Pulse Ox O2 Delivery O2 Flow Rate FiO2 09/15/24 10:29 78 17 126/75 (92) 100 30 09/15/24 10:00 Mechanical Ventilator+ 09/15/24 04:00 98.8 98.8 Total Intake and Output 09/14/24 09/14/24 09/15/24 15:00 23:00 07:00 Intake Total 137.550 ml 151.50 ml 995.00 ml Output Total 800 ml 650 ml Balance 137.550 ml -648.50 ml 345.00 ml medications Current Medications Medications Dose Ordered Sig/Mervat Route Start Time Stop Time Status Last Admin Dose Admin Norepinephrine Bitartrate 250 ml @ 3.75 mls/hr Q24H IV 09/10/24 17:00 09/14/24 17:52 7.5 MLS/HR Fentanyl Citrate 250 ml @ 2.5 mls/hr Q24H IV 09/10/24 19:00 09/14/24 17:41 2.5 MLS/HR Nitroglycerin 0.4 mg Q5MINP PRN SL 09/10/24 19:00 Pantoprazole Sodium 40 mg DAILY IV 09/12/24 10:00 09/15/24 11:12 40 MG Enteral Nutritional Formula 1,000 ml 30ML/HR GT 09/11/24 17:30 09/14/24 17:53 1,000 ML Diagnostic Test (Pha) 1 strip Q6HR 09/12/24 18:00 09/15/24 06:04 1 STRIP Insulin Human Regular Q6HR SC 09/12/24 18:00 09/15/24 06:03 6 UNITS Dextrose 50 ml UD PRN IV 09/12/24 13:00 Lorazepam 1 mg Q6HP PRN IV 09/13/24 15:45 09/14/24 07:47 1 MG Lorazepam 1 mg Q8HP PRN IV 09/13/24 16:00 UNV Furosemide 20 mg BIDD IV 09/14/24 18:00 09/15/24 05:57 20 MG Lactulose 30 ml DAILYPRN PRN PO 09/14/24 11:30 09/14/24 17:37 30 ML Propofol 100 ml @ 2.046 mls/ hr Q24H IV 09/14/24 15:15 09/14/24 19:02 10.23 MLS/HR Piperacillin Sod/ Tazobactam Sod 100 ml @ 25 mls/hr Q8HR IV 09/14/24 22:00 09/15/24 05:53 25 MLS/HR laboratory and microbiology Laboratory Tests 09/15/24 04:02 Test 09/15/24 04:02 Range/Units Serum Glucose 236 H 74-106 mg/dL Assessment/Plan Impression Acute hypoxemic respiratory failure Hx of substance abuse Pneumonia Delirium Patient seen and examined in ICU Events On mechanical ventilation S/p intubation Able to tolerate pressure support however appears delirious On Precedex drip Labs and imaging reviewed Chest x-ray shows hardware placed correctly ABG reviewed Management Vent support Titrate to maintain sats 90% or above Sedation holiday daily If patient follows commands, proceed to weaning trial Pressure support 12/08, extubate when ready Continue antibiotics F/u cultures Bronchodilators Monitor renal function Monitor electrolytes Supplement as needed Pressors as needed for hemodynamic support To maintain a mean arterial pressure of 65 mmHg Echo report reviewed F/u cardiology DVT prophylaxis Critical care time 35 minutes Dietary Evaluation Review Comments: 1. Current TF nepro support pt's estimated needs 89% pro, and 92% energy if running FS. 2. Reassess protein and energy needs when pt is off vent. Expected Outcomes/Goals: maintain wt, Plan discussed with: Other (Rn) JASBIR HERBERT MD Sep 15, 2024 12:11
--- NOTE | 2024-09-15 19:20 | DVHPN2 ---
Progress Note - Dictate Date Seen: Sep 15, 2024 Medical Necessity Reason Pt with a Central, PICC or Fol: Yes The following are medically ne: Central Line, Aguayo Catheter Subjective Patient was seen and evaluated in follow up in the ICU. Patient is intubated and sedated on ventilator. 30% FiO2. Antibiotics were changed to zosyn. Patient failed CPAP trial today. NA 147, CL 111, BUN 32, CA 8.2, ST 409, ALT 1376. Chest x-ray showed left basilar atelectasis or pneumonia. vital signs Vital Sign Date Time Temp Pulse Resp B/P (MAP) Pulse Ox O2 Delivery O2 Flow Rate FiO2 09/15/24 17:44 94/61 09/15/24 16:00 20 100 Mechanical Ventilator+ 30 30 09/15/24 14:40 101 09/15/24 08:00 97.8 97.8 Total Intake and Output 09/14/24 09/14/24 09/15/24 15:00 23:00 07:00 Intake Total 137.550 ml 151.50 ml 995.00 ml Output Total 800 ml 650 ml Balance 137.550 ml -648.50 ml 345.00 ml medications Current Medications Medications Dose Ordered Sig/Mervat Route Start Time Stop Time Status Last Admin Dose Admin Norepinephrine Bitartrate 250 ml @ 3.75 mls/hr Q24H IV 09/10/24 17:00 09/15/24 17:43 11.25 MLS/HR Fentanyl Citrate 250 ml @ 2.5 mls/hr Q24H IV 09/10/24 19:00 09/14/24 17:41 2.5 MLS/HR Nitroglycerin 0.4 mg Q5MINP PRN SL 09/10/24 19:00 Pantoprazole Sodium 40 mg DAILY IV 09/12/24 10:00 09/15/24 11:12 40 MG Enteral Nutritional Formula 1,000 ml 30ML/HR GT 09/11/24 17:30 09/14/24 17:53 1,000 ML Diagnostic Test (Pha) 1 strip Q6HR 09/12/24 18:00 09/15/24 14:16 1 STRIP Insulin Human Regular Q6HR SC 09/12/24 18:00 09/15/24 06:03 6 UNITS Dextrose 50 ml UD PRN IV 09/12/24 13:00 Lorazepam 1 mg Q6HP PRN IV 09/13/24 15:45 09/14/24 07:47 1 MG Lorazepam 1 mg Q8HP PRN IV 09/13/24 16:00 UNV Furosemide 20 mg BIDD IV 09/14/24 18:00 09/15/24 17:44 20 MG Lactulose 30 ml DAILYPRN PRN PO 09/14/24 11:30 09/14/24 17:37 30 ML Propofol 100 ml @ 2.046 mls/ hr Q24H IV 09/14/24 15:15 09/15/24 17:44 12.276 MLS/HR Piperacillin Sod/ Tazobactam Sod 100 ml @ 25 mls/hr Q8HR IV 09/14/24 22:00 09/15/24 14:16 25 MLS/HR objective GENERAL: Intubated on ventilator. EYES: PERRL, EOMI. Anicteric. HENT: Moist mucous membranes. LUNGS: Decreased breath sounds. CARDIOVASCULAR: Regular rate and rhythm. ABDOMEN: Soft, nontender and nondistended. EXTREMITIES: No edema. SKIN: Warm, dry. laboratory and microbiology Laboratory Tests 09/15/24 04:02 Test 09/15/24 04:02 Range/Units Serum Glucose 236 H 74-106 mg/dL Problem List High-risk non ST-elevation myocardial infarction. Sick sinus syndrome with severe bradycardia and sinus pauses s/p TV pacer. Coronary artery disease status post quadruple CABG, 2020. Diabetes mellitus with diabetic ketoacidosis. History of hypertension. Dyslipidemia. Thrombocytopenia. Likely AVA on CKD. Metabolic encephalopathy. Lactic acidosis. Hyperphosphatemia. Hypocalcemia. Transaminitis. Superficial venous thrombosis on right cephalic vein. Acute hypoxic respiratory failure, on mechanical ventilator. Pneumonia. Anemia normocytic normochromic. Assessment/Plan Continued all current supportive medical care. IV antibiotics as ordered. Diuretics with Lasix. Nitro SL. Vasopressors for hemodynamic support. GI prophylactics. Additional plan as per the hospital course. Critical care time of 45 minutes provided to include time spent evaluation of patient at bedside, when appropriate patient/family education for diagnosis, treatment plan, review of pertinent medical information and discussion of care with specialty providers and PCP. Mechanical ventilator parameters, treatment and adjustments have personally been reviewed by me and treatment plan by engineer steam has also been reviewed. Dietary Evaluation Review Comments: 1. Current TF nepro support pt's estimated needs 89% pro, and 92% energy if running FS. 2. Reassess protein and energy needs when pt is off vent. Expected Outcomes/Goals: maintain wt, Plan discussed with: Other AVELINO GREWAL MD Sep 15, 2024 18:11
[2024-09-16] VITALS (95 sets, daily range): BP systolic 51–184; BP diastolic 28–148; PULSE 60–117; RESP 0–37; TEMP 97.6–98.8; O2SAT 20–100
[2024-09-16 03:53] LABS: Basophils # (auto) 0 10 ^3/uL (0-0.2); Basophils % (auto) 0.1 % (0.0-2.0); Eosinophils # (auto) 0.1 10 ^3/uL (0-0.8); Hemoglobin 11.3 g/dL (13.5-17.5); Monocytes # (auto) 0.8 10 ^3/uL (0-1.3); Nucleated Red Blood Cells % 0.2 %; White Blood Cell 7.9 10^3/uL (4.4-10.8)
[2024-09-16 03:56] LABS: Eosinophils % (auto) 0.9 % (0.0-7.0); Hematocrit 32.9 % (41.0-53.0); Lymphocytes % (auto) 12.1 % (10.0-50.0); Mean Corpuscular Hemoglobin 32.3 pg (28.0-32.0); Mean Corpuscular Hgb Conc. 34.3 g/dL (32.0-36.0); Monocytes % (auto) 9.5 % (0.0-12.0); Neutrophils # (auto) 6.1 10 ^3/uL (1.6-8.6); Neutrophils % (auto) 77.4 % (37.0-80.0); Platelet Count (auto) 50 10^3/uL (140-450); Red Cell Distribution Width 14.7 % (11.8-14.3)
[2024-09-16 04:18] LABS: Alkaline Phosphatase 88 U/L (46-116); Anion Gap 10 (5-15); BUN/Creatinine Ratio 41.2 (10.0-20.0); Carbon Dioxide 31 mmol/L (20-31)
[2024-09-16 04:20] LABS: Bilirubin, Total 1.1 mg/dL (0.2-1.0)
[2024-09-16 04:33] LABS: Alanine Aminotransferase 948 U/L (7-40); Albumin 3.1 g/dL (3.2-4.8); Aspartate Aminotransferase 212 U/L (13-40); Blood Urea Nitrogen 35 mg/dL (9-23); Calcium 8.4 mg/dL (8.7-10.4); Chloride 109 mmol/L (98-107); Glucose 264 mg/dL (74-106); Magnesium 2.7 mg/dL (1.6-2.6); Potassium 3.3 mmol/L (3.5-5.1); Sodium 150 mmol/L (136-145); Total Protein 5.6 g/dL (5.7-8.2)
[2024-09-16] MEDS: POTASSIUM CHL 20MEQ/50ML 50 ML IV ONE (06:08)
--- NOTE | 2024-09-16 06:31 | DVH ---
CHEST RADIOGRAPH Indication: Intubated Technique: Single frontal view of the chest was obtained COMPARISON: XY CHEST PORTABLE on DOS: 09/15/24, XY CHEST PORTABLE on DOS: 09/14/24, XY CHEST PORTABLE o n DOS: 09/13/24, XY CHEST PORTABLE on DOS: 09/12/24, XY CHEST PORTABLE on DOS: 09/11/24 FINDINGS: Lines and Tubes: The endotracheal tube is 0.9 cm above the level of the raffi and May benefit from b eing retracted slightly. The other lines and tubes are unchanged. Lungs: Clear Pleura: No effusion. No pneumothorax. Cardiomediastinal contours: Unremarkable Bones: Unremarkable IMPRESSION: 1. No acute disease. 2. Endotracheal tube tip 0.9 cm above the level of the raffi. Consider retracting by 2 cm.
[2024-09-16 08:12] LABS: Base Excess 5.1 mmol/L (-2.0-3.0)
--- NOTE | 2024-09-16 09:41 | DVHPN2 ---
Subjective Patient continues to be encephalopathic. Reviewed: Care Plan, H&P, Labs, Medications Changes from previous H/P or p: No Changes General: Per HPI Respiratory: Cough Gastrointestinal: Nausea, Vomiting Objective Vitals Vital Signs Date Time Temp Pulse Resp B/P (MAP) Pulse Ox O2 Delivery O2 Flow Rate FiO2 09/16/24 08:26 60 18 87/51 (63) 96 30 09/16/24 06:00 97.9 97.9 09/16/24 06:00 Mechanical Ventilator+ Intake/Output Intake and Output 09/16/24 07:00 Intake Total 1091.738 ml Output Total 1350 ml Balance -258.262 ml Intake Oral 0 ml IV Total 851.738 ml Tube Feeding 240 ml Output Urine Total 1350 ml General Appearance: Other HEENT: Atraumatic, PERRLA Lungs: Clear to auscultation, Normal air movement Cardiovascular: Normal S1, Normal S2 Musculoskeletal: Normal sensory function, Normal motor function Neuro: Other Skin: Dry, Intact Psych/Mental Status: Other Medications Current Medications Medications Dose Ordered Sig/Mervat Route Start Time Stop Time Status Last Admin Dose Admin Norepinephrine Bitartrate 250 ml @ 3.75 mls/hr Q24H IV 09/10/24 17:00 09/15/24 17:43 11.25 MLS/HR Fentanyl Citrate 250 ml @ 2.5 mls/hr Q24H IV 09/10/24 19:00 09/14/24 17:41 2.5 MLS/HR Nitroglycerin 0.4 mg Q5MINP PRN SL 09/10/24 19:00 Pantoprazole Sodium 40 mg DAILY IV 09/12/24 10:00 09/16/24 09:05 40 MG Enteral Nutritional Formula 1,000 ml 30ML/HR GT 09/11/24 17:30 09/14/24 17:53 1,000 ML Diagnostic Test (Pha) 1 strip Q6HR 09/12/24 18:00 09/16/24 05:49 1 STRIP Insulin Human Regular Q6HR SC 09/12/24 18:00 09/16/24 05:50 9 UNITS Dextrose 50 ml UD PRN IV 09/12/24 13:00 Lorazepam 1 mg Q6HP PRN IV 09/13/24 15:45 09/14/24 07:47 1 MG Lorazepam 1 mg Q8HP PRN IV 09/13/24 16:00 UNV Lactulose 30 ml DAILYPRN PRN PO 09/14/24 11:30 09/14/24 17:37 30 ML Piperacillin Sod/ Tazobactam Sod 100 ml @ 25 mls/hr Q8HR IV 09/14/24 22:00 09/16/24 06:03 25 MLS/HR Furosemide 20 mg DAILY IV 09/17/24 10:00 Dopamine HCl/ Dextrose 250 ml @ 6.253 mls/ hr Q24H IV 09/16/24 09:15 Laboratory Results Laboratory Tests 09/16/24 03:23 Chemistry Test 09/16/24 03:23 Albumin 3.1 g/dL (3.2-4.8) L Calcium Level 8.4 mg/dL (8.7-10.4) L Magnesium Level 2.7 mg/dL (1.6-2.6) H Total Protein 5.6 g/dL (5.7-8.2) L LFT Test 09/16/24 03:23 Alanine Aminotransferase (ALT) 948 U/L (7-40) H Alkaline Phosphatase 88 U/L (46-116) Aspartate Amino Transferase (AST) 212 U/L (13-40) H Total Bilirubin 1.1 mg/dL (0.2-1.0) H Urinalysis Test 09/10/24 15:47 09/11/24 14:54 Urine Color Yellow (Yellow) Urine Clarity Clear (Clear) Urine pH 5.0 (5.0-9.0) Urine Specific Jackson 1.019 (1.001-1.035) Urine Protein Negative (Negative) Urine Ketones 1+ (Negative) H Urine Blood Negative /uL (Negative) Urine Nitrite Negative (Negative) Urine Bilirubin Negative (Negative) Urine Urobilinogen Normal mg/dL (Negative) Urine Leukocyte Esterase Negative /uL (Negative) Urine RBC 1 /hpf (0 - 3) Urine Microscopic WBC 2 /HPF (0-3) Urine Squamous Epithelial Cells Few /hpf (<5) Urine Bacteria None seen /hpf (None Seen) Urine Hyaline Casts Many /lpf (0 - 2) Urine Mucus Few (None Seen) Urine Glucose 4+ mg/dL (Normal) H Urine Osmolality 480 mOsm/kg Urine Creatinine 51.07 mg/dL (30.0-125.0) Urine Protein/Creatinine Ratio 0.66 Urine Sodium 37 mmol/L (40-220) L Urine Total Protein 33.5 mg/dL (1-14) H Blood Gas Results Test 09/15/24 10:48 09/16/24 07:47 Arterial Blood pH 7.530 (7.350-7.450) 7.553 (7.350-7.450) FiO2 % 30.0 30.0 Microbiology Microbiology Date/Time Source Procedure Growth Status 09/11/24 17:24 Blood Blood Culture - Preliminary NO GROWTH AFTER 72 HOURS OF INCUBATION. Resulted 09/11/24 14:54 Voided Urine Urine Culture - Final Complete 09/10/24 23:30 Nose MRSA Screen - Final Complete 09/10/24 23:16 Sputum Gram Stain - Final Complete 09/10/24 23:16 Respiratory Culture - Final Pseudomonas aeruginosa Complete Labs and/or images reviewed: Labs reviewed by me, Image(s) reviewed by me Assessment/Plan Assessment/Plan Impression: -NSTEMI type 1 -history of coronary artery disease with CABG with multiple grafts down -acute on chronic systolic heart failure with ejection fraction 10% -acute hypoxic respiratory failure with mechanical ventilation -community-acquired pneumonia with Pseudomonas aeruginosa -acute metabolic encephalopathy versus delirium -sick sinus syndrome, status post pacemaker implant -cardiogenic shock Plan: -events: Patient continues to be encephalopathic. Patient on CPAP at this time. Long discussion made with the patient's , and colitis regarding plan of care. At this time she wishes for the patient to be made a modified DNR with no compressions, no defibrillation, no ACLS medications, but continuation of vasopressor therapy as well as antibiotics. Comfort measures also in place with this plan of care. -continue current ventilator settings. Pulmonology on board -continue antibiotic therapy with Zosyn -left arm to sling -continue bronchodilators -IV diuresis -weaned off vasopressors -PUD/DVT prophylaxis -repeat labs, chest x-ray, ABG in a.m. -plan of care discussed with patient's family were bedside. Critical care time spent with patient discussing and formulating plan of care: 90 minutes. This does not include time spent performing procedures. This medical document was created using an electronic medical record system with [id number] dictation system. Although this document has been carefully reviewed, there may still be some phonetic and typographical errors. These areas are purely typographical due to imperfections of the software programs, and do not reflect any compromise in the patient's medical care. Plan discussed with: Patient, Other (RN) My Orders Orders - SUJATA HERNANDEZ NP Procedure Category Date Status Time Furosemide Injection PHA 09/17/24 In Process (Lasix Injection) 10:00 Basic Metabolic Panel LAB 09/17/24 Verified 05:00 Basic Metabolic Panel LAB 09/18/24 Verified 05:00 Basic Metabolic Panel LAB 09/19/24 Verified 05:00 Complete Blood Count LAB 09/16/24 Logged 09:03 Dopamine 1600mcg/Ml PHA 09/16/24 In Process [id number] 09:15 Date of Service: Sep 16, 2024 Billing Provider: SUJATA HERNANDEZ NP Common Visit Codes: 29994-SOJYYGID CARE 30-74 MIN, 54685-QZBMCLUP CARE-EACH +30MIN SUJATA HERNANDEZ NP Sep 16, 2024 09:41
[2024-09-16] MEDS: DOPamine 1600MCG/ML D5W 250 ML IV SCH (09:53)
[2024-09-16] MEDS: LORazepam 2MG/ML-1ML VIAL IV PRN (11:45)
[2024-09-16] MEDS: MORPHINE SULFATE INJ 2 MG/ml SYRG IV PRN (11:57)
--- NOTE | 2024-09-16 12:00 | DVHPN2 ---
Progress Note - Dictate Date Seen: Sep 16, 2024 Medical Necessity Reason Pt with a Central, PICC or Fol: Yes The following are medically ne: Central Line, Aguayo Catheter Subjective Patient seen and examined Overnight events reviewed vital signs Vital Sign Date Time Temp Pulse Resp B/P (MAP) Pulse Ox O2 Delivery O2 Flow Rate FiO2 09/16/24 10:16 81 11 100/77 (85) 100 09/16/24 10:00 Mechanical Ventilator+ 30 30 09/16/24 08:00 98.4 98.4 Total Intake and Output 09/15/24 09/15/24 09/16/24 14:59 22:59 06:59 Intake Total 263.461 ml 364.346 ml 509.118 ml Output Total 550 ml 800 ml Balance 263.461 ml -185.654 ml -290.882 ml medications Current Medications Medications Dose Ordered Sig/Mervat Route Start Time Stop Time Status Last Admin Dose Admin Norepinephrine Bitartrate 250 ml @ 3.75 mls/hr Q24H IV 09/10/24 17:00 09/15/24 17:43 11.25 MLS/HR Fentanyl Citrate 250 ml @ 2.5 mls/hr Q24H IV 09/10/24 19:00 09/14/24 17:41 2.5 MLS/HR Nitroglycerin 0.4 mg Q5MINP PRN SL 09/10/24 19:00 Pantoprazole Sodium 40 mg DAILY IV 09/12/24 10:00 09/16/24 09:05 40 MG Enteral Nutritional Formula 1,000 ml 30ML/HR GT 09/11/24 17:30 09/14/24 17:53 1,000 ML Diagnostic Test (Pha) 1 strip Q6HR 09/12/24 18:00 09/16/24 05:49 1 STRIP Insulin Human Regular Q6HR SC 09/12/24 18:00 09/16/24 05:50 9 UNITS Dextrose 50 ml UD PRN IV 09/12/24 13:00 Lorazepam 1 mg Q6HP PRN IV 09/13/24 15:45 09/16/24 09:52 1 MG Lorazepam 1 mg Q8HP PRN IV 09/13/24 16:00 UNV Lactulose 30 ml DAILYPRN PRN PO 09/14/24 11:30 09/14/24 17:37 30 ML Piperacillin Sod/ Tazobactam Sod 100 ml @ 25 mls/hr Q8HR IV 09/14/24 22:00 09/16/24 06:03 25 MLS/HR Furosemide 20 mg DAILY IV 09/17/24 10:00 Dopamine HCl/ Dextrose 250 ml @ 6.253 mls/ hr Q24H IV 09/16/24 09:15 09/16/24 09:53 6.253 MLS/HR Lorazepam 1 mg Q1HP PRN IV 09/16/24 09:30 Morphine Sulfate 1 mg Q1HP PRN IV 09/16/24 09:30 laboratory and microbiology Laboratory Tests 09/16/24 03:23 Test 09/16/24 03:23 Range/Units Serum Glucose 264 H 74-106 mg/dL Assessment/Plan Kitchen Aide rounds Impression Acute hypoxemic respiratory failure Hx of substance abuse Pneumonia Delirium Patient seen and examined in ICU Events persistent delirium no improvement in MS per pts family pt terminally weaned and extubated this morning NG in place restrained family at bedside plan ativan/morphine ok to d/grade discussed with hospitalist Dietary Evaluation Review Comments: 1. Current TF nepro support pt's estimated needs 89% pro, and 92% energy if running FS. 2. Reassess protein and energy needs when pt is off vent. Expected Outcomes/Goals: maintain wt, Plan discussed with: Other (rn) JASBIR HERBERT MD Sep 16, 2024 12:00
--- NOTE | 2024-09-16 22:38 | DVHPN2 ---
Progress Note - Dictate Date Seen: Sep 16, 2024 Medical Necessity Reason Pt with a Central, PICC or Fol: Yes The following are medically ne: Central Line, Aguayo Catheter Subjective Patient was seen and evaluated in follow up in the ICU. Patient was compassionately extubated per families wishes today. Patient is encephalopathic. NA 150, K 3.3, CL 109, BUN 35, CA 8.4, AST 212, ALT 948. vital signs Vital Sign Date Time Temp Pulse Resp B/P (MAP) Pulse Ox O2 Delivery O2 Flow Rate FiO2 09/16/24 11:57 96 13 87/60 09/16/24 10:16 100 09/16/24 10:00 Mechanical Ventilator+ 30 30 09/16/24 08:00 98.4 98.4 Total Intake and Output 09/15/24 09/15/24 09/16/24 15:00 23:00 07:00 Intake Total 247.421 ml 308.662 ml 535.655 ml Output Total 550 ml 800 ml Balance 247.421 ml -241.338 ml -264.345 ml medications Current Medications Medications Dose Ordered Sig/Mervat Route Start Time Stop Time Status Last Admin Dose Admin Lorazepam 1 mg Q6HP PRN IV 09/13/24 15:45 09/16/24 09:52 1 MG Lorazepam 1 mg Q8HP PRN IV 09/13/24 16:00 UNV Morphine Sulfate 1 mg Q1HP PRN IV 09/16/24 09:30 09/16/24 11:57 1 MG objective GENERAL: Ill appearing. EYES: PERRL, EOMI. Anicteric. HENT: Moist mucous membranes. LUNGS: Decreased breath sounds. CARDIOVASCULAR: Regular rate and rhythm. ABDOMEN: Soft, nontender and nondistended. EXTREMITIES: No edema. SKIN: Warm, dry. laboratory and microbiology Laboratory Tests 09/16/24 03:23 Test 09/16/24 03:23 Range/Units Serum Glucose 264 H 74-106 mg/dL Problem List High-risk non ST-elevation myocardial infarction. Sick sinus syndrome with severe bradycardia and sinus pauses s/p TV pacer. Coronary artery disease status post quadruple CABG, 2020. Diabetes mellitus with diabetic ketoacidosis. History of hypertension. Dyslipidemia. Thrombocytopenia. Likely AVA on CKD. Metabolic encephalopathy. Lactic acidosis. Hyperphosphatemia. Hypocalcemia. Transaminitis. Superficial venous thrombosis on right cephalic vein. Acute hypoxic respiratory failure, on mechanical ventilator. Pneumonia. Anemia normocytic normochromic. Assessment/Plan Continued all current supportive medical care. IV antibiotics as ordered. Diuretics with Lasix. Nitro SL. Vasopressors for hemodynamic support. GI prophylactics. Additional plan as per the hospital course. Critical care time of 45 minutes provided to include time spent evaluation of patient at bedside, when appropriate patient/family education for diagnosis, treatment plan, review of pertinent medical information and discussion of care with specialty providers and PCP. Dietary Evaluation Review Comments: 1. Current TF nepro support pt's estimated needs 89% pro, and 92% energy if running FS. 2. Reassess protein and energy needs when pt is off vent. Expected Outcomes/Goals: maintain wt, Plan discussed with: Other AVELINO GREWAL MD Sep 16, 2024 13:01
[2024-09-17] MEDS ORDERED: FUROSEMIDE 20 MG/2 ML VIAL IV SCH (10:00)
--- NOTE | 2024-09-17 15:27 | DVHDS2 ---
Summary Date of Admission Sep 10, 2024 at 18:52 Date and Time of Expiration: Sep 16, 2024 22:10 Reason for Admission: Chest pain Labs/Diagnostic Data: Laboratory Results Test 09/16/24 12:03 09/16/24 07:47 09/16/24 03:23 09/15/24 10:48 POC Glucose 133 mg/dl (70-106) Blood Gas Specimen Type Arterial Blood Gas Sample Site Right brachial Blood Gas Patient Temperature 37.0 Arterial Blood Date Drawn [id number] Arterial Blood pH 7.553 (7.350-7.450) Arterial Blood Partial Pressure CO2 31.6 mmHg (35.0-48.0) Arterial Blood Partial Pressure O2 135.4 mmHg (83.0-108.0) Arterial Blood HCO3 27.2 mmol/L (21.0-28.0) Arterial Blood Oxygen Saturation 98.2 % (94.0-98.0) Arterial Blood Base Excess 5.1 mmol/L (-2.0-3.0) Arterial Blood Oxyhemoglobin 97.8 % (94.0-98.0) Arterial Blood Carboxyhemoglobin 0.3 % (0.5-1.5) Arterial Blood Methemoglobin 0.1 % (0.0-1.5) Bruno Test N/a Blood Gas Total Hemoglobin 11.50 g/dL (13.5-17.5) Blood Gas Set Respiration Rate 16.0 Blood Gas Modality Vent - ac Blood Gas Spontaneous Rate 16 FiO2 % 30.0 Blood Gas Tidal Volume 500.0 Blood Gas PEEP or CPAP 5.0 Blood Gas Critical Value Read Back Yes Blood Gas Notified Whom sasha Sanders Blood Gas Notified Time [id number] Blood Gas Notified By joan Gill rt. White Blood Count 7.9 10^3/uL (4.4-10.8) Red Blood Count 3.50 10^6/uL (4.5-5.90) Hemoglobin 11.3 g/dL (13.5-17.5) Hematocrit 32.9 % (41.0-53.0) Mean Corpuscular Volume 94.0 fL (80.0-100.0) Mean Corpuscular Hemoglobin 32.3 pg (28.0-32.0) Mean Corpuscular Hemoglobin Concent 34.3 g/dL (32.0-36.0) Red Cell Distribution Width 14.7 % (11.8-14.3) Platelet Count 50 10^3/uL (140-450) Mean Platelet Volume 10.5 fL (6.9-10.8) Neutrophils (%) (Auto) 77.4 % (37.0-80.0) Lymphocytes (%) (Auto) 12.1 % (10.0-50.0) Monocytes (%) (Auto) 9.5 % (0.0-12.0) Eosinophils (%) (Auto) 0.9 % (0.0-7.0) Basophils (%) (Auto) 0.1 % (0.0-2.0) Neutrophils # (Auto) 6.1 10 ^3/uL (1.6-8.6) Lymphocytes # (Auto) 1.0 10 ^3/uL (0.4-5.4) Monocytes # (Auto) 0.8 10 ^3/uL (0-1.3) Eosinophils # (Auto) 0.1 10 ^3/uL (0-0.8) Basophils # (Auto) 0 10 ^3/uL (0-0.2) Nucleated Red Blood Cells 0.2 % Sodium Level 150 mmol/L (136-145) Potassium Level 3.3 mmol/L (3.5-5.1) Chloride Level 109 mmol/L (98-107) Carbon Dioxide Level 31 mmol/L (20-31) Anion Gap 10 (5-15) Blood Urea Nitrogen 35 mg/dL (9-23) Creatinine 0.85 mg/dL (0.700-1.30) Glomerular Filtration Rate Calc 91 mL/min (>90) BUN/Creatinine Ratio 41.2 (10.0-20.0) Serum Glucose 264 mg/dL (74-106) Calcium Level 8.4 mg/dL (8.7-10.4) Magnesium Level 2.7 mg/dL (1.6-2.6) Total Bilirubin 1.1 mg/dL (0.2-1.0) Aspartate Amino Transferase (AST) 212 U/L (13-40) Alanine Aminotransferase (ALT) 948 U/L (7-40) Alkaline Phosphatase 88 U/L (46-116) Total Protein 5.6 g/dL (5.7-8.2) Albumin 3.1 g/dL (3.2-4.8) Blood Gas Pressure Support 8 Test 09/14/24 10:11 09/12/24 11:30 09/11/24 14:56 09/11/24 14:54 Ammonia 14 umol/L (11-32) Random Vancomycin Level 7.8 ug/mL (5-10) Influenza Type A Antigen Negative (Negative) Influenza Type B Antigen Negative (Negative) SARS-CoV-2 Antigen (Rapid) Negative (NEGATIVE) Urine Osmolality 480 mOsm/kg Urine Creatinine 51.07 mg/dL (30.0-125.0) Urine Protein/Creatinine Ratio 0.66 Urine Sodium 37 mmol/L (40-220) Urine Total Protein 33.5 mg/dL (1-14) Urine Opiates Screen Pos (NEGATIVE) Urine Fentanyl Screen Pos (NEGATIVE) Urine Barbiturates Screen Neg (NEGATIVE) Urine Phencyclidine Screen Neg (NEGATIVE) Urine Amphetamines Screen Neg (NEGATIVE) Urine Benzodiazepines Screen Pos (NEGATIVE) Urine Cocaine Screen Neg (NEGATIVE) Urine Cannabinoids Screen Neg (NEGATIVE) Test 09/11/24 13:01 09/11/24 10:35 09/11/24 03:15 09/10/24 15:47 Prothrombin Time 16.7 sec (9.3-11.8) Prothrombin Time INR 1.66 (0.9-1.15) Activated Partial Thromboplast Time 32.5 SEC (24.5-34.5) Lactic Acid Level 2.6 mmol/L (0.4-2.0) Ferritin 1778.0 ng/mL (22-322) Hepatitis A IgM Antibody Negative Hepatitis B Surface Antigen Negative (Negative) Hepatitis B Core IgM Antibody Negative (Negative) Hepatitis C Antibody Negative (Negative) Iron Level 82 ug/dL (65-175) Total Iron Binding Capacity 235 ug/dL (250-425) Percent Iron Saturation 34.9 % (20-55) Direct Bilirubin 1.1 mg/dL (<0.3) Vitamin D 25-Hydroxy 43.0 ng/mL (30.0-100) Phosphorus Level 5.2 mg/dL (2.4-5.1) Creatine Kinase 1056 U/L (46-171) Troponin I High Sensitivity > 14924 ng/L (</=54) B-Type Natriuretic Peptide 3744.56 pg/mL (0-100) Parathyroid Hormone (Intact) 154.1 pg/mL (18.4-80.1) Urine Color Yellow (Yellow) Urine Clarity Clear (Clear) Urine pH 5.0 (5.0-9.0) Urine Specific [place] 1.019 (1.001-1.035) Urine Protein Negative (Negative) Urine Ketones 1+ (Negative) Urine Blood Negative /uL (Negative) Urine Nitrite Negative (Negative) Urine Bilirubin Negative (Negative) Urine Urobilinogen Normal mg/dL (Negative) Urine Leukocyte Esterase Negative /uL (Negative) Urine RBC 1 /hpf (0 - 3) Urine Microscopic WBC 2 /HPF (0-3) Urine Squamous Epithelial Cells Few /hpf (<5) Urine Bacteria None seen /hpf (None Seen) Urine Hyaline Casts Many /lpf (0 - 2) Urine Mucus Few (None Seen) Urine Glucose 4+ mg/dL (Normal) Test 09/10/24 15:32 09/10/24 11:53 Platelet Estimate Decreased Red Blood Cell Morphology Normal Triglycerides Level 92 mg/dL (< 150) Cholesterol Level 87 mg/dL (< 200) LDL Cholesterol 34 mg/dL (< 100) HDL Cholesterol 35 mg/dL (40-59) Beta-Hydroxybutyric Acid 0.325 mmol/L (< 0.4) Thyroid Stimulating Hormone (TSH) 4.76 uIU/mL (0.55-4.78) Hemoglobin A1c 7.8 % A1C (<5.7) Other Laboratory Tests 09/16/24 03:23 Brief Hx & Hospital Course: This was a 73-year-old male who was brought into the ED with chief complain of chest pain, dizziness, lightheadedness, vomiting, mumbling speech. Past Medical History: Diabetes, hyperlipidemia, hypertension, CABG- quad vessel. Past Surgical History: Appendectomy and CABG, vocal cord surgery one month ago Past Social History: Quit smoking 22 years ago, was a heavy smoker for 15 years. He also quit drinking 22 year, unknown alcohol intake. Denied illicit drug use. Lives at home with the spouse. Home medications: Amitriptyline, clonazepam, docusate, gabapentin, lamotrigine, lisinopril 5 mg, methocarbamol, metoprolol 25 mg, naproxen 500 mg, simvastatin 40 mg, temazepam, tramadol, venlafaxine Patient was initially brought in by ambulance, history was gathered per . She stated that the patient has been experiencing lightheadedness, dizziness, nausea, vomiting for the last 3-4 days. She also stated that she has been falling frequently for the last couple of months. She also stated that he has been experiencing chest pain since he had the CABG procedure in 2020. However in the last couple of days this chest pain became unbearable. Z that the patient was also experiencing coughing, having chills. When she brought her to the hospital she noticed that his speech was mumbling. stated that the patient has a start any new medications in the last 4-6 weeks and denied any sick contacts in the last month. However the patient was indeed sick with the influenza a couple of weeks ago. stated that the patient has a bright red blood in the stools. In the ER patient was found to be bradycardic, hypotensive, he was also altered, they had to intubate him due to airway protection and they also started him on vasopressors, dopamine. Patient was having sinus rhythm with intermittent bradycardia episodes which will lead to sinus pauses up to 6 seconds. A transvenous pacer was also placed.Patient was taken to the photonic laboratory technician, angiogram was done, diffuse vessel disease was appreciated, no stents placed. Permanent pacemaker was placed. Patient has had initial head CT which was unremarkable. Patient was continued on Lasix for his CHF. He was on broad-spectrum antibiotics given likelihood of aspiration pneumonia. Patient was on minimal vent settings. His kidney function improved significantly throughout the days. We tried several times to perform CPAP trial, patient was weaned down on the sedation, however he is still seem significantly altered. We had extensive conversations with the family members, was decided the patient was going to be modified code. However, after a couple of days of trying to wean him off the oxygen and he still wean altered it was decided for the patient to be DNR/DNI and to put him on comfort measures. Patient was extubated, he has started to become bradycardic and hypotensive. He had time of the of 2210hrs. Case was discussed with Dr. Vergara Consults/Reason for consult Cardiology was consulted due to chest pain and bradycardia Nephrology was consulted due to AVA Operations or Procedures [address] [address] Ph: [phone] DIAGNOSTIC IMAGING Diagnostic Imaging Report : [id number] Signed PATIENT: FABIO KNUTSON ACCT: [id number] UNIT: [id number] : 1950 LOC: ER ROOM / BED: / AGE / SEX: 73 / M ADM STATUS: REG ER SERVICE 1538 ORDERING PHYSICIAN: LINDSEY VU MD PROCEDURE(s): CXRP - CHEST PORTABLE REASON: sob ORDER NUMBER(s): [id number], ACCESSION NUMBER(s): [id number] EXAM: XY CHEST PORTABLE TECHNIQUE: Single frontal chest radiograph CLINICAL HISTORY: sob COMPARISON: None Findings/Impression: Frontal chest radiograph demonstrates no acute osseous or superficial soft tissue abnormalities. The trachea is midline. The cardiac silhouette and mediastinum are within normal limits. No pneumothorax, pleural effusions, or consolidations. ATED BY: ISABEL GLOVER DO DICTATED DATE/TIME: 09/10/24 155 SIGNED BY: ISABEL GLOVER DO SIGNED DATE/TIME: 09/10/24 155 CC: [place] [id number] Ph: [phone] DIAGNOSTIC IMAGING Diagnostic Imaging Report : [id number] Signed PATIENT: FABIO KNUTSON ACCT: [id number] UNIT: [id number] : 1950 LOC: ER ROOM / BED: / AGE / SEX: 73 / M ADM STATUS: REG ER SERVICE 1725 ORDERING PHYSICIAN: LINDSEY VU MD PROCEDURE(s): CXR1 - CHEST XRAY 1 VIEW REASON: s/p transvenous pacemaker ORDER NUMBER(s): [id number], ACCESSION NUMBER(s): [id number] EXAM: XY CHEST XRAY 1 VIEW TECHNIQUE: Single frontal chest radiograph CLINICAL HISTORY: s/p transvenous pacemaker COMPARISON: XY CHEST PORTABLE on DOS: 09/10/24, XY CHEST PORTABLE on DOS: 09/10/24 Findings/Impression: Frontal chest radiograph demonstrates no acute osseous or superficial soft tissue abnormalities. Endotracheal tube terminates 3.5 cm from the raffi. Interval transvenous pacemaker terminates near the right atrium. The trachea is midline. The cardiac silhouette and mediastinum are within normal limits. No pneumothorax, pleural effusions, or consolidations. ATED BY: ISABEL GLOVER DO DICTATED DATE/TIME: 09/10/241755 SIGNED BY: ISABEL GLOVER DO SIGNED DATE/TIME: 09/10/241755 CC: [place] [address] Ph: [phone] DIAGNOSTIC IMAGING Diagnostic Imaging Report : [id number] Signed PATIENT: FABIO KNUTSON ACCT: [id number] UNIT: [id number] : 1950 LOC: ER ROOM / BED: / AGE / SEX: 73 / M ADM STATUS: REG ER SERVICE 40 ORDERING PHYSICIAN: GAYATHRI DOWNING PROCEDURE(s): HWOCT - HEAD WITHOUT CONTRAST REASON: Confusion with fall injuries ORDER NUMBER(s): [id number], ACCESSION NUMBER(s): [id number] EXAM: CT HEAD WITHOUT CONTRAST DATE OF SERVICE: 09/10/2024 05:52 PM ORDERING PHYSICIAN: LINDSEY VU FREIGHT TEAM ASSOCIATE REASON FOR EXAM: Confusion with fall injuries TECHNIQUE: COMPARISON: None FINDINGS: There is very slight cortical atrophy. There is no midline shift or focal mass effect the hippocampal structures are symmetric there is no intracranial fluid collection or signs of hemorrhage. Midline structures are unremarkable Paranasal sinuses and mastoid air cells are clear calvarium is intact IMPRESSION: 1. . Mild cortical atrophy otherwise unremarkable study ATED BY: DELROY TREJO MD DICTATED DATE/TIME: 09/10/241820 SIGNED BY: DELROY TREJO MD SIGNED DATE/TIME: 09/10/241820 CC: [address] [address] Ph: [phone] DIAGNOSTIC IMAGING Diagnostic Imaging Report : [id number] Signed PATIENT: FABIO KNUTSON ACCT: [id number] UNIT: [id number] : 1950 LOC: ICU WEST ROOM / BED: 0111-CC / A AGE / SEX: 73 / M ADM STATUS: ADM IN SERVICE 1002 ORDERING PHYSICIAN: GAYATHRI DOWNING FREIGHT TEAM ASSOCIATE PROCEDURE(s): BLEAD - BiLat Low Ext Art Duplex REASON: Weak pedal pulses r/o PAD ORDER NUMBER(s): [id number], ACCESSION NUMBER(s): [id number] BILATERAL Lower Extremity Arterial Duplex Date: 09/11/2024 10:26 AM Clinical History: Weak pedal pulses r/o PAD Comparison: None Technique: Duplex Doppler evaluation including color Doppler and spectral/pulsed waveform analysis of the lower extremity arteries was performed. Finding: RIGHT: Peak systolic velocities are as follows: SKIN FITTER not visualized due to central. Deep femoral not visualized due to central line. SFA not visualized due to central line. SFA mid-portion 47 cm/s SFA distal 46 cm/s Popliteal 44 cm/s Posterior tibial 48 cm/s Dorsalis pedis 31 cm/s The waveforms are within normal limits. LEFT: Peak systolic velocities are as follows: SKIN FITTER 70 cm/s Deep femoral 106 cm/s SFA proximal 39 cm/s SFA mid-portion 50 cm/s SFA distal 41 cm/s Popliteal 46 cm/s Posterior tibial 34 cm/s Dorsalis pedis 24 cm/s The waveforms are within normal limits. REFERENCE VALUES, [facility]) vascular Imaging Lab Criteria: Peak systolic velocity ranges (in cm/sec) are as follows: <150 cm/s - <20 % stenosis 150-200 cm/s - 20-49% stenosis 200-300 cm/s - 50-75% stenosis >300 cm/s -> 75% stenosis There is atherosclerotic vascular disease of the bilateral lower extremities. IMPRESSION: Evaluation is limited as right common femoral artery, right deep femoral artery, right proximal superficial femoral artery could not be evaluated due to central line. No obvious evidence of hemodynamically significant stenosis or occlusion in the right lower extremity. There is no evidence for peripheral vascular insufficiency in the left lower extremity. No significant focal stenosis is identified. ATED BY: OTILIA SIM MD DICTATED DATE/TIME: 09/11/24 133 SIGNED BY: OTILIA SIM MD SIGNED DATE/TIME: 09/11/24 133 CC: [place] [address] Ph: [phone] DIAGNOSTIC IMAGING Diagnostic Imaging Report : [id number] Signed PATIENT: FABIO KNUTSON ACCT: [id number] UNIT: [id number] : 1950 LOC: ICU [place] ROOM / BED: [address] [place] [address] A AGE / SEX: 73 / M ADM STATUS: ADM IN SERVICE 1002 ORDERING PHYSICIAN: GAYATHRI DOWNING PROCEDURE(s): RUDVT - Rt Upper DVT REASON: Swelling r/o DVT ORDER NUMBER(s): [id number], ACCESSION NUMBER(s): [id number] Upper Extremity Venous Duplex Clinical History: Swelling r/o DVT Comparison: None Technique: Duplex Doppler evaluation of the venous system of the RIGHT lower neck and upper extremity including color Doppler and spectral/pulsed waveform analysis was performed. Findings: The internal jugular vein demonstrates appropriate compressibility and waveform variability. The subclavian vein is patent on color Doppler evaluation without intraluminal thrombus and demonstrates waveform variability. The visualized portion of the brachiocephalic vein is patent on color Doppler evaluation without intraluminal thrombus and demonstrates waveform variability. The axillary vein demonstrates appropriate compressibility and waveform variability. The brachial veins demonstrate appropriate compressibility and patency on Doppler evaluation. The basilic vein demonstrates appropriate compressibility and patency on Doppler evaluation. The cephalic vein is not compressible.. Impression: Thrombus in the right cephalic vein is visualized. ATED BY: OTILIA SIM MD DICTATED DATE/TIME: 09/11/24 133 SIGNED BY: OTILIA SIM MD SIGNED DATE/TIME: 09/11/24 1332 CC: [place] [address] Ph: [phone] DIAGNOSTIC IMAGING Diagnostic Imaging Report : [id number] Signed PATIENT: FABIO KNUTSON ACCT: [id number] UNIT: [id number] : 1950 LOC: ICU [place] ROOM / BED: [address] [place] [address] A AGE / SEX: 73 / M ADM STATUS: ADM IN SERVICE 1053 ORDERING PHYSICIAN: MARIN WHITE,SASHA RESIDENT PROCEDURE(s): LIVUS - LIVER REASON: transaminitis ORDER NUMBER(s): [id number], ACCESSION NUMBER(s): [id number] INDICATION: transaminitis TECHNIQUE: Multiple real-time sonographic images were obtained of the right upper quadrant. COMPARISON: None FINDINGS: The liver demonstrates heterogeneous echotexture without focal mass lesions. The liver measures 15cm. There is no intrahepatic or extrahepatic ductal dilatation. The common duct measures 10 mm. The gallbladder is without evidence of stone or sludge. The gallbladder wall measures 0.2 mm and is within normal limits. The right kidney measures 9 cm. The right kidney is normal in contour, size, and shape. The echogenicity is normal. There is no hydronephrosis. The pancreas is not well visualized due to overlying bowel gas. IMPRESSION: No sonographic evidence of gallstones or acute cholecystitis. Hepatic steatosis ATED BY: MAGDIEL BONNER MD DICTATED DATE/TIME: 09/11/24 1301 SIGNED BY: MAGDIEL BONNER MD SIGNED DATE/TIME: 09/11/24 1301 CC: [place] [address] Ph: [phone] DIAGNOSTIC IMAGING Diagnostic Imaging Report : [id number] Signed PATIENT: FABIO KNUTSON ACCT: [id number] UNIT: [id number] : 1950 LOC: [facility] ROOM / BED: [address] [place] [address] AGE / SEX: 73 / M ADM STATUS: ADM IN SERVICE 040 ORDERING PHYSICIAN: MARC QURESHI PROCEDURE(s): CXRP - CHEST PORTABLE REASON: Intubated ORDER NUMBER(s): [id number], ACCESSION NUMBER(s): [id number] CHEST RADIOGRAPH Indication: Intubated Technique: Single frontal view of the chest was obtained COMPARISON: XY CHEST PORTABLE on DOS: 09/15/24, XY CHEST PORTABLE on DOS: 09/14/24, XY CHEST PORTABLE on DOS: 09/13/24, XY CHEST PORTABLE on DOS: 09/12/24, XY CHEST PORTABLE on DOS: 09/11/24 FINDINGS: Lines and Tubes: The endotracheal tube is 0.9 cm above the level of the raffi and May benefit from being retracted slightly. The other lines and tubes are unchanged. Lungs: Clear Pleura: No effusion. No pneumothorax. Cardiomediastinal contours: Unremarkable Bones: Unremarkable IMPRESSION: 1. No acute disease. 2. Endotracheal tube tip 0.9 cm above the level of the raffi. Consider retracting by 2 cm. ATED BY: CALIN MUÑOZ MD DICTATED DATE/TIME: 09/16/24627 SIGNED BY: CALIN MUÑOZ MD SIGNED DATE/TIME: 09/16/24627 CC: Final Diagnosis/Problems List #Metabolic encephalopathy #Acute on chronic systolic CHF #Cardiogenic shock #Sick sinus syndrome status post permanent pacemaker placement, [employer] #CAD, status post CABG #Ischemic cardiomyopathy #History of hypertension #NSTEMI type 1 #Dyslipidemia #Possible PAD #Superficial venous thrombosis on right cephalic vein #Acute hypoxic respiratory failure, on mechanical ventilator #Pneumonia, Gram-positive versus Gram-negative, aspiration pneumonia #AVA due to VMN, likely hemodynamically mediated #Type 2 diabetes mellitus, uncontrolled #Transaminitis, likely liver shock H/o GERD #Anemia normocytic normochromic #Thrombocytopenia, moderate #Septic shock #Lactic acidosis #Pneumonia, Gram-positive versus Gram-negative, aspiration pneumonia History of depression Discharge Disposition: at [facility] SASHA WHITE RESIDENT Sep 17, 2024 15:26
== END 2024-09-16 22:10 | DRG 853 ==
LOC: EDBD 15:09 → ER 15:09 → OVERFLOW 18:52 → ICU WEST 23:00
PROVIDERS: ADMIT Internal Medicine Pulmonary Disease; ATTEND Emergency Medicine
PROC: 0JH606Z Insertion of Pacemaker, Dual Chamber into Chest Subcutaneous Tissue and Fascia, Open Approach (ICD-10-PCS; principal; 2024-09-10)
PROC: 02H63JZ Insertion of Pacemaker Lead into Right Atrium, Percutaneous Approach (ICD-10-PCS; 2024-09-10)
PROC: 02H633Z Insertion of Infusion Device into Right Atrium, Percutaneous Approach (ICD-10-PCS; 2024-09-10)
PROC: B2111ZZ Fluoroscopy of Multiple Coronary Arteries using Low Osmolar Contrast (ICD-10-PCS; 2024-09-10)
PROC: B2151ZZ Fluoroscopy of Left Heart using Low Osmolar Contrast (ICD-10-PCS; 2024-09-10)
PROC: B21F1ZZ Fluoroscopy of Other Bypass Graft using Low Osmolar Contrast (ICD-10-PCS; 2024-09-10)
PROC: B2181ZZ Fluoroscopy of Left Internal Mammary Bypass Graft using Low Osmolar Contrast (ICD-10-PCS; 2024-09-10)
PROC: 4A023N7 Measurement of Cardiac Sampling and Pressure, Left Heart, Percutaneous Approach (ICD-10-PCS; 2024-09-10)
PROC: 04HY32Z Insertion of Monitoring Device into Lower Artery, Percutaneous Approach (ICD-10-PCS; 2024-09-10)
PROC: B4101ZZ Fluoroscopy of Abdominal Aorta using Low Osmolar Contrast (ICD-10-PCS; 2024-09-10)
PROC: B5171ZZ Fluoroscopy of Left Subclavian Vein using Low Osmolar Contrast (ICD-10-PCS; 2024-09-10)
PROC: B41F1ZZ Fluoroscopy of Right Lower Extremity Arteries using Low Osmolar Contrast (ICD-10-PCS; 2024-09-10)
PROC: 06HY33Z Insertion of Infusion Device into Lower Vein, Percutaneous Approach (ICD-10-PCS; 2024-09-10)
PROC: 02HK3JZ Insertion of Pacemaker Lead into Right Ventricle, Percutaneous Approach (ICD-10-PCS; 2024-09-10)
PROC: 0BH17EZ Insertion of Endotracheal Airway into Trachea, Via Natural or Artificial Opening (ICD-10-PCS; 2024-09-10)
PROC: 5A1955Z Respiratory Ventilation, Greater than 96 Consecutive Hours (ICD-10-PCS; 2024-09-10)
PROC: 02HV33Z Insertion of Infusion Device into Superior Vena Cava, Percutaneous Approach (ICD-10-PCS; 2024-09-11)
DX: A41.9 Sepsis, unspecified organism (principal); E11.10 Type 2 diabetes mellitus with ketoacidosis without coma; I21.4 Non-ST elevation (NSTEMI) myocardial infarction; G93.41 Metabolic encephalopathy; J96.01 Acute respiratory failure with hypoxia; J69.0 Pneumonitis due to inhalation of food and vomit; J15.9 Unspecified bacterial pneumonia; R65.21 Severe sepsis with septic shock; I50.23 Acute on chronic systolic (congestive) heart failure; J15.1 Pneumonia due to Pseudomonas; I44.2 Atrioventricular block, complete; N17.9 Acute kidney failure, unspecified; I82.601 Acute embolism and thrombosis of unspecified veins of right upper extremity; I13.0 Hypertensive heart and chronic kidney disease with heart failure and stage 1 through stage 4 chronic kidney disease, or unspecified chronic kidney disease; I45.2 Bifascicular block; I49.5 Sick sinus syndrome; R57.0 Cardiogenic shock; E78.5 Hyperlipidemia, unspecified; D69.6 Thrombocytopenia, unspecified; Z20.822 Contact with and (suspected) exposure to COVID-19; N14.11 Contrast-induced nephropathy; T50.8X5A Adverse effect of diagnostic agents, initial encounter; D64.9 Anemia, unspecified; E11.51 Type 2 diabetes mellitus with diabetic peripheral angiopathy without gangrene; E83.51 Hypocalcemia; G89.29 Other chronic pain; K21.9 Gastro-esophageal reflux disease without esophagitis; M54.9 Dorsalgia, unspecified; E83.39 Other disorders of phosphorus metabolism; I25.10 Atherosclerotic heart disease of native coronary artery without angina pectoris; E11.22 Type 2 diabetes mellitus with diabetic chronic kidney disease; N18.9 Chronic kidney disease, unspecified; I25.2 Old myocardial infarction; Z95.1 Presence of aortocoronary bypass graft; Z79.899 Other long term (current) drug therapy; Y92.89 Other specified places as the place of occurrence of the external cause; Z87.891 Personal history of nicotine dependence; Z79.4 Long term (current) use of insulin
CPT/HCPCS: 31500; 33208; 36415; 36556; 36600; 36620; 70450; 71045; 75710; 76705; 80048; 80053; 80061; 80074; 80076; 80202; 80307; 81001; 82010; 82140; 82306; 82550; 82565; 82570; 82728; 82805; 82962; 83036; 83540; 83550; 83605; 83735; 83880; 83935; 83970; 84100; 84156; 84300; 84443; 84484; 85025; 85610; 85730; 87040; 87070; 87077; 87081; 87086; 87186; 87205; 87426; 87804; 93005; 93306; 93459; 93925; 93971; 94002; 94003; 99152; 99153; 99291; 99292; C1751; G0378; J0171; J0461; J1815; J2470; J2543; J2704